=== PATIENT | male | born 1945 | race American Indian/Alaskan Native ===

== ENCOUNTER 2016-08-18 20:13 | Inpatient (IN) | payer MEDICARE ==
[2016-08-18] MEDS ORDERED: D50W (25GM) IV ONE (20:25)
--- NOTE | 2016-08-18 20:26 | Emergency Department Report ---
ED Neuro Deficit HPI - General Stated Complaint: AMS Time Seen by Provider: 08/18/16 20:19 - History of Present Illness Initial Comments: 70-year-old male with history of hypertension and end-stage renal disease on hemodialysis unclear when his last dialysis was brought in by ambulance due to altered mental status. Patient was found sitting outside by himself and not following commands. Per EMS he was able to get up and ambulate with some assistance at the scene. FS by ems was 64, gave oral glucose, improved to 76. He has been minimally verbal but stated to EMS that he did miss dialysis; unclear when his last dialysis was. - Related Data Home Medications: Home Medications Medication Instructions Recorded Confirmed Last Taken Doxazosin [Cardura] 2 mg PO QDAY 02/25/16 08/18/16 Unknown Furosemide [Lasix TAB] 80 mg PO QDAY 02/25/16 08/18/16 Unknown Losartan [Cozaar] 100 mg PO QDAY 02/25/16 08/18/16 Unknown QUEtiapine [SEROquel] 200 mg PO QHS 02/25/16 08/18/16 Unknown Sevelamer Carbonate [Renvela] 2,400 mg PO TIDWM 02/25/16 08/18/16 Unknown Sodium Bicarbonate 325 mg PO BID 02/25/16 08/18/16 Unknown hydrALAZINE [Apresoline] 50 mg PO Q8HR 02/25/16 08/18/16 Unknown Allergies/Adverse Reactions: Allergies Allergy/AdvReac Type Severity Reaction Status Date / Time Unable to Assess Allergy Verified 08/18/16 21:20 ED Review of Systems ROS: Stated complaint: AMS Other details as noted in HPI Comment: Unobtainable due to pts medical conditions ED Past Medical Hx - Past Medical History Hx Psychiatric Treatment: Yes - Social History Smoking Status: Unknown if ever smoked - Medications Home Medications: Home Medications Medication Instructions Recorded Confirmed Last Taken Type Doxazosin [Cardura] 2 mg PO QDAY 02/25/16 08/18/16 Unknown History Furosemide [Lasix TAB] 80 mg PO QDAY 02/25/16 08/18/16 Unknown History Losartan [Cozaar] 100 mg PO QDAY 02/25/16 08/18/16 Unknown History QUEtiapine [SEROquel] 200 mg PO QHS 12/05/16 05/29/17 Unknown History Sevelamer Carbonate [Renvela] 2,400 mg PO TIDWM 02/25/16 08/18/16 Unknown History Sodium Bicarbonate 325 mg PO BID 02/25/16 08/18/16 Unknown History hydrALAZINE [Apresoline] 50 mg PO Q8HR 02/25/16 08/18/16 Unknown History ED Neuro Physical Exam - General Limitations: Altered Mental Status General appearance: other (eyes open, unable to follow commands, drooling) Suspected Stroke: No - Head Head exam: Present: atraumatic, normocephalic - Eye Eye exam: Present: normal appearance - Respiratory Respiratory exam: Present: normal lung sounds bilaterally. Absent: respiratory distress - Cardiovascular Cardiovascular Exam: Present: regular rate, normal rhythm - GI/Abdominal GI/Abdominal exam: Present: soft. Absent: distended, tenderness - Neurological Exam Neurological exam: Present: other (awake but not following commands, will not lift arms or legs against gravity, will not squeeze with hands, drooling, no spontaneous speech, no speech on command) - Psychiatric Psychiatric exam: Present: flat affect - Skin Skin exam: Present: intact ED Course Vital Signs 08/18/16 08/18/16 21:07 22:05 Temperature 98.6 F Pulse Rate 102 H 98 H Respiratory 14 Rate Blood Pressure 211/86 Blood Pressure 201/98 [Right] O2 Sat by Pulse 97 Oximetry - Reevaluation(s) Reevaluation #1: 08/18/16 22:09 Patient has been trying to climb out of bed per nurse, moving all extremities, does not appear c/w stroke, more likely metabolic encephalopathy secondary to missing dialysis - Consultations Consultation #1: 08/18/16 21:33 Called for nephrology consult for dialysis as patient has ams and hyperkalemia 08/18/16 22:[address] 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, will arrange for dialysis now as dialysis nurse is in house - Lab Data Result diagrams: 08/18/16 21:17 08/18/16 20:25 Lab Results 08/18/16 08/18/16 08/18/16 Range/Units 20:25 20:37 21:17 WBC 5.4 (4.5-11.0) K/mm3 RBC 3.60 L (3.65-5.03) M/mm3 Hgb 11.3 L (11.8-15.2) gm/dl Hct 35.2 L (35.5-45.6) % MCV 98 H (84-94) fl MCH 31 (28-32) pg MCHC 32 (32-34) % RDW 16.5 H (13.2-15.2) % Plt Count 251 (140-440) K/mm3 Lymph % (Auto) Client Manager [employer] Fergus % (Auto) Client Manager [employer] Eos % (Auto) Client Manager [employer] Baso % (Auto) Client Manager [employer] Law Lymph # Client Manager [employer] Law Fergus # Client Manager [employer] Law Eos # Client Manager [employer] Law Baso # Client Manager [employer] Law Seg Neutrophils % Client Manager [employer] Law Seg Neutrophils # Client Manager Large Law PT (12.2-14.9) Sec. INR (0.87-1.13) APTT (24.2-36.6) Sec. Thrombin Time (15.1-19.6) Sec. POC ABG pH (7.35-7.45) POC ABG pCO2 (35-45) POC ABG pO2 (80-105) POC ABG HCO3 POC ABG Total CO2 POC ABG O2 Sat POC ABG Base Excess FiO2 % Sodium 143 (137-145) mmol/L Potassium 6.1 H* (3.6-5.0) mmol/L Chloride 102.0 (98-107) mmol/L Carbon Dioxide 14 L (22-30) mmol/L Anion Gap 33 mmol/L BUN 68 H (9-20) mg/dL Creatinine 14.4 H (0.8-1.5) mg/dL Estimated GFR 4 ml/min BUN/Creatinine Ratio 4.72 % Glucose 82 (75-100) mg/dL POC Glucose 114 H (70-105) Lactic Acid (0.7-2.0) mmol/L Calcium 9.4 (8.4-10.2) mg/dL Phosphorus (2.5-4.5) mg/dL Magnesium (1.7-2.3) mg/dL Total Bilirubin (0.1-1.2) mg/dL Direct Bilirubin (0-0.2) mg/dL Indirect Bilirubin mg/dL AST (5-40) units/L ALT (7-56) units/L Alkaline Phosphatase (35-129) units/L Troponin T 0.158 H* (0.00-0.029) ng/mL NT-Pro-B Natriuret Pep (0-900) pg/mL Total Protein (6.3-8.2) g/dL Albumin (3.9-5) g/dL Albumin/Globulin Ratio % Triglycerides 92 (2-149) mg/dL Cholesterol 154 (50-199) mg/dL LDL Cholesterol Direct 78 (50-130) mg/dL HDL Cholesterol 58 (40-59) mg/dL Cholesterol/HDL Ratio 2.65 % Salicylates (2.8-20.0) mg/dL Acetaminophen (10.0-30.0) ug/mL Plasma/Serum Alcohol (0-0.07) gm% 08/18/16 08/18/16 08/18/16 Range/Units 21:17 21:17 21:17 WBC (4.5-11.0) K/mm3 RBC (3.65-5.03) M/mm3 Hgb (11.8-15.2) gm/dl Hct (35.5-45.6) % MCV (84-94) fl MCH (28-32) pg MCHC (32-34) % RDW (13.2-15.2) % Plt Count (140-440) K/mm3 Lymph % (Auto) Fergus % (Auto) Eos % (Auto) Baso % (Auto) Lymph # Fergus # Eos # Baso # Seg Neutrophils % Seg Neutrophils # PT 14.0 (12.2-14.9) Sec. INR 1.09 (0.87-1.13) APTT 37.1 H (24.2-36.6) Sec. Thrombin Time 16.1 (15.1-19.6) Sec. POC ABG pH (7.35-7.45) POC ABG pCO2 (35-45) POC ABG pO2 (80-105) POC ABG HCO3 POC ABG Total CO2 POC ABG O2 Sat POC ABG Base Excess FiO2 % Sodium (137-145) mmol/L Potassium (3.6-5.0) mmol/L Chloride (98-107) mmol/L Carbon Dioxide (22-30) mmol/L Anion Gap mmol/L BUN (9-20) mg/dL Creatinine (0.8-1.5) mg/dL Estimated GFR ml/min BUN/Creatinine Ratio % Glucose (75-100) mg/dL POC Glucose (70-105) Lactic Acid (0.7-2.0) mmol/L Calcium (8.4-10.2) mg/dL Phosphorus 7.20 H (2.5-4.5) mg/dL Magnesium 2.60 H (1.7-2.3) mg/dL Total Bilirubin 0.70 (0.1-1.2) mg/dL Direct Bilirubin 0.2 (0-0.2) mg/dL Indirect Bilirubin 0.5 mg/dL AST 10 (5-40) units/L ALT 13 (7-56) units/L Alkaline Phosphatase 91 (35-129) units/L Troponin T (0.00-0.029) ng/mL NT-Pro-B Natriuret Pep 81058 H (0-900) pg/mL Total Protein 7.7 (6.3-8.2) g/dL Albumin 4.1 (3.9-5) g/dL Albumin/Globulin Ratio 1.1 % Triglycerides (2-149) mg/dL Cholesterol (50-199) mg/dL LDL Cholesterol Direct (50-130) mg/dL HDL Cholesterol (40-59) mg/dL Cholesterol/HDL Ratio % Salicylates (2.8-20.0) mg/dL Acetaminophen (10.0-30.0) ug/mL Plasma/Serum Alcohol (0-0.07) gm% 08/18/16 08/18/16 08/18/16 Range/Units 21:17 21:17 21:17 WBC (4.5-11.0) K/mm3 RBC (3.65-5.03) M/mm3 Hgb (11.8-15.2) gm/dl Hct (35.5-45.6) % MCV (84-94) fl MCH (28-32) pg MCHC (32-34) % RDW (13.2-15.2) % Plt Count (140-440) K/mm3 Lymph % (Auto) [place] % (Auto) Eos % (Auto) Baso % (Auto) Lymph # [place]ergus # Eos # Baso # Seg Neutrophils % Seg Neutrophils # PT (12.2-14.9) Sec. INR (0.87-1.13) APTT (24.2-36.6) Sec. Thrombin Time (15.1-19.6) Sec. POC ABG pH (7.35-7.45) POC ABG pCO2 (35-45) POC ABG pO2 (80-105) POC ABG HCO3 POC ABG Total CO2 POC ABG O2 Sat POC ABG Base Excess FiO2 % Sodium (137-145) mmol/L Potassium (3.6-5.0) mmol/L Chloride (98-107) mmol/L Carbon Dioxide (22-30) mmol/L Anion Gap mmol/L BUN (9-20) mg/dL Creatinine (0.8-1.5) mg/dL Estimated GFR ml/min BUN/Creatinine Ratio % Glucose (75-100) mg/dL POC Glucose (70-105) Lactic Acid (0.7-2.0) mmol/L Calcium (8.4-10.2) mg/dL Phosphorus (2.5-4.5) mg/dL Magnesium (1.7-2.3) mg/dL Total Bilirubin (0.1-1.2) mg/dL Direct Bilirubin (0-0.2) mg/dL Indirect Bilirubin mg/dL AST (5-40) units/L ALT (7-56) units/L Alkaline Phosphatase (35-129) units/L Troponin T (0.00-0.029) ng/mL NT-Pro-B Natriuret Pep (0-900) pg/mL Total Protein (6.3-8.2) g/dL Albumin (3.9-5) g/dL Albumin/Globulin Ratio % Triglycerides (2-149) mg/dL Cholesterol (50-199) mg/dL LDL Cholesterol Direct (50-130) mg/dL HDL Cholesterol (40-59) mg/dL Cholesterol/HDL Ratio % Salicylates < 0.3 L (2.8-20.0) mg/dL Acetaminophen < 15.0 (10.0-30.0) ug/mL Plasma/Serum Alcohol < 0.01 (0-0.07) gm% 08/18/16 08/18/16 08/18/16 Range/Units 21:17 21:31 22:39 WBC (4.5-11.0) K/mm3 RBC (3.65-5.03) M/mm3 Hgb (11.8-15.2) gm/dl Hct (35.5-45.6) % MCV (84-94) fl MCH (28-32) pg MCHC (32-34) % RDW (13.2-15.2) % Plt Count (140-440) K/mm3 Lymph % (Auto) [place] % (Auto) Eos % (Auto) Baso % (Auto) Lymph # Fergus # Eos # Baso # Seg Neutrophils % Seg Neutrophils # PT (12.2-14.9) Sec. INR (0.87-1.13) APTT (24.2-36.6) Sec. Thrombin Time (15.1-19.6) Sec. POC ABG pH 7.331 L (7.35-7.45) POC ABG pCO2 43.8 (35-45) POC ABG pO2 36 L (80-105) POC ABG HCO3 23.2 POC ABG Total CO2 24 POC ABG O2 Sat 64 POC ABG Base Excess -3 FiO2 21 % Sodium (137-145) mmol/L Potassium (3.6-5.0) mmol/L Chloride (98-107) mmol/L Carbon Dioxide (22-30) mmol/L Anion Gap mmol/L BUN (9-20) mg/dL Creatinine (0.8-1.5) mg/dL Estimated GFR ml/min BUN/Creatinine Ratio % Glucose (75-100) mg/dL POC Glucose 170 H (70-105) Lactic Acid 1.90 (0.7-2.0) mmol/L Calcium (8.4-10.2) mg/dL Phosphorus (2.5-4.5) mg/dL Magnesium (1.7-2.3) mg/dL Total Bilirubin (0.1-1.2) mg/dL Direct Bilirubin (0-0.2) mg/dL Indirect Bilirubin mg/dL AST (5-40) units/L ALT (7-56) units/L Alkaline Phosphatase (35-129) units/L Troponin T (0.00-0.029) ng/mL NT-Pro-B Natriuret Pep (0-900) pg/mL Total Protein (6.3-8.2) g/dL Albumin (3.9-5) g/dL Albumin/Globulin Ratio % Triglycerides (2-149) mg/dL Cholesterol (50-199) mg/dL LDL Cholesterol Direct (50-130) mg/dL HDL Cholesterol (40-59) mg/dL Cholesterol/HDL Ratio % Salicylates (2.8-20.0) mg/dL Acetaminophen (10.0-30.0) ug/mL Plasma/Serum Alcohol (0-0.07) gm% - Medical Decision Making Saw patient at triage, stroke code called due to neuro exam being limited. fs here > 100 CT head noncon, IV, labs, ekg, cxr ekg shows nsr without st-t changes, LAD, incomplete rbb with qrs of 100 (prior ekg from 04/01/16 shows qrs of 82), slight widening may be secondary to hyperkalemia labs show k of 6.1, hyperphosphatemia, hypermagnesemia troponin elevated but given ekg without significant ischemic changes it is more likely due to poor kidney function CT head and cxr negative per radiology for acute disease no clear other etiology for ams other than missing dialysis/electrolyte abnormalities/uremia hydralazine for hypertension consult nephro for dialysis, will admit for metabolic encephalopathy Critical Care Time: Yes Critical care time in (mins) excluding proc time.: 60 Critical care attestation.: If time is entered above; I have spent that time in minutes in the direct care of this critically ill patient, excluding procedure time. ED Disposition Clinical Impression: Hyperkalemia, diminished renal excretion, Hyperphosphatemia, Hypermagnesemia, Acute metabolic encephalopathy Disposition: OP ADMITTED IP TO THIS HOSP Is pt being admited?: Yes Does the pt Need Aspirin: No Condition: Serious Time of Disposition: 22:26 (Spoke to Dr. Don, will admit the patient)
[2016-08-18 20:51] LABS: BUN/Creatinine Ratio 4.72; Calcium 9.4 mg/dL (8.4-10.2)
[2016-08-18 21:04] LABS: Potassium 6.1 mmol/L (3.6-5.0)
--- NOTE | 2016-08-18 21:09 | Cat Scan Report ---
FINAL REPORT EXAM: CT HEAD/BRAIN WO CON HISTORY: neuro deficits \T\lt; 6hrs or sx present upon awakening TECHNIQUE: CT head without contrast PRIORS: None. FINDINGS: No acute intra-axial or extra-axial hemorrhage is identified. There is no evidence of midline shift or mass effect. The ventricles and sulci are within normal limits. Hernández-white matter differentiation is intact. No acute parenchymal abnormalities seen. There is mild age-related generalized volume loss there are patchy and confluent hypodensities within the supratentorial white matter. Bony calvarium is grossly intact. Visualized portions of the mastoids and paranasal sinuses are unremarkable. IMPRESSION: Chronic small vessel white matter ischemic change
[2016-08-18] MEDS ORDERED: SODIUM BICARBONATE IV ONE ×2 (21:25)
[2016-08-18] MEDS ORDERED: PROVENTIL IH ONE (21:25)
[2016-08-18] MEDS ORDERED: APRESOLINE IV ONE ×2 (21:30→22:51)
[2016-08-18] MEDS ORDERED: CALCIUM GLUCONATE 1,000 MG in NACL 0.9% 100 ML IV ONE (21:32)
--- NOTE | 2016-08-18 21:39 | XRay Report ---
FINAL REPORT EXAM: XR CHEST 1V AP HISTORY: ams TECHNIQUE: upright single view chest PRIORS: None. FINDINGS: Cardiac and mediastinal contours are unremarkable. No focal pulmonary infiltrate is identified. No pleural fluid collection seen. Pulmonary vasculature is unremarkable. IMPRESSION: Negative single-view chest
[2016-08-18 21:42] LABS: Hematocrit 35.2 % (35.5-45.6); Hemoglobin 11.3 gm/dl (11.8-15.2); Mean Corpuscular HGB Conc 32 % (32-34); Mean Corpuscular Hemoglobin 31 pg (28-32); Mean Corpuscular Volume 98 fl (84-94); Platelet Count 251 K/mm3 (140-440); Red Cell Distribution Width 16.5 % (13.2-15.2); White Blood Count 5.4 K/mm3 (4.5-11.0)
[2016-08-18 21:50] LABS: INR 1.09 (0.87-1.13)
[2016-08-18 21:51] LABS: Partial Thromboplastin Time 37.1 Sec. (24.2-36.6)
[2016-08-18 22:01] LABS: Albumin 4.1 g/dL (3.9-5); Albumin/Globulin Ratio 1.1 %; Bilirubin,Direct 0.2 mg/dL (0-0.2); Bilirubin,Indirect 0.5 mg/dL; Bilirubin,Total 0.7 mg/dL (0.1-1.2); Magnesium 2.6 mg/dL (1.7-2.3); Phosphorous 7.2 mg/dL (2.5-4.5); Total Protein 7.7 g/dL (6.3-8.2)
[2016-08-18] MEDS ORDERED: NACL 0.9% 100 ML IV PRN (22:21)
[2016-08-18] MEDS ORDERED: DULCOLAX PR PRN (22:46)
[2016-08-18] MEDS ORDERED: ZOFRAN IV PRN (22:46)
--- NOTE | 2016-08-18 22:49 | History and Physical Report ---
History of Present Illness Date of examination: 08/18/16 History of present illness: 70-year-old man with a history of hypertension, end-stage renal disease on dialysis old brought to the emergency room for altered mental status. It was reported that the patient missed dialysis. Old records indicate that the patient has a psychiatric illness Patient is unable to give a history or review of system PAST SURGICAL HISTORY: Unknown SOCIAL HISTORY: Unknown FAMILY HISTORY: Unknown Medications and Allergies Allergies Allergy/AdvReac Type Severity Reaction Status Date / Time Unable to Assess Allergy Verified 08/18/16 21:20 Home Medications Medication Instructions Recorded Confirmed Last Taken Type Doxazosin [Cardura] 2 mg PO QDAY 02/25/16 08/18/16 Unknown History Furosemide [Lasix TAB] 80 mg PO QDAY 02/25/16 08/18/16 Unknown History Losartan [Cozaar] 100 mg PO QDAY 02/25/16 08/18/16 Unknown History QUEtiapine [SEROquel] 200 mg PO QHS 02/25/16 08/18/16 Unknown History Sevelamer Carbonate [Renvela] 2,400 mg PO TIDWM 02/25/16 08/18/16 Unknown History Sodium Bicarbonate 325 mg PO BID 02/25/16 08/18/16 Unknown History hydrALAZINE [Apresoline] 50 mg PO Q8HR 02/25/16 08/18/16 Unknown History Active Meds: Active Medications Sodium Chloride (Nacl 0.9%) 100 mls @ 999 mls/hr IV LIO PRN PRN Reason: Hypotension Nicardipine HCl 50 mg/ Sodium (Chloride) 250 mls @ 25 mls/hr IV TITR DORITA; 5 MG/ HR PRN Reason: Protocol Exam - Physical Exam Narrative exam: Gen. appearance: Patient lying in bed, no apparent distress HEENT: Normocephalic, atraumatic, pupils equally round and reactive to light, extraocular movement intact, and no sclericterus,. No JVD or thyromegaly or nodule,neck supple, no carotid bruit ,mucous membranes moist, no exudate or erythema Heart: S1, S2, regular rate and rhythm Lungs: Clear to auscultation anteriorly bilaterally, breathing comfortable Abdomen: Positive bowel sounds, nontender, nondistended, no organomegaly Extremity: No edema, cyanosis, clubbing Skin: No rash, nodules, warm, dry Neuro: Oriented 0, moves all four extremities - Constitutional Vitals: Temp Pulse Resp BP Pulse Ox 98.6 F 98 H 14 211/86 97 08/18/16 21:07 08/18/16 22:05 08/18/16 21:07 08/18/16 22:05 08/18/16 21:07 Results - Labs CBC & Chem 7: 08/18/16 21:08/18/16 20:25 Labs: Abnormal lab results 08/18/16 08/18/16 08/18/16 Range/Units 20:25 20:37 21:17 RBC 3.60 L (3.65-5.03) M/mm3 Hgb 11.3 L (11.8-15.2) gm/dl Hct 35.2 L (35.5-45.6) % MCV 98 H (84-94) fl RDW 16.5 H (13.2-15.2) % APTT (24.2-36.6) Sec. Potassium 6.1 H* (3.6-5.0) mmol/L Carbon Dioxide 14 L (22-30) mmol/L BUN 68 H (9-20) mg/dL Creatinine 14.4 H (0.8-1.5) mg/dL POC Glucose 114 H (70-105) Phosphorus (2.5-4.5) mg/dL Magnesium (1.7-2.3) mg/dL Troponin T 0.158 H* (0.00-0.029) ng/mL NT-Pro-B Natriuret Pep (0-900) pg/mL Salicylates (2.8-20.0) mg/dL 08/18/16 08/18/16 08/18/16 Range/Units 21:17 21: 21:17 RBC (3.65-5.03) M/mm3 Hgb (11.8-15.2) gm/dl Hct (35.5-45.6) % MCV (84-94) fl RDW (13.2-15.2) % APTT 37.1 H (24.2-36.6) Sec. Potassium (3.6-5.0) mmol/L Carbon Dioxide (22-30) mmol/L BUN (9-20) mg/dL Creatinine (0.8-1.5) mg/dL POC Glucose (70-105) Phosphorus 7.20 H (2.5-4.5) mg/dL Magnesium 2.60 H (1.7-2.3) mg/dL Troponin T (0.00-0.029) ng/mL NT-Pro-B Natriuret Pep 97787 H (0-900) pg/mL Salicylates < 0.3 L (2.8-20.0) mg/dL 08/18/16 Range/Units 21:31 RBC (3.65-5.03) M/mm3 Hgb (11.8-15.2) gm/dl Hct (35.5-45.6) % MCV (84-94) fl RDW (13.2-15.2) % APTT (24.2-36.6) Sec. Potassium (3.6-5.0) mmol/L Carbon Dioxide (22-30) mmol/L BUN (9-20) mg/dL Creatinine (0.8-1.5) mg/dL POC Glucose 170 H (70-105) Phosphorus (2.5-4.5) mg/dL Magnesium (1.7-2.3) mg/dL Troponin T (0.00-0.029) ng/mL NT-Pro-B Natriuret Pep (0-900) pg/mL Salicylates (2.8-20.0) mg/dL - Imaging and Cardiology EKG: image reviewed Chest x-ray: image reviewed CT Scan - head: report reviewed Assessment and Plan Altered mental status most likely secondary to metabolic in nature end-stage renal disease as needing dialysis Hypertensive urgency Hyperkalemia Psychiatric disorder Admit to medicine Renal was consulted for Stat dialysis Start Cardene drip consult critical care Check cardiac enzymes, echo Start DVT prophylaxis
[2016-08-18] MEDS ORDERED: NITRO-BID 2% TP ONE (22:51)
[2016-08-18] MEDS ORDERED: APRESOLINE IV PRN (22:51)
[2016-08-18 22:52] LABS: ISTAT Base Excess -3; ISTAT DEVICE 0; ISTAT HCO3 23.2; ISTAT PCO2 43.8 (35-45); ISTAT PH 7.331 (7.35-7.45); ISTAT PO2 36 (80-105); ISTAT SO2 64; ISTAT TCO2 24
[2016-08-18] MEDS ORDERED: CARDENE 50 MG in NACL 0.9% 250ML 230 ML IV SCH (23:00)
[2016-08-19 00:07] LABS: Creatine Kinase MB 4.8 ng/mL (0.0-4.0)
--- NOTE | 2016-08-19 08:39 | Admit Criteria Form ---
Admission Criteria Documentation: HYPONATREMIA; HYPERNATREMIA; HYPOKALEMIA; HYPERKALEMIA; HYPOCALCEMIA; HYPERCALCEMIA Clinical Indications for Inpatient Care (Place 'X' for any and all applicable criteria): Ongoing inpatient care may be indicated for ANY ONE of the following [G](1)(2)(3 )(5): [ ]I. Hyponatremia with ANY ONE of the following: [ ]a) Sodium less than 130 mEq/L (mmol/L) (new) (6)(22) [ ]b) Sodium less than 135 mEq/L (mmol/L) with ANY ONE of the following: [ ]i) Severe medical etiology requiring inpatient management (eg, heart failure, hypovolemia) [ ]ii) Altered mental status [ ]iii) Seizures [ ]II. Hypernatremia with ANY ONE of the following: [ ]a) Sodium greater than 155 mEq/L (mmol/L) [ ]b) Sodium greater than 150 mEq/L (mmol/L) with ANY ONE of the following: [ ] i) Altered mental status [ ]ii) Seizures [ ]iii) Severe medical etiology (eg, hypovolemia, diabetes insipidus) [ ]iv) Severe weakness [ ]v) Severe medical etiology (eg, hemolysis, infection, drug overdose) [ ]III. Hypokalemia with ANY ONE of the following: [ ]a) Potassium less than 2.5 mEq/L (mmol/L) despite outpatient and emergency treatment [ ]b) Potassium less than 3.0 mEq/L (mmol/L) with ANY ONE of the following: [ ]i) Weakness [ ]ii) Cardiac abnormality (eg, arrhythmia, conduction disturbance) [ ]iii) Cardiac ischemia [ ]iv) Ileus [ ]v) Ongoing medical cause requiring inpatient management. ( e.g., acute renal wasting, SIADH) [ ]vi) Other severe symptoms [X] IV. Hyperkalemia with ANY ONE of the following: [ ]a) Potassium greater than 6.5 mEq/L (mmol/L) [X]b) Potassium greater than 5 mEq/L (mmol/L) with ANY ONE of the following: [ ]i) Severe ECG findings [H] [X]ii) Acute worsening of renal failure (creatinine greater than 2.5 mg/dL (221 micromoles/L) or significant elevation for age and size) [ ] V. Hypocalcemia with ANY ONE of the following: [ ]a) Calcium less than 7 mg/dL (1.75 mmol/L) despite outpatient and emergency treatment(19) [ ]b) Calcium less than 8 mg/dL (2 mmol/L) with significant symptoms or findings; examples include: [ ]i) Cardiac abnormality (eg, arrhythmia or conduction disturbance) [ ]ii) Altered mental status [ ]iii) Seizures [ ]iv) Breathing difficulty [ ]v) Muscle spasms [ ]. Hypercalcemia with ANY ONE of the following: [ ]a) Calcium greater than 14 mg/dL (3.5 mmol/L) [ ]b) Calcium greater than 12 mg/dL (3 mmol/L) with ANY ONE of the following: [ ]i) Significant dehydration or hypovolemia as indicated by ANY ONE of the following(2): [ ]1. Clinically significant dehydration as indicated by ANY ONE of the following: [ ]A. Acute loss of weight from baseline (5% of body weight in adults, 9% in pediatric patients) [ ]B. Hemodynamic instability [ ]C. Acute renal failure [ ]D. Serum sodium greater than 150 mEq/L (mmol/L) [ ]2) Dehydration that is persistent indicated by ALL of the following: [ ]A. Oral rehydration therapy not tolerated or insufficient to adequately correct dehydration [ ]B. Appropriate intravenous treatment (eg, fluids ) does not readily correct dehydration ie, after 12 to 24 hours of treatment) [ ]ii) Significant symptoms or findings; examples include: [ ]1) Altered mental status [ ]2) Cardiac abnormality (eg, arrhythmia, conduction disturbance) [ ]3) Cardiac abnormality (eg, arrhythmia, conduction disturbance) The original [facility] content created by [employer] has been revised. The portions of the content which have been revised are identified through the use of italic text or in bold, and [employer] has neither reviewed nor approved the modified material. All other unmodified content is copyright [facility] [employer] Please see references footnoted in the original [facility] [employer] edition 2016 Admission Criteria Met: Yes
[2016-08-19 09:16] LABS: BUN/Creatinine Ratio 3.52; Calcium 8.9 mg/dL (8.4-10.2); Chloride 97.3 mmol/L (98-107); Potassium 3.8 mmol/L (3.6-5.0)
[2016-08-19 09:17] LABS: Creatine Kinase MB 5.9 ng/mL (0.0-4.0)
[2016-08-19 09:41] LABS: Basophils % (Auto) 0.8 % (0.0-1.8); Eosinophils % (Auto) 0.9 % (0.0-4.3); Hematocrit 34.8 % (35.5-45.6); Hemoglobin 11.2 gm/dl (11.8-15.2); Mean Corpuscular HGB Conc 32 % (32-34); Mean Corpuscular Hemoglobin 31 pg (28-32); Mean Corpuscular Volume 97 fl (84-94); Platelet Count 245 K/mm3 (140-440); Red Cell Distribution Width 16.5 % (13.2-15.2); White Blood Count 6.7 K/mm3 (4.5-11.0)
[2016-08-19] MEDS: LOVENOX SUB-Q SCH (10:30)
--- NOTE | 2016-08-19 13:04 | Consultation ---
History of Present Illness Consult date: 08/19/16 Requesting physician: NAGI THORNTON Reason for consult: other (Acute Encephalopathy; Hypertensive Emergency) History of present illness: PULMONARY/CCM CONSULT NOTE (Full dictation # [id number]) Please see dictated notes for full details Medications and Allergies Allergies Allergy/AdvReac Type Severity Reaction Status Date / Time No Known Allergies Allergy Verified 08/19/16 10:17 Home Medications Medication Instructions Recorded Confirmed Last Taken Type Doxazosin [Cardura] 2 mg PO QDAY 02/25/16 08/18/16 Unknown History Furosemide [Lasix TAB] 80 mg PO QDAY 02/25/16 08/18/16 Unknown History Losartan [Cozaar] 100 mg PO QDAY 02/25/16 08/18/16 Unknown History QUEtiapine [SEROquel] 200 mg PO QHS 02/25/16 08/18/16 Unknown History Sevelamer Carbonate [Renvela] 2,400 mg PO TIDWM 02/25/16 08/18/16 Unknown History Sodium Bicarbonate 325 mg PO BID 02/25/16 08/18/16 Unknown History hydrALAZINE [Apresoline] 50 mg PO Q8HR 02/25/16 08/18/16 Unknown History Active Meds: Active Medications Acetaminophen (Tylenol) 650 mg PO Q4H PRN PRN Reason: Pain MILD(1-3)/Fever >100.5/HOWARD Bisacodyl (Dulcolax) 10 mg HI QDAY PRN PRN Reason: Constipation unrelieved by MOM Enoxaparin Sodium (Lovenox) 30 mg SUB-Q QDAY DORITA Last Admin: 08/19/16 10:30 Dose: 30 mg Sodium Chloride (Nacl 0.9%) 100 mls @ 999 mls/hr IV LIO PRN PRN Reason: Hypotension Nicardipine HCl 50 mg/ Sodium (Chloride) 250 mls @ 25 mls/hr IV TITR DORITA; 5 MG/ HR PRN Reason: Protocol Last Titration: 08/19/16 01:30 Dose: 0 mg/hr, 0 mls/hr Ondansetron HCl (Zofran) 4 mg IV Q8H PRN PRN Reason: N/V unrelieved by Reglan Last Admin: 08/19/16 00:50 Dose: 4 mg Physical Examination Vital signs: Vital Signs Pulse Resp 104 H 11 L 08/18/16 20:57 08/18/16 20:57 Results - Laboratory Findings CBC and BMP: 08/19/16 08:05 08/19/16 08:05 ABG POC ABG pH 7.331 (7.35-7.45) L 08/18/16 22:39 POC ABG pCO2 43.8 (35-45) 08/18/16 22:39 POC ABG pO2 36 (80-105) L 08/18/16 22:39 POC ABG HCO3 23.2 08/18/16 22:39 POC ABG Total CO2 24 08/18/16 22:39 POC ABG O2 Sat 64 08/18/16 22:39 PT/INR, D-dimer PT 14.0 Sec. (12.2-14.9) 08/18/16 21:17 INR 1.09 (0.87-1.13) 08/18/16 21:17 Abnormal lab findings: Abnormal Labs 08/18/16 08/19/16 08/19/16 23:31 08:05 08:05 RBC 3.60 L Hgb 11.2 L Hct 34.8 L MCV 97 H RDW 16.5 H [place] % (Auto) 11.6 H Lymph # 1.0 L Seg Neutrophils % 71.8 H Chloride 97.3 L BUN 31 H Creatinine 8.8 H Glucose 102 H CK-MB (CK-2) 4.8 H CK-MB (CK-2) Rel Index 5.7 H Troponin T 0.148 H* 08/19/16 08:05 RBC Hgb Hct MCV RDW [place] % (Auto) Lymph # Seg Neutrophils % Chloride BUN Creatinine Glucose CK-MB (CK-2) 5.9 H CK-MB (CK-2) Rel Index Troponin T 0.188 H* D
[2016-08-19] MEDS ORDERED: PROVENTIL IH PRN (13:20)
--- NOTE | 2016-08-19 13:59 | XRay Report ---
AP CHEST: HISTORY: Hypoxemia Cardiomegaly is unchanged since yesterday's exam. Pulmonary vascularity is borderline. The lungs are generally clear. Trace right pleural effusion is noted and unchanged. No evidence for pneumonia or pneumothorax. IMPRESSION: Cardiomegaly and trace right pleural effusion.
--- NOTE | 2016-08-19 14:03 | Progress Note ---
Assessment and Plan Assessment and plan: Acute metabolic encephalopathy. Patient will continue with hemodialysis per nephrology. Patient may have some underlying baseline psychiatric disorder per history. Psychiatric evaluation. Attempt to contact family regarding psych history and ? EtOH use. ESRD. Continue hemodialysis per nephrology. Accelerated hypertension. Wean Cardene drip and start by mouth medications. Hyperkalemia. Resolved. History Interval history: No new issues overnight. Hospitalist Physical - Constitutional Vitals: Temp Pulse Resp BP Pulse Ox 98 F 82 13 108/57 100 08/19/16 12:00 08/19/16 12:10 08/19/16 12:10 08/19/16 12:10 08/19/16 12:10 General appearance: Present: no acute distress, well-nourished - EENT Eyes: Present: PERRL, EOM intact ENT: hearing intact, clear oral mucosa, dentition normal - Neck Neck: Present: supple, normal ROM - Respiratory Respiratory effort: normal Respiratory: bilateral: CTA - Cardiovascular Rhythm: regular Heart Sounds: Present: S1 & S2. Absent: gallop, rub - Extremities Extremities: no ischemia, No edema, Full ROM - Abdominal General gastrointestinal: soft, non-tender, non-distended, normal bowel sounds - Integumentary Integumentary: Present: clear, warm, dry - Neurologic Neurologic: CNII-XII intact, moves all extremities Results - Labs CBC & Chem 7: 08/19/16 08:05 08/19/16 08:05 Labs: Laboratory Last Values WBC 6.7 K/mm3 (4.5-11.0) 08/19/16 08:05 RBC 3.60 M/mm3 (3.65-5.03) L 08/19/16 08:05 Hgb 11.2 gm/dl (11.8-15.2) L 08/19/16 08:05 Hct 34.8 % (35.5-45.6) L 08/19/16 08:05 MCV 97 fl (84-94) H 08/19/16 08:05 MCH 31 pg (28-32) 08/19/16 08:05 MCHC 32 % (32-34) 08/19/16 08:05 RDW 16.5 % (13.2-15.2) H 08/19/16 08:05 Plt Count 245 K/mm3 (140-440) 08/19/16 08:05 Lymph % (Auto) 14.9 % (13.4-35.0) 08/19/16 08:05 [place] % (Auto) 11.6 % (0.0-7.3) H 08/19/16 08:05 Eos % (Auto) 0.9 % (0.0-4.3) 08/19/16 08:05 Baso % (Auto) 0.8 % (0.0-1.8) 08/19/16 08:05 Lymph # 1.0 K/mm3 (1.2-5.4) L 08/19/16 08:05 [place] # 0.8 K/mm3 (0.0-0.8) 08/19/16 08:05 Eos # 0.1 K/mm3 (0.0-0.4) 08/19/16 08:05 Baso # 0.1 K/mm3 (0.0-0.1) 08/19/16 08:05 Seg Neutrophils % 71.8 % (40.0-70.0) H 08/19/16 08:05 Seg Neutrophils # 4.8 K/mm3 (1.8-7.7) 08/19/16 08:05 PT 14.0 Sec. (12.2-14.9) 08/18/16 21:17 INR 1.09 (0.87-1.13) 08/18/16 21:17 APTT 37.1 Sec. (24.2-36.6) H 08/18/16 21:17 Thrombin Time 16.1 Sec. (15.1-19.6) 08/18/16 21:17 POC ABG pH 7.331 (7.35-7.45) L 08/18/16 22:39 POC ABG pCO2 43.8 (35-45) 08/18/16 22:39 POC ABG pO2 36 (80-105) L 08/18/16 22:39 POC ABG HCO3 23.2 08/18/16 22:39 POC ABG Total CO2 24 08/18/16 22:39 POC ABG O2 Sat 64 08/18/16 22:39 POC ABG Base Excess -3 08/18/16 22:39 FiO2 21 % 08/18/16 22:39 Sodium 144 mmol/L (137-145) 08/19/16 08:05 Potassium 3.8 mmol/L (3.6-5.0) D 08/19/16 08:05 Chloride 97.3 mmol/L (98-107) L 08/19/16 08:05 Carbon Dioxide 27 mmol/L (22-30) D 08/19/16 08:05 Anion Gap 24 mmol/L 08/19/16 08:05 BUN 31 mg/dL (9-20) H 08/19/16 08:05 Creatinine 8.8 mg/dL (0.8-1.5) H 08/19/16 08:05 Estimated GFR 7 ml/min 08/19/16 08:05 BUN/Creatinine Ratio 3.52 % 08/19/16 08:05 Glucose 102 mg/dL (75-100) H 08/19/16 08:05 POC Glucose 170 (70-105) H 08/18/16 21:31 Lactic Acid 1.90 mmol/L (0.7-2.0) 08/18/16 21:17 Calcium 8.9 mg/dL (8.4-10.2) 08/19/16 08:05 Phosphorus 7.20 mg/dL (2.5-4.5) H 08/18/16 21:17 Magnesium 2.60 mg/dL (1.7-2.3) H 08/18/16 21:17 Total Bilirubin 0.70 mg/dL (0.1-1.2) 08/18/16 21:17 Direct Bilirubin 0.2 mg/dL (0-0.2) 08/18/16 21:17 Indirect Bilirubin 0.5 mg/dL 08/18/16 21:17 AST 10 units/L (5-40) 08/18/16 21:17 ALT 13 units/L (7-56) 08/18/16 21:17 Alkaline Phosphatase 91 units/L (35-129) 08/18/16 21:17 Total Creatine Kinase 165 units/L (55-170) 08/19/16 08:05 CK-MB (CK-2) 5.9 ng/mL (0.0-4.0) H 08/19/16 08:05 CK-MB (CK-2) Rel Index 3.5 (0-4) 08/19/16 08:05 Troponin T 0.188 ng/mL (0.00-0.029) H* D 08/19/16 08:05 C-Reactive Protein 0.60 mg/dL (0.00-1.30) 08/19/16 08:05 NT-Pro-B Natriuret Pep 71142 pg/mL (0-900) H 08/18/16 21:17 Total Protein 7.7 g/dL (6.3-8.2) 08/18/16 21: Albumin 4.1 g/dL (3.9-5) 08/18/16 21: Albumin/Globulin Ratio 1.1 % 08/18/16 21: Triglycerides 92 mg/dL (2-149) 08/18/16 20:25 Cholesterol 154 mg/dL (50-199) 08/18/16 20:25 LDL Cholesterol Direct 78 mg/dL (50-130) 08/18/16 20:25 HDL Cholesterol 58 mg/dL (40-59) 08/18/16 20:25 Cholesterol/HDL Ratio 2.65 % 08/18/16 20:25 Salicylates < 0.3 mg/dL (2.8-20.0) L 08/18/16 21: Acetaminophen < 15.0 ug/mL (10.0-30.0) 08/18/16 21: Plasma/Serum Alcohol < 0.01 gm% (0-0.07) 08/18/16 21:17
--- NOTE | 2016-08-19 17:02 | Consultation ---
History of Present Illness - Reason for Consult Consult date: 08/19/16 end stage renal disease, accelerated hypertension Requesting physician: NAGI THORNTON - History of Present Illness This is a 70yo AAM with history of hypertension and end-stage renal disease on hemodialysis, who was brought in to [facility] ER by ambulance due to altered mental status. it is reported that Pt was found sitting outside by himself and not following commands. Per EMS he was able to get up and ambulate with some assistance. He has been minimally verbal but stated to EMS that he did miss dialysis; it is unclear where he gets his maintenance hemodialysis and when his last dialysis was. Pt seen and examined at bedside, opening eyes, however non- verbal, not following commands. Past History Past Medical History: ESRD, hypertension Past Surgical History: No surgical history Social history: no significant social history Family history: no significant family history Medications and Allergies Allergies Allergy/AdvReac Type Severity Reaction Status Date / Time No Known Allergies Allergy Verified 08/19/16 10:17 Home Medications Medication Instructions Recorded Confirmed Last Taken Type Doxazosin [Cardura] 2 mg PO QDAY 02/25/16 08/18/16 Unknown History Furosemide [Lasix TAB] 80 mg PO QDAY 02/25/16 08/18/16 Unknown History Losartan [Cozaar] 100 mg PO QDAY 02/25/16 08/18/16 Unknown History QUEtiapine [SEROquel] 200 mg PO QHS 02/25/16 08/18/16 Unknown History Sevelamer Carbonate [Renvela] 2,400 mg PO TIDWM 02/25/16 08/18/16 Unknown History Sodium Bicarbonate 325 mg PO BID 02/25/16 08/18/16 Unknown History hydrALAZINE [Apresoline] 50 mg PO Q8HR 02/25/16 08/18/16 Unknown History Active Meds: Active Medications Acetaminophen (Tylenol) 650 mg PO Q4H PRN PRN Reason: Pain MILD(1-3)/Fever >100.5/HOWARD Albuterol (Proventil) 2.5 mg IH Q4HRT PRN PRN Reason: Shortness Of Breath Arformoterol Tartrate (Brovana Nebu) 15 mcg IH Q12HRT [facility]ORITA Bisacodyl (Dulcolax) 10 mg [place] QDAY PRN PRN Reason: Constipation unrelieved by MOM Budesonide (Pulmicort) 0.5 mg IH Q12HRT [facility] Doxazosin Mesylate (Cardura) 2 mg PO QDAY [facility] Enoxaparin Sodium (Lovenox) 30 mg SUB-Q QDAY [facility] Last Admin: 08/19/16 10:30 Dose: 30 mg Furosemide (Lasix) 80 mg PO DAILY@0600 [facility] Hydralazine HCl (Apresoline) 50 mg PO Q8HR [facility] Sodium Chloride (Nacl 0.9%) 100 mls @ 999 mls/hr IV LIO PRN PRN Reason: Hypotension Losartan Potassium (Cozaar) 100 mg PO QDAY [facility]OR[facility] Ondansetron HCl (Zofran) 4 mg IV Q8H PRN PRN Reason: N/V unrelieved by Reglan Last Admin: 08/19/16 00:50 Dose: 4 mg Pantoprazole Sodium (Protonix) 40 mg IV QDAY [facility] Quetiapine Fumarate (Seroquel) 200 mg PO QHS [facility] Sevelamer Carbonate (Renvela) 2,400 mg PO TIDWM [facility] Sodium Bicarbonate (Sodium Bicarbonate) 325 mg PO BID [facility] Review of Systems ROS unobtainable: due to mental status Exam - Vital Signs Vital signs: Vital Signs Pulse Resp 104 H 11 L 08/18/16 20:57 08/18/16 20:57 - General Appearance General appearance: well-developed, well-nourished, appears stated age EENT: ATNC, PERRL Neck: Present: neck supple Respiratory: Clear to Ascultation Heart: regular, S1S2 Gastrointestinal: Present: normal, normoactive bowel sounds Integumentary: no rash Neurologic: confused, disoriented Psychiatric: other (blunt affect ) Results - Lab Results 08/19/16 08:05 08/19/16 08:05 Most recent lab results Calcium 8.9 mg/dL (8.4-10.2) 08/19/16 08:05 Phosphorus 7.20 mg/dL (2.5-4.5) H 08/18/16 21:17 Magnesium 2.60 mg/dL (1.7-2.3) H 08/18/16 21:17 Laboratory Tests 08/18/16 08/18/16 08/18/16 20:25 21:17 21:17 PT 14.0 INR 1.09 APTT 37.1 H Thrombin Time 16.1 POC ABG pH POC ABG pCO2 POC ABG pO2 POC ABG HCO3 POC ABG Total CO2 POC ABG O2 Sat POC ABG Base Excess FiO2 Total Creatine Kinase CK-MB (CK-2) CK-MB (CK-2) Rel Index Troponin T 0.158 H* C-Reactive Protein NT-Pro-B Natriuret Pep Total Protein Albumin Albumin/Globulin Ratio Triglycerides 92 Cholesterol 154 LDL Cholesterol Direct 78 HDL Cholesterol 58 Cholesterol/HDL Ratio 2.65 TSH Salicylates Acetaminophen Plasma/Serum Alcohol 08/18/16 08/18/16 08/18/16 21:17 21:17 21:17 PT INR APTT Thrombin Time POC ABG pH POC ABG pCO2 POC ABG pO2 POC ABG HCO3 POC ABG Total CO2 POC ABG O2 Sat POC ABG Base Excess FiO2 Total Creatine Kinase CK-MB (CK-2) CK-MB (CK-2) Rel Index Troponin T C-Reactive Protein NT-Pro-B Natriuret Pep 73331 H Total Protein 7.7 Albumin 4.1 Albumin/Globulin Ratio 1.1 Triglycerides Cholesterol LDL Cholesterol Direct HDL Cholesterol Cholesterol/HDL Ratio TSH Salicylates < 0.3 L Acetaminophen < 15.0 Plasma/Serum Alcohol 08/18/16 08/18/16 08/18/16 21:17 22:39 23:31 PT INR APTT Thrombin Time POC ABG pH 7.331 L POC ABG pCO2 43.8 POC ABG pO2 36 L POC ABG HCO3 23.2 POC ABG Total CO2 24 POC ABG O2 Sat 64 POC ABG Base Excess -3 FiO2 21 Total Creatine Kinase 84 CK-MB (CK-2) 4.8 H CK-MB (CK-2) Rel Index 5.7 H Troponin T C-Reactive Protein NT-Pro-B Natriuret Pep Total Protein Albumin Albumin/Globulin Ratio Triglycerides Cholesterol LDL Cholesterol Direct HDL Cholesterol Cholesterol/HDL Ratio TSH Salicylates Acetaminophen Plasma/Serum Alcohol < 0.01 08/19/16 08/19/16 08/19/16 08:05 08:05 15:41 PT INR APTT Thrombin Time POC ABG pH POC ABG pCO2 POC ABG pO2 POC ABG HCO3 POC ABG Total CO2 POC ABG O2 Sat POC ABG Base Excess FiO2 Total Creatine Kinase 165 CK-MB (CK-2) 5.9 H CK-MB (CK-2) Rel Index 3.5 Troponin T 0.188 H* D C-Reactive Protein 0.60 NT-Pro-B Natriuret Pep Total Protein Albumin Albumin/Globulin Ratio Triglycerides Cholesterol LDL Cholesterol Direct HDL Cholesterol Cholesterol/HDL Ratio TSH 1.210 Salicylates Acetaminophen Plasma/Serum Alcohol Assessment and Plan - Patient Problems (1) Hypertensive emergency Current Visit: Yes Status: Acute Plan to address problem: BP improved with HD/UF, resume home BP meds. Transferred to the floor. (2) End-stage renal disease (ESRD) Current Visit: Yes Status: Acute Plan to address problem: s/p urgent HD for correction of metabolic acidosis/hyperkalemia and metabolic ( uremic) encephalopathy. continue HD MWF schedule. Will attempt to get outpatient HD records. (3) Hyperkalemia, diminished renal excretion Current Visit: Yes Status: Acute Plan to address problem: resolved with HD, cont low K renal diet. (4) Acute metabolic encephalopathy Current Visit: Yes Status: Acute Plan to address problem: pt with h/o underlying psychiatric disorder. uremic encephalopathy after missing HD may contribute.
[2016-08-19] MEDS: RENVELA PO SCH (17:51)
[2016-08-19] MEDS: PROTONIX IV SCH (17:59)
[2016-08-19] MEDS: BROVANA NEBU IH SCH ×2 (18:00→19:53)
[2016-08-19 18:44] LABS: ISTAT Base Excess 3; ISTAT HCO3 27.8; ISTAT PCO2 47.3 (35-45); ISTAT PH 7.378 (7.35-7.45); ISTAT PO2 114 (80-105); ISTAT SO2 98; ISTAT TCO2 29
[2016-08-19] MEDS: PULMICORT IH SCH (19:53)
[2016-08-19] MEDS: SODIUM BICARBONATE PO SCH (22:42)
[2016-08-19] MEDS: APRESOLINE PO SCH (22:42)
[2016-08-20 06:58] LABS: Basophils % (Auto) 0.3 % (0.0-1.8); Eosinophils % (Auto) 0.3 % (0.0-4.3); Hematocrit 31.5 % (35.5-45.6); Hemoglobin 10.1 gm/dl (11.8-15.2); Mean Corpuscular HGB Conc 32 % (32-34); Mean Corpuscular Hemoglobin 31 pg (28-32); Mean Corpuscular Volume 97 fl (84-94); Platelet Count 187 K/mm3 (140-440); Red Blood Count 3.26 M/mm3 (3.65-5.03); Red Cell Distribution Width 16.6 % (13.2-15.2); White Blood Count 14.4 K/mm3 (4.5-11.0)
[2016-08-20 07:06] LABS: BUN/Creatinine Ratio 3.89; Calcium 8.7 mg/dL (8.4-10.2); Chloride 97.5 mmol/L (98-107); Potassium 4.9 mmol/L (3.6-5.0)
[2016-08-20] MEDS: BROVANA NEBU IH SCH ×2 (07:25→20:28)
[2016-08-20] MEDS: PULMICORT IH SCH ×2 (07:25→20:28)
[2016-08-20] MEDS: APRESOLINE PO SCH ×3 (08:13→22:50)
--- NOTE | 2016-08-20 09:45 | Consultation ---
CONSULTING PHYSICIAN: Kaelyn Don MD REASON FOR CONSULTATION: Hypertensive emergency, altered mental status. CHIEF COMPLAINT AND HISTORY OF PRESENT ILLNESS: The patient is a 70-year-old black male with past medical history significant amongst other things for a diagnosis of hypertension and end-stage renal disease, on dialysis, who from all intents and purposes seems to have missed at least one dialysis session, was brought in by ambulance due to altered mental status yesterday. He was found sitting outside , not following commands. He was able to ambulate without assistance at the scene. No focal deficits. Sugars were a little low at 64. He was brought into the Emergency Room. In the Emergency Room, amongst other things, he was found to have elevated blood pressures requiring IV Cardene administration and also had some abnormal labs. He was obviously initially brought in as a stroke patient, but the imaging was negative. When I stopped by to see him today, he was lying in bed. He was lethargic. He was answering questions appropriately, little slow to answer higher level questions as to, for example, where he was but he did understand he was in the hospital. He denied any prior nausea, vomiting or overt aspiration. Denied any fevers or chills. With regards to his tobacco use/abuse history, he has a 20+ pack year tobacco smoking history. According to the daughter who came earlier, he smokes all the time. That really is as much of the history of this presentation as I have. PAST MEDICAL HISTORY: Again, significant for a diagnosis of end-stage renal disease on dialysis, hypertension and reportedly more alert than at baseline. No history of cerebrovascular accident. PAST SURGICAL HISTORY: Unknown. MEDICATIONS: He was on at the time I stopped by to see him, according to the medication administration record included the following: Tylenol 650 mg p.o. q.4 hours p.r.n. mild pain, p.r.n. Dulcolax, Lovenox 30 mg subq daily, nicardipine drip that had been going at 5 mg an hour, Zofran 4 mg q.8 hours p.r.n. nausea and vomiting. ALLERGIES: No known drug allergies. DIET: Well-built gentleman, acute weight loss or gain history is unknown. FAMILY AND SOCIAL HISTORY: I believe in the community, he has at least order that was here earlier according to the nurses. He has a 20+ pack year tobacco smoking history. Alcohol or illicit drug use or abuse history is unknown. REVIEW OF SYSTEMS: Difficult to obtain secondary to the patient's medical and mental condition. Since he has been here, he has had no gross hematochezia or melena, no gross hematuria. He denies any chest pain. He has had no nausea and vomiting. No seizure activity. No gross or streaky hemoptysis. He denies palpitations. Review of systems is otherwise unobtainable or as in the body of the history above. PHYSICAL EXAMINATION: VITAL SIGNS: He was afebrile, temperature 98.6 Fahrenheit with a pulse of 104, respiratory rate of 17, blood pressure 206/90, oxygen sats 97%, inspired oxygen concentration was not recorded. Right now, he is on 40% Ventimask. HEAD, EYES, EARS, NOSE AND THROAT: Pupils are equal, round, about 4 mm, reactive to light. Extraocular muscle movements appeared intact. He had significant oropharyngeal secretions without overt drooling. Grossly, there were no palpable lymph nodes in the supraclavicular or submandibular lymph node chains. No gross jugular venous distention. LUNGS: Auscultation of both lung lay reveal bilateral rales, occasional faint expiratory wheezing. HEART: Heart sounds 1 and 2 are heard at the time of my evaluation, regular rate and rhythm. ABDOMEN: Soft, full, bowel sounds are positive, did not appear tender. EXTREMITIES: Without overt digital clubbing, cyanosis, or pedal edema. NEUROLOGIC: The exam was grossly nonfocal. He was lethargic. LABORATORY DATA: From my review are as follows: White cell count 5400, hemoglobin 11.3, hematocrit 35.2 and platelet count 251. At presentation, INR was 1.09. Arterial blood gas showed a pH of 7.33, pCO2 of 44, pO2 of 36 that was on room air. Serum sodium was 143, potassium 6.1, chloride 102, bicarbonate was 14, BUN was 68, creatinine was 14.4 and glucose was 82. Lactic acid level was within normal limits. Phosphorus and magnesium were elevated. Liver function tests essentially within normal limits. Troponin was at 0.148, is up to 0.188. Potassium is down to 3.8 at this point. RADIOGRAPHIC STUDIES: I am attempting to open the image. CT of the head was done at presentation. I have reviewed the radiologist's interpretation and essentially as described as chronic small vessel white matter ischemic changes. No acute infarct. A chest x-ray was done, the film is coming up right now, but was read as no focal infiltrates, no acute process. ASSESSMENT AND PLAN: We have an elderly gentleman with history of tobacco abuse, likely chronic obstructive pulmonary disease, missed dialysis sessions, in with what appears to be [id number]-og-[id number] encephalopathy. From a respiratory standpoint, we will keep him on supplemental oxygen therapy, keep sats greater than or equal to about 93-94%. I will begin him on long and short acting bronchodilators as well as inhaled corticosteroids for likely chronic obstructive pulmonary disease treatment. I want to hold on systemic steroids at this point. P.r.n. bilevel positive airway pressure ventilation therapy will be offered and I will repeat the arterial blood gas at this point and make changes as necessary. From a cardiovascular standpoint, I note the elevated cardiac enzymes, cardiology evaluation, I believe, has been ordered and Cardiology consult will be at the behest of the attending physician. A 2D echocardiogram has been ordered. We will follow that. Blood pressure is much better now. He will be transitioned to p.o. oral medications. From a GI and nutritional standpoint, he will need to have a swallow evaluation prior to beginning to feeding him anything, I note the oropharyngeal secretions and without overt pooling, so we will get the swallow evaluation. He is going to be placed on GI prophylaxis and aspiration precautions will be maintained in the short term. From a renal standpoint, electrolytes have been corrected. He has had dialysis at least one episode. I will be repeating the chest x-ray today to see if there has been any major change as the pulmonary exam certainly is much different from what was reported earlier. Hemodialysis prescription will be at the behest of the wood sawyer. I will defer to Nephrology otherwise. From a central nervous system standpoint, the neuro imaging was negative. The exam was grossly nonfocal. He may well have a toxic/metabolic encephalopathy. We will follow him clinically. From an infectious disease standpoint, the altered mental status certainly could be due to occult sepsis; however, lactic acid in the normal limits is encouraging. I will also order a CRP level. Hold on antibiotics at this time. Tylenol, aspirin, and alcohol levels were unremarkable at presentation. From a general and hospital healthcare maintenance standpoint, he is going to be on gastrointestinal and deep venous thrombosis prophylaxis. Flu and pneumonia vaccination will be per protocol. Thank you very much for the consult, Dr. Don. We will follow along and make further recommendations as picture progresses/becomes clearer. At this point, I spent about 35-40 minutes of critical care time without overlap and excluding any procedural time that may be necessary. He is critically ill. All life-sustaining interventions including vasopressor at risk for further deterioration including . JOB# [id number] JAGUAR/RUBEN
[2016-08-20] MEDS ORDERED: NON-FORMULARY (Furosemide [Lasix Tab] 80 MG) PO SCH (10:00)
[2016-08-20] MEDS ORDERED: NON-FORMULARY (Losartan [Cozaar] 100 MG) PO SCH (10:00)
--- NOTE | 2016-08-20 10:04 | Progress Note ---
Assessment and Plan - Patient Problems (1) Hypertensive emergency Current Visit: Yes Status: Acute Plan to address problem: BP improved, will monitor on current meds. UF target decreased to 1.5kg as tolerated (2) End-stage renal disease (ESRD) Current Visit: Yes Status: Acute Plan to address problem: continue HD MWF schedule. (3) Hyperkalemia, diminished renal excretion Current Visit: Yes Status: Acute Plan to address problem: resolved with HD, cont low K renal diet. (4) Acute metabolic encephalopathy Current Visit: Yes Status: Acute Plan to address problem: pt with h/o underlying psychiatric disorder. uremic encephalopathy after missing HD might have contributed, improving with HD. Subjective Date of service: 08/20/16 Interval history: pt seen and examined during HD, more responsive, conversing, however still confused, not oriented to place/time. BP 114/64 P 91, target UF 1.5kg as tolerated. Objective - Vital Signs Vital signs: Vital Signs - 12hr 08/19/16 08/19/16 08/20/16 22:42 23:59 07:00 Temperature 99.3 F 97.8 F Pulse Rate 85 Pulse Rate [ 85 89 Right Radial] Respiratory 18 17 Rate Blood Pressure 164/72 Blood Pressure 152/72 148/70 [Right Arm] O2 Sat by Pulse 100 98 Oximetry 08/20/16 08/20/16 08/20/16 08:13 09:25 09:30 Temperature 98.5 F Pulse Rate 76 93 H 94 H Pulse Rate [ Right Radial] Respiratory 18 Rate Blood Pressure 158/72 129/70 141/74 Blood Pressure [Right Arm] O2 Sat by Pulse Oximetry 08/20/16 09:45 Temperature Pulse Rate 91 H Pulse Rate [ Right Radial] Respiratory Rate Blood Pressure 114/64 Blood Pressure [Right Arm] O2 Sat by Pulse Oximetry - General Appearance General appearance: appears stated age, fatigue EENT: ATNC, PERRL, mucous membranes moist Neck: no JVD Respiratory: Present: Clear to Ascultation Cardiology: regular, S1S2 Gastrointestinal: normal, normoactive bowel sounds Integumentary: no rash, other (no edema ) Neurologic: confused, disoriented, CN 3-12 intact Psychiatric: mood/affect appropriate, cooperative - Lab 08/20/16 06:18 08/20/16 06:18 Most recent lab results Calcium 8.7 mg/dL (8.4-10.2) 08/20/16 06:18 Phosphorus 7.20 mg/dL (2.5-4.5) H 08/18/16 21:17 Magnesium 2.60 mg/dL (1.7-2.3) H 08/18/16 21:17
[2016-08-20] MEDS ORDERED: PROVENTIL IH PRN (10:39)
[2016-08-20] MEDS ORDERED: NACL 0.9 (PRIMING MACHINE ONLY DIALYSIS) MC ONE (10:52)
--- NOTE | 2016-08-20 10:58 | Progress Note ---
Assessment and Plan Assessment and plan: Acute metabolic encephalopathy. Improved. Patient answers questions intermittently and follows commands Patient will continue with hemodialysis per nephrology. Patient may have some underlying baseline psychiatric disorder per history. Psychiatric evaluation pending. Attempt to contact family regarding psych history and ? EtOH use. ESRD. Continue hemodialysis per nephrology. Accelerated hypertension. Wean Cardene drip and start by mouth medications. Hyperkalemia. Resolved with hemodialysis. Disposition. Nurse reports to me that there may be some family dynamics with regards to appropriate missing persons investigator/power of manager business. 3 different sisters have requested that they individually are the only persons to discuss care and make decisions irrespective of each other. I discussed the family dynamic with case management. History Interval history: No new issues overnight. Nurse reports to me that there may be some family dynamics with regards to appropriate missing persons investigator/power of manager business. 3 different sisters have requested that they individually are the only persons to discuss care and make decisions irrespective of each other. Hospitalist Physical - Constitutional Vitals: Temp Pulse Resp BP Pulse Ox 98.5 F 91 H 18 114/64 98 08/20/16 09:25 08/20/16 09:45 08/20/16 09:25 08/20/16 09:45 08/20/16 07:25 General appearance: Present: no acute distress, well-nourished - EENT Eyes: Present: PERRL, EOM intact ENT: hearing intact, clear oral mucosa, dentition normal - Neck Neck: Present: supple, normal ROM - Respiratory Respiratory effort: normal Respiratory: bilateral: CTA - Cardiovascular Rhythm: regular Heart Sounds: Present: S1 & S2. Absent: gallop, rub - Extremities Extremities: no ischemia, No edema, Full ROM - Abdominal General gastrointestinal: soft, non-tender, non-distended, normal bowel sounds - Integumentary Integumentary: Present: clear, warm, dry - Neurologic Neurologic: CNII-XII intact, moves all extremities Results - Labs CBC & Chem 7: 08/20/16 06:18 08/20/16 06:18 Labs: Laboratory Last Values WBC 14.4 K/mm3 (4.5-11.0) H 08/20/16 06:18 RBC 3.26 M/mm3 (3.65-5.03) L 08/20/16 06:18 Hgb 10.1 gm/dl (11.8-15.2) L 08/20/16 06:18 Hct 31.5 % (35.5-45.6) L 08/20/16 06:18 MCV 97 fl (84-94) H 08/20/16 06:18 MCH 31 pg (28-32) 08/20/16 06:18 MCHC 32 % (32-34) 08/20/16 06:18 RDW 16.6 % (13.2-15.2) H 08/20/16 06:18 Plt Count 187 K/mm3 (140-440) 08/20/16 06:18 Lymph % (Auto) 6.8 % (13.4-35.0) L 08/20/16 06:18 [place] % (Auto) 8.2 % (0.0-7.3) H 08/20/16 06:18 Eos % (Auto) 0.3 % (0.0-4.3) 08/20/16 06:18 Baso % (Auto) 0.3 % (0.0-1.8) 08/20/16 06:18 Lymph # 1.0 K/mm3 (1.2-5.4) L 08/20/16 06:18 [place] # 1.2 K/mm3 (0.0-0.8) H 08/20/16 06:18 Eos # 0.0 K/mm3 (0.0-0.4) 08/20/16 06:18 Baso # 0.0 K/mm3 (0.0-0.1) 08/20/16 06:18 Seg Neutrophils % 84.4 % (40.0-70.0) H 08/20/16 06:18 Seg Neutrophils # 12.1 K/mm3 (1.8-7.7) H 08/20/16 06:18 PT 14.0 Sec. (12.2-14.9) 08/18/16 21:17 INR 1.09 (0.87-1.13) 08/18/16 21:17 APTT 37.1 Sec. (24.2-36.6) H 08/18/16 21:17 Thrombin Time 16.1 Sec. (15.1-19.6) 08/18/16 21:17 POC ABG pH 7.378 (7.35-7.45) 08/19/16 18:34 POC ABG pCO2 47.3 (35-45) H 08/19/16 18:34 POC ABG pO2 114 (80-105) H 08/19/16 18:34 POC ABG HCO3 27.8 08/19/16 18:34 POC ABG Total CO2 29 08/19/16 18:34 POC ABG O2 Sat 98 08/19/16 18:34 POC ABG Base Excess 3 08/19/16 18:34 FiO2 28 % 08/19/16 18:34 Sodium 141 mmol/L (137-145) 08/20/16 06:18 Potassium 4.9 mmol/L (3.6-5.0) D 08/20/16 06:18 Chloride 97.5 mmol/L (98-107) L 08/20/16 06:18 Carbon Dioxide 24 mmol/L (22-30) 08/20/16 06:18 Anion Gap 24 mmol/L 08/20/16 06:18 BUN 44 mg/dL (9-20) H 08/20/16 06:18 Creatinine 11.3 mg/dL (0.8-1.5) H 08/20/16 06:18 Estimated GFR 5 ml/min 08/20/16 06:18 BUN/Creatinine Ratio 3.89 % 08/20/16 06:18 Glucose 82 mg/dL (75-100) 08/20/16 06:18 POC Glucose 101 (70-105) 08/20/16 05:16 Lactic Acid 0.90 mmol/L (0.7-2.0) 08/19/16 13:58 Calcium 8.7 mg/dL (8.4-10.2) 08/20/16 06:18 Phosphorus 7.20 mg/dL (2.5-4.5) H 08/18/16 21:17 Magnesium 2.60 mg/dL (1.7-2.3) H 08/18/16 21:17 Total Bilirubin 0.70 mg/dL (0.1-1.2) 08/18/16 21:17 Direct Bilirubin 0.2 mg/dL (0-0.2) 08/18/16 21:17 Indirect Bilirubin 0.5 mg/dL 08/18/16 21:17 AST 10 units/L (5-40) 08/18/16 21:17 ALT 13 units/L (7-56) 08/18/16 21:17 Alkaline Phosphatase 91 units/L (35-129) 08/18/16 21:17 Ammonia 31.0 umol/L (25-60) 08/19/16 15:41 Total Creatine Kinase 165 units/L (55-170) 08/19/16 08:05 CK-MB (CK-2) 5.9 ng/mL (0.0-4.0) H 08/19/16 08:05 CK-MB (CK-2) Rel Index 3.5 (0-4) 08/19/16 08:05 Troponin T 0.188 ng/mL (0.00-0.029) H* D 08/19/16 08:05 C-Reactive Protein 0.60 mg/dL (0.00-1.30) 08/19/16 08:05 NT-Pro-B Natriuret Pep 50141 pg/mL (0-900) H 08/18/16 21:17 Total Protein 7.7 g/dL (6.3-8.2) 08/18/16 21:17 Albumin 4.1 g/dL (3.9-5) 08/18/16 21:17 Albumin/Globulin Ratio 1.1 % 08/18/16 21:17 Triglycerides 92 mg/dL (2-149) 08/18/16 20:25 Cholesterol 154 mg/dL (50-199) 08/18/16 20:25 LDL Cholesterol Direct 78 mg/dL (50-130) 08/18/16 20:25 HDL Cholesterol 58 mg/dL (40-59) 08/18/16 20:25 Cholesterol/HDL Ratio 2.65 % 08/18/16 20:25 TSH 1.210 mlU/mL (0.270-4.200) 08/19/16 15:41 Salicylates < 0.3 mg/dL (2.8-20.0) L 08/18/16 21:17 Acetaminophen < 15.0 ug/mL (10.0-30.0) 08/18/16 21:17 Plasma/Serum Alcohol < 0.01 gm% (0-0.07) 08/18/16 21:17
[2016-08-20] MEDS: RENVELA PO SCH ×3 (12:17→18:26)
[2016-08-20] MEDS: LASIX PO SCH (12:17)
[2016-08-20] MEDS: CARDURA PO SCH (15:05)
[2016-08-20] MEDS: COZAAR PO SCH (15:05)
[2016-08-20] MEDS: LOVENOX SUB-Q SCH (15:06)
[2016-08-20] MEDS: SODIUM BICARBONATE PO SCH ×2 (15:06→22:52)
--- NOTE | 2016-08-20 15:47 | Consultation ---
History of Present Illness - Reason for Consult Consult date: 08/20/16 Reason for consult: psychiatric evaluation for altered mental status/ psychiatric history - Chief Complaint Chief complaint: According to his daughters "He wasn't taking his medications" 69 year old black male with a history of ESRD on dialysis and hypertension seen on the medical floor for psychiatric evaluation. He was admitted to the hospital following an incident when he stopped responding appropriately with a neighbor and was clammy/sweating. He was treated for accelerated hypertension and hyperkalemia. He was initially talking at the interview onset, but after about 3 minutes, he closed his eyes and did not speak after. He was confused about the date and was intermittently waking in response to tactile sensation on his feet. This was not consistent though. His left arm was flaccid but not his left leg. His family reports he is normally ambulatory and cares for himself. He lives with his sister. He admitted that he stopped taking his medications. He has a history of bipolar disorder. The family reports he has manic episodes every 3-4 months and will be hyperreligious. When he is not manic , he usually talkative and sociable according to his family. Medications and Allergies Allergies Allergy/AdvReac Type Severity Reaction Status Date / Time No Known Allergies Allergy Verified 08/19/16 10:17 Home Medications Medication Instructions Recorded Confirmed Last Taken Type Doxazosin [Cardura] 2 mg PO QDAY 02/25/16 08/18/16 Unknown History Furosemide [Lasix TAB] 80 mg PO QDAY 02/25/16 08/18/16 Unknown History Losartan [Cozaar] 100 mg PO QDAY 02/25/16 08/18/16 Unknown History QUEtiapine [SEROquel] 200 mg PO QHS 02/25/16 08/18/16 Unknown History Sevelamer Carbonate [Renvela] 1,600 mg PO TIDWM 02/25/16 08/20/16 Unknown History Sodium Bicarbonate 325 mg PO BID 02/25/16 08/18/16 Unknown History hydrALAZINE [Apresoline] 50 mg PO Q8HR 02/25/16 08/18/16 Unknown History Active Meds: Active Medications Acetaminophen (Tylenol) 650 mg PO Q4H PRN PRN Reason: Pain MILD(1-3)/Fever >100.5/HOWARD Albuterol (Proventil) 2.5 mg IH Q4HRT PRN PRN Reason: Shortness Of Breath Arformoterol Tartrate (Brovana Nebu) 15 mcg IH Q12HRT [facility] Bisacodyl (Dulcolax) 10 mg [place] QDAY PRN PRN Reason: [place] [facility] [place]udesonide (Pulmicort) 0.5 mg IH Q12HRT [facility] Doxazosin Mesylate (Cardura) 2 mg PO QDAY [facility] Last Admin: 08/20/16 15:05 Dose: 2 mg Enoxaparin Sodium (Lovenox) 30 mg SUB-Q QDAY [facility] Last Admin: 08/20/16 15:06 Dose: 30 mg Famotidine (Pepcid) 10 mg IV BID [facility] Furosemide (Lasix) 80 mg PO DAILY@0600 [facility] Last Admin: 08/20/16 12:17 Dose: Not Given Hydralazine HCl (Apresoline) 50 mg PO Q8HR [facility] Last Admin: 08/20/16 15:06 Dose: 50 mg Sodium Chloride (Nacl 0.9%) 100 mls @ 999 mls/hr IV LIO PRN PRN Reason: Hypotension Losartan Potassium (Cozaar) 100 mg PO QDAY [facility] Last Admin: 08/20/16 15:05 Dose: 100 mg Ondansetron HCl (Zofran) 4 mg IV Q8H PRN PRN Reason: N/V unrelieved by Reglan Last Admin: 08/19/16 00:50 Dose: 4 mg Quetiapine Fumarate (Seroquel) 200 mg PO QHS [facility] Last Admin: 08/19/16 22:42 Dose: Not Given Sevelamer Carbonate (Renvela) 2,400 mg PO TIDWM [facility] Last Admin: 08/20/16 14:39 Dose: Not Given Sodium Bicarbonate (Sodium Bicarbonate) 325 mg PO BID [facility] Last Admin: 08/20/16 15:06 Dose: 325 mg Past psychiatric history - Past Medical History Past Medical History: ESRD, hypertension - past Psychiatric treatment and history Psych: Bipolar psychiatric treatment history: takes seroquel for bipolar - Social History Social history: lives with family (denies drug/alcohol use) Mental Status Exam - Vital signs Last Vital Signs Temp 98.5 F 08/20/16 13:10 Pulse 102 H 08/20/16 14:38 Resp 18 08/20/16 14:38 BP 150/71 08/20/16 15:06 Pulse Ox 98 08/20/16 07:25 - Exam Orientation: person Affect: other (indifferent) Mood: congruent with affect Thought content: other (no SI, no HI) Thought Process: Intact (limited in scope) Perceptions: none (denies) Speech: minimal response Motor activity: lethargic Level of consciousness: confused Memory: Recent Impaired Appetite: decreased Interaction: other (initially cooperative) Results Result Diagrams: 08/20/16 06:18 08/20/16 06:18 Abnormal lab results 08/19/16 08/20/16 08/20/16 Range/Units 18:34 06:18 06:18 WBC 14.4 H (4.5-11.0) K/mm3 RBC 3.26 L (3.65-5.03) M/mm3 Hgb 10.1 L (11.8-15.2) gm/dl Hct 31.5 L (35.5-45.6) % MCV 97 H (84-94) fl RDW 16.6 H (13.2-15.2) % Lymph % (Auto) 6.8 L (13.4-35.0) % [place] % (Auto) 8.2 H (0.0-7.3) % Lymph # 1.0 L (1.2-5.4) K/mm3 [place] # 1.2 H (0.0-0.8) K/mm3 Seg Neutrophils % 84.4 H (40.0-70.0) % Seg Neutrophils # 12.1 H (1.8-7.7) K/mm3 POC ABG pCO2 47.3 H (35-45) POC ABG pO2 114 H (80-105) Chloride 97.5 L (98-107) mmol/L BUN 44 H (9-20) mg/dL Creatinine 11.3 H (0.8-1.5) mg/dL All other labs normal. Assessment and Plan Assessment and plan: Impression: altered mental status/delirium acute metabolic encephalopathy: possibly related to recent electrolyte abnormalities or other medical condition If the etiology is related to the hyperkalemia, the delirium will improve over time. Bipolar disorder by history: medication, such as seroquel, could worsen the delirium and is recommended to be avoided at this time Family concerned about needing to get out of bed. Delirium precautions were discussed with the family: - continue medical management - Please attempt to place patient with 1:1 sitter to verbally redirect instead of using restraints if at all possible - Frequently reorient patient and involve her in their care (simple explanations of procedures, tests, medications). - Lights on and shades open during daytime hours. - Write date and goals of care in a visible place. - Try to avoid unnecessary interruptions to sleep during nighttime hours. - Obtain glasses, hearing aids from home if patient uses these at baseline. - Avoid medications that may exacerbate delirium (especially narcotics, benzodiazepines, barbiturates, ambien, lunesta, and medications with excessive anticholinergic properties) -We will continue to reassess the patient daily and determine further treatment
[2016-08-20] MEDS: PROTONIX IV SCH (18:27)
--- NOTE | 2016-08-20 19:59 | Progress Note ---
Assessment and Plan Patient resting on on 2 litres O2. No acute respiratory distress. O2 satuaration 98% on 2 litres O2. - Patient Problems (1) Shortness of breath Current Visit: Yes Status: Acute Plan to address problem: Improved. O2 saturation 98% on 2 litres O2. Brovanna/Budesonide aerosol treatments q 12 hours. Albuterol inhalor 2 puffs po q 6 hours prn for shortness of breath. (2) Acute metabolic encephalopathy Current Visit: Yes Status: Acute Plan to address problem: Management as per primary care. (3) End-stage renal disease (ESRD) Current Visit: Yes Status: Acute Plan to address problem: Management as per nephrology. (4) Hypertensive emergency Current Visit: Yes Status: Acute Plan to address problem: Management as per primary care. (5) Pleural effusion Current Visit: Yes Status: Acute Plan to address problem: Small pleural effusion. Not significant enough for thoracentesis. Subjective Date of service: 08/20/16 Interval history: Patient resting on on 2 litres O2. No acute respiratory distress. O2 satuaration 98% on 2 litres O2. Objective Vital Signs - 12hr 08/20/16 08/20/16 08/20/16 08:13 09:25 09:30 Temperature 98.5 F Pulse Rate 76 93 H 94 H Pulse Rate [ Right Radial] Respiratory 18 Rate Blood Pressure 158/72 129/70 141/74 Blood Pressure [Right Arm] 08/20/16 08/20/16 08/20/16 09:45 10:00 10:15 Temperature Pulse Rate 91 H 94 H 92 H Pulse Rate [ Right Radial] Respiratory Rate Blood Pressure 114/64 125/70 118/70 Blood Pressure [Right Arm] 08/20/16 08/20/16 08/20/16 10:30 10:45 11:00 Temperature Pulse Rate 93 H 98 H 100 H Pulse Rate [ Right Radial] Respiratory Rate Blood Pressure 139/61 119/69 138/70 Blood Pressure [Right Arm] 08/20/16 08/20/16 08/20/16 11:15 11:30 11:45 Temperature Pulse Rate 92 H 107 H 107 H Pulse Rate [ Right Radial] Respiratory Rate Blood Pressure 100/52 116/57 119/61 Blood Pressure [Right Arm] 08/20/16 08/20/16 08/20/16 12:00 12:15 12:30 Temperature Pulse Rate 105 H 82 102 H Pulse Rate [ Right Radial] Respiratory Rate Blood Pressure 121/53 132/66 116/56 Blood Pressure [Right Arm] 08/20/16 08/20/16 08/20/16 12:45 12:55 13:10 Temperature 98.5 F Pulse Rate 79 78 78 Pulse Rate [ Right Radial] Respiratory 18 Rate Blood Pressure 128/68 120/66 128/68 Blood Pressure [Right Arm] 08/20/16 08/20/16 08/20/16 14:38 15:05 15:06 Temperature Pulse Rate Pulse Rate [ 102 H Right Radial] Respiratory 18 Rate Blood Pressure 150/71 150/71 Blood Pressure 150/71 [Right Arm] 08/20/16 16:00 Temperature 98.3 F Pulse Rate Pulse Rate [ 101 H Right Radial] Respiratory 17 Rate Blood Pressure Blood Pressure 128/66 [Right Arm] Constitutional: no acute distress, asleep Eyes: non-icteric ENT: oropharynx moist Neck: supple, no lymphadenopathy Ascultation: Bilateral: diminished breath sounds Cardiovascular: regular rate and rhythm Gastrointestinal: normoactive bowel sounds, soft, non-tender Integumentary: normal Extremities: no cyanosis, no edema Neurologic: unable to assess Psychiatric: other (Patient sleeping at this time.) CBC and BMP: 08/20/16 06:18 08/20/16 06:18 ABG, PT/INR, D-dimer: ABG POC ABG pH 7.378 (7.35-7.45) 08/19/16 18:34 POC ABG pCO2 47.3 (35-45) H 08/19/16 18:34 POC ABG pO2 114 (80-105) H 08/19/16 18:34 POC ABG HCO3 27.8 08/19/16 18:34 POC ABG Total CO2 29 08/19/16 18:34 POC ABG O2 Sat 98 08/19/16 18:34 PT/INR, D-dimer PT 14.0 Sec. (12.2-14.9) 08/18/16 21:17 INR 1.09 (0.87-1.13) 08/18/16 21:17 Abnormal lab findings: Abnormal Labs 08/18/16 08/19/16 08/19/16 23:31 08:05 08:05 WBC RBC 3.60 L Hgb 11.2 L Hct 34.8 L MCV 97 H RDW 16.5 H Lymph % (Auto) [place] % (Auto) 11.6 H Lymph # 1.0 L [place] # Seg Neutrophils % 71.8 H Seg Neutrophils # POC ABG pCO2 POC ABG pO2 Chloride 97.3 L BUN 31 H Creatinine 8.8 H Glucose 102 H CK-MB (CK-2) 4.8 H CK-MB (CK-2) Rel Index 5.7 H Troponin T 0.148 H* 08/19/16 08/19/16 08/20/16 08:05 18:34 06:18 WBC 14.4 H RBC 3.26 L Hgb 10.1 L Hct 31.5 L MCV 97 H RDW 16.6 H Lymph % (Auto) 6.8 L [place] % (Auto) 8.2 H Lymph # 1.0 L [place] # 1.2 H Seg Neutrophils % 84.4 H Seg Neutrophils # 12.1 H POC ABG pCO2 47.3 H POC ABG pO2 114 H Chloride BUN Creatinine Glucose CK-MB (CK-2) 5.9 H CK-MB (CK-2) Rel Index Troponin T 0.188 H* D 08/20/16 06:18 WBC RBC Hgb Hct MCV RDW Lymph % (Auto) [place] % (Auto) Lymph # [place] # Seg Neutrophils % Seg Neutrophils # POC ABG pCO2 POC ABG pO2 Chloride 97.5 L BUN 44 H Creatinine 11.3 H Glucose CK-MB (CK-2) CK-MB (CK-2) Rel Index Troponin T
--- NOTE | 2016-08-20 20:06 | Magnetic Resonance Report ---
FINAL REPORT EXAM: MR BRAIN WO CON HISTORY: AMS TECHNIQUE: MRI brain without contrast PRIORS: Correlated with prior CT head Aug 18 2016 FINDINGS: There are patchy areas of increased T2 signal present within the supratentorial white matter. No evidence for brain edema pattern or mass effect. Ventricles and sulci are within normal limits. No evidence for acute intra-axial or extra-axial hemorrhage. No evidence for acute restriction on diffusion-weighted study. Brainstem and posterior fossa structures are unremarkable. IMPRESSION: Findings consistent with chronic small vessel ischemic change no acute abnormality identified.
[2016-08-20] MEDS: PEPCID IV SCH (22:52)
[2016-08-21] MEDS: LASIX PO SCH (07:39)
[2016-08-21] MEDS: APRESOLINE PO SCH ×3 (07:39→21:45)
[2016-08-21 07:41] LABS: Basophils % (Auto) 0.5 % (0.0-1.8); Eosinophils % (Auto) 0.6 % (0.0-4.3); Hematocrit 31.9 % (35.5-45.6); Hemoglobin 10.2 gm/dl (11.8-15.2); Mean Corpuscular HGB Conc 32 % (32-34); Mean Corpuscular Hemoglobin 31 pg (28-32); Mean Corpuscular Volume 98 fl (84-94); Platelet Count 156 K/mm3 (140-440); Red Blood Count 3.27 M/mm3 (3.65-5.03); Red Cell Distribution Width 16.2 % (13.2-15.2); White Blood Count 12.7 K/mm3 (4.5-11.0)
[2016-08-21 07:47] LABS: BUN/Creatinine Ratio 3.6; Calcium 9.2 mg/dL (8.4-10.2); Potassium 4.3 mmol/L (3.6-5.0)
[2016-08-21] MEDS: PULMICORT IH SCH ×2 (07:57→20:01)
[2016-08-21] MEDS: BROVANA NEBU IH SCH ×2 (07:58→20:01)
--- NOTE | 2016-08-21 10:13 | Consultation ---
History of Present Illness Consult date: 08/21/16 Requesting physician: NAGI THORNTON Reason for Consult: AMS Chief complaint: pt without complaints directly. History of present illness: 70-year-old man with a history of hypertension, end-stage renal disease on dialysis old brought to the emergency room for altered mental status on 08/18. It was reported that the patient missed dialysis. Old records indicate that the patient has a psychiatric illness Patient is unable to give a history or review of system Past History Past Medical History: ESRD, hypertension Past Surgical History: No surgical history Social history: lives with family (denies drug/alcohol use) Family history: no significant family history Medications and Allergies Allergies Allergy/AdvReac Type Severity Reaction Status Date / Time No Known Allergies Allergy Verified 08/19/16 10:17 Home Medications Medication Instructions Recorded Confirmed Last Taken Type Doxazosin [Cardura] 2 mg PO QDAY 02/25/16 08/18/16 Unknown History Furosemide [Lasix TAB] 80 mg PO QDAY 02/25/16 08/18/16 Unknown History Losartan [Cozaar] 100 mg PO QDAY 02/25/16 08/18/16 Unknown History QUEtiapine [SEROquel] 200 mg PO QHS 02/25/16 08/18/16 Unknown History Sevelamer Carbonate [Renvela] 1,600 mg PO TIDWM 02/25/16 08/20/16 Unknown History Sodium Bicarbonate 325 mg PO BID 02/25/16 08/18/16 Unknown History hydrALAZINE [Apresoline] 50 mg PO Q8HR 02/25/16 08/18/16 Unknown History Active Meds: Active Medications Acetaminophen (Tylenol) 650 mg PO Q4H PRN PRN Reason: Pain MILD(1-3)/Fever >100.5/HOWARD Albuterol (Proventil) 2.5 mg IH Q4HRT PRN PRN Reason: Shortness Of Breath Arformoterol Tartrate (Brovana Nebu) 15 mcg IH Q12HRT [facility] Last Admin: 08/21/16 07:58 Dose: 15 mcg Bisacodyl (Dulcolax) 10 mg [place] QDAY PRN PRN Reason: Constipation unrelieved by MOM Budesonide (Pulmicort) 0.5 mg IH Q12HRT [facility] Last Admin: 06/01/17 07:57 Dose: 0.5 mg Doxazosin Mesylate (Cardura) 2 mg PO QDAY [facility] Last Admin: 08/20/16 15:05 Dose: 2 mg Enoxaparin Sodium (Lovenox) 30 mg SUB-Q QDAY [facility] Last Admin: 08/20/16 15:06 Dose: 30 mg Famotidine (Pepcid) 10 mg IV BID [facility] Last Admin: 08/20/16 22:52 Dose: 10 mg Furosemide (Lasix) 80 mg PO DAILY@0600 [facility] Last Admin: 08/21/16 07:39 Dose: Not Given Hydralazine HCl (Apresoline) 50 mg PO Q8HR [facility] Last Admin: 08/21/16 07:39 Dose: Not Given Sodium Chloride (Nacl 0.9%) 100 mls @ 999 mls/hr IV LIO PRN PRN Reason: Hypotension Losartan Potassium (Cozaar) 100 mg PO QDAY [facility] Last Admin: 08/20/16 15:05 Dose: 100 mg Ondansetron HCl (Zofran) 4 mg IV Q8H PRN PRN Reason: N/V unrelieved by Ubaldo Last Admin: 08/19/16 00:50 Dose: 4 mg Sevelamer Carbonate (Renvela) 2,400 mg PO TIDWM [facility] Last Admin: 08/20/16 18:26 Dose: Not Given Sodium Bicarbonate (Sodium Bicarbonate) 325 mg PO BID [facility] Last Admin: 08/20/16 22:52 Dose: 325 mg Review of Systems ROS unobtainable: due to mental status Neurological: no head injury, no weakness, no parathesias, no numbness, no tingling, no headaches, no convulsions, no aphasia, no change in speech, no change in mentation, no confusion, no memory loss, no gait dysfunction, no motor disturbance, no sensory deficit, no loss of vision Physical Examination - Vital Signs Vital Signs: Vital Signs Pulse Resp 104 H 11 L 08/18/16 20:57 08/18/16 20:57 - Constitutional General appearance: chronically ill - EENT EENT: Present: ATNC, PERRL, mucous membranes moist, hearing intact, vision intact - Respiratory Respiratory: Present: chest non-tender, normal breath sounds, no respiratory distress - Cardiovascular Cardiovascular: Present: regular rate Extremities: Present: no peripheral edema bilatateraly, no clubbing, cyanosis, no inflammation, no ischemia or petechiae - Gastrointestinal Gastrointestinal: Present: normoactive bowel sounds, soft, non-distended - Integumentary Integumentary: Present: normal - Neurologic Cranial nerve examination: PERRL, EOMI, VFF, V1/V2/V3 grossly intact, face symmetric, tongue midline, intact, Intact Vestibulo-ocular r, intact corneal reflex, normal palatal elevation Speech examination: intact, other (oriented to self, June 2016, age 80 but follows all commands, mildly impaired concentration) Sensorimotor examination: intact Detailed motor examination: grossly full strength in Motor examination - right side: 5/5: biceps, triceps, wrist flexion, wrist extension, pit hand, hip flexors, knee extensors, dorsiflexion, toe extension (EHL) , plantarflexion Motor examination - left side: 5/5: biceps, triceps, wrist flexion, wrist extension, pit hand, hip flexors, knee extensors, dorsiflexion, toe extension (EHL) , plantarflexion Detailed sensory examination: intact, light touch, temperature Reflex and gait examination: intact Reflexes: 0: ankle, 2+: bicep, knee, tricep - Musculoskeletal Musculoskeletal: Present: no fluid collection, no pain, normal range of motion - Psychiatric Psychiatric: Present: mood/affect appropriate, cooperative Results - Laboratory Findings CBC and BMP: 08/21/16 06:53 08/21/16 06:53 Abnormal Lab Findings: Abnormal Labs 08/18/16 08/19/16 08/19/16 23:31 08:05 08:05 WBC RBC 3.60 L Hgb 11.2 L Hct 34.8 L MCV 97 H RDW 16.5 H Lymph % (Auto) [place] % (Auto) 11.6 H Lymph # 1.0 L [place] # Seg Neutrophils % 71.8 H Seg Neutrophils # POC ABG pCO2 POC ABG pO2 Chloride 97.3 L BUN 31 H Creatinine 8.8 H Glucose 102 H POC Glucose CK-MB (CK-2) 4.8 H CK-MB (CK-2) Rel Index 5.7 H Troponin T 0.148 H* 08/19/16 08/19/16 08/20/16 08:05 18:34 06:18 WBC 14.4 H RBC 3.26 L Hgb 10.1 L Hct 31.5 L MCV 97 H RDW 16.6 H Lymph % (Auto) 6.8 L [place] % (Auto) 8.2 H Lymph # 1.0 L [place] # 1.2 H Seg Neutrophils % 84.4 H Seg Neutrophils # 12.1 H POC ABG pCO2 47.3 H POC ABG pO2 114 H Chloride BUN Creatinine Glucose POC Glucose CK-MB (CK-2) 5.9 H CK-MB (CK-2) Rel Index Troponin T 0.188 H* D 08/20/16 08/20/16 08/20/16 06:18 15:54 21:19 WBC RBC Hgb Hct MCV RDW Lymph % (Auto) [place] % (Auto) Lymph # [place] # Seg Neutrophils % Seg Neutrophils # POC ABG pCO2 POC ABG pO2 Chloride 97.5 L BUN 44 H Creatinine 11.3 H Glucose POC Glucose 112 H 127 H CK-MB (CK-2) CK-MB (CK-2) Rel Index Troponin T 08/21/16 08/21/16 08/21/16 06:00 06:53 06:53 WBC 12.7 H RBC 3.27 L Hgb 10.2 L Hct 31.9 L MCV 98 H RDW 16.2 H Lymph % (Auto) 7.7 L [place] % (Auto) 10.6 H Lymph # 1.0 L [place] # 1.4 H Seg Neutrophils % 80.6 H Seg Neutrophils # 10.3 H POC ABG pCO2 POC ABG pO2 Chloride BUN 31 H Creatinine 8.6 H Glucose 101 H POC Glucose 116 H CK-MB (CK-2) CK-MB (CK-2) Rel Index Troponin T Assessment and Plan 70-year-old man with a history of hypertension, end-stage renal disease on dialysis, psych disease brought to the emergency room for altered mental status 08/18. It was reported that the patient missed dialysis. On exam pt w/ poor concentration, paucity of speech, disorientation but able to follows midline/ peripheral commands w/ grossly intact motor-sensory exam, consistent with toxic metabolic infectious derangement as the etiology for neurologic decompensation. There is no clear new focality on neurologic examination to suggest acute [employer] process e.g. Stroke, Seizure or Meningitis. CTH/MRI Brain nonacute. TSH/NH4 normal.. Recommendations: 1. Cont Infectious work up/medical management for UTI, PNA, cellulitis, bacteremia, etc. 2. Avoid hyponatremia, hypo/hyper-calcemia, hypo/hyperglycemia, acidosis, hypoxia/hypoxemia, hypercarbia/hypercapnia 3. Avoid institution of any psychoactive medications (e.g. antihistamines, anticholinergics, BZD, hypnotics, opiates) as able unless low doses of low potency antipsychotic needed for behavioral issues complicating medical care 4. Thiamine/Folate/CIWA protocol accordingly for any hx obtained to suggest EtOH withdrawal 5. Cont home meds-there is no neurologic indication to change 6. We can revisit as needed.
[2016-08-21] MEDS: RENVELA PO SCH ×3 (10:28→17:16)
[2016-08-21] MEDS: CARDURA PO SCH (10:33)
[2016-08-21] MEDS: COZAAR PO SCH (10:34)
[2016-08-21] MEDS: SODIUM BICARBONATE PO SCH ×2 (10:35→21:36)
[2016-08-21] MEDS: LOVENOX SUB-Q SCH (10:35)
[2016-08-21] MEDS: PEPCID IV SCH ×2 (10:35→21:37)
--- NOTE | 2016-08-21 11:21 | Progress Note ---
Assessment and Plan - Patient Problems (1) Acute hypoxemic respiratory failure Current Visit: Yes Status: Acute Plan to address problem: - resolved - continue HD/UF for volume control (2) Acute encephalopathy Current Visit: Yes Status: Acute Plan to address problem: - improved - neuroimaging without acute process - neurology evaluation ongoing (3) End-stage renal disease (ESRD) Current Visit: Yes Status: Acute Plan to address problem: - continue HD/UF per nephrology prescription (4) Hypertensive emergency Current Visit: Yes Status: Acute Plan to address problem: - resolved - on losaartan and hydralazine - follow clinically (5) Pleural effusion Current Visit: Yes Status: Acute Plan to address problem: - no indication for thoracentesis - small volume - continue HD/UF for volume control Subjective Date of service: 08/21/16 Principal diagnosis: Hypertensive Emergency; Acute Hypoxemic Resp Failure; ESRD on Dialysis Interval history: Seen and examined at bedside; 24 hour events reviewed; nursing and respiratory care staff consulted; no adverse overnight events reported to me; resting peacefully in bed; smiling; denies acute chest pains or SOB; no emesis or overt aspiration Objective Vital Signs - 12hr 08/21/16 08/21/16 08/21/16 07:35 07:39 08:00 Temperature 98 F Pulse Rate 72 Pulse Rate [ 92 H Anterior Bilateral Throughout] Pulse Rate [ 92 H Right Radial] Respiratory 16 Rate Respiratory 18 Rate [Anterior Bilateral Throughout] Blood Pressure 90/54 Blood Pressure 108/58 [Right Arm] O2 Sat by Pulse 97 Oximetry 08/21/16 08/21/16 10:00 10:33 Temperature Pulse Rate Pulse Rate [ Anterior Bilateral Throughout] Pulse Rate [ Right Radial] Respiratory Rate Respiratory Rate [Anterior Bilateral Throughout] Blood Pressure 94/54 Blood Pressure [Right Arm] O2 Sat by Pulse 97 Oximetry Constitutional: no acute distress, alert, asleep Eyes: non-icteric ENT: oropharynx moist Neck: supple, no lymphadenopathy Ascultation: Bilateral: diminished breath sounds, rhonchi (scant; clear with coughing) Cardiovascular: regular rate and rhythm Gastrointestinal: normoactive bowel sounds, soft, non-tender, non-distended Integumentary: normal Extremities: no cyanosis, no edema, pulses normal, no ischemia or petechiae Neurologic: non-focal exam, pupils equal and round, motor strength normal and, other (mild cognitive deficit) Psychiatric: mood appropriate, affect normal CBC and BMP: 08/21/16 06:53 08/21/16 06:53 ABG, PT/INR, D-dimer: ABG POC ABG pH 7.378 (7.35-7.45) 08/19/16 18:34 POC ABG pCO2 47.3 (35-45) H 08/19/16 18:34 POC ABG pO2 114 (80-105) H 08/19/16 18:34 POC ABG HCO3 27.8 08/19/16 18:34 POC ABG Total CO2 29 08/19/16 18:34 POC ABG O2 Sat 98 08/19/16 18:34 PT/INR, D-dimer PT 14.0 Sec. (12.2-14.9) 08/18/16 21:17 INR 1.09 (0.87-1.13) 08/18/16 21:17 Abnormal lab findings: Abnormal Labs 08/18/16 08/19/16 08/19/16 23:31 08:05 08:05 WBC RBC 3.60 L Hgb 11.2 L Hct 34.8 L MCV 97 H RDW 16.5 H Lymph % (Auto) [place] % (Auto) 11.6 H Lymph # 1.0 L [place] # Seg Neutrophils % 71.8 H Seg Neutrophils # POC ABG pCO2 POC ABG pO2 Chloride 97.3 L BUN 31 H Creatinine 8.8 H Glucose 102 H POC Glucose CK-MB (CK-2) 4.8 H CK-MB (CK-2) Rel Index 5.7 H Troponin T 0.148 H* 08/19/16 08/19/16 08/20/16 08:05 18:34 06:18 WBC 14.4 H RBC 3.26 L Hgb 10.1 L Hct 31.5 L MCV 97 H RDW 16.6 H Lymph % (Auto) 6.8 L [place] % (Auto) 8.2 H Lymph # 1.0 L [place] # 1.2 H Seg Neutrophils % 84.4 H Seg Neutrophils # 12.1 H POC ABG pCO2 47.3 H POC ABG pO2 114 H Chloride BUN Creatinine Glucose POC Glucose CK-MB (CK-2) 5.9 H CK-MB (CK-2) Rel Index Troponin T 0.188 H* D 08/20/16 08/20/16 08/20/16 06:18 15:54 21:19 WBC RBC Hgb Hct MCV RDW Lymph % (Auto) [place] % (Auto) Lymph # [place] # Seg Neutrophils % Seg Neutrophils # POC ABG pCO2 POC ABG pO2 Chloride 97.5 L BUN 44 H Creatinine 11.3 H Glucose POC Glucose 112 H 127 H CK-MB (CK-2) CK-MB (CK-2) Rel Index Troponin T 08/21/16 08/21/16 08/21/16 06:00 06:53 06:53 WBC 12.7 H RBC 3.27 L Hgb 10.2 L Hct 31.9 L MCV 98 H RDW 16.2 H Lymph % (Auto) 7.7 L [place] % (Auto) 10.6 H Lymph # 1.0 L [place] # 1.4 H Seg Neutrophils % 80.6 H Seg Neutrophils # 10.3 H POC ABG pCO2 POC ABG pO2 Chloride BUN 31 H Creatinine 8.6 H Glucose 101 H POC Glucose 116 H CK-MB (CK-2) CK-MB (CK-2) Rel Index Troponin T
--- NOTE | 2016-08-21 13:03 | Progress Note ---
Assessment and Plan Assessment and plan: Patient presents altered mental status 70-year-old male neurologic workup negative thus far infectious workup also negative. Total Time Spent with Patient (Minutes): 29 - Patient Problems (1) Acute metabolic encephalopathy Current Visit: Yes Status: Acute Plan to address problem: Acute metabolic encephalopathy has resolved. Etiology uremia and most likely hypertensive encephalopathy. This along with underlying chronic vascular dementia versus minimal cognitive defect. This was explained to daughter in detail patient back at baseline we'll obtain physical therapy consult to see if patient will require longterm facility versus back home. (2) End-stage renal disease (ESRD) Current Visit: Yes Status: Acute Plan to address problem: Continue hemodialysis as nephrology consult. (3) Hyperkalemia, diminished renal excretion Current Visit: Yes Status: Acute Plan to address problem: Upper kalemia secondary to decreased excretion renal excretion. Has corrected with hemodialysis. (4) Hypertensive emergency Current Visit: Yes Status: Acute Plan to address problem: Hypertensive emergency upon presentation patient blood pressure doing much better since adding back hydralazine 50 mg by mouth 3 times a day. Plus the losartan 100 mg by mouth daily. (5) Schizophrenia Current Visit: Yes Status: Acute Qualifiers: Schizophrenia type: S Plan to address problem: At present patient does not appear to be manic does not appear to have depression is not acting out. We'll continue to hold Seroquel. History Interval history: Patient alert today able to discern the difference is between his 2 daughters. Patient states he wants to go home. Pace is alert oriented at this particular time. I did speak to daughter Nadya and she stated that she wanted patient to be able to walk up the stairs because his room was upstairs. We'll need to obtain physical therapy consult while patient can. And get up and out of bed unsure whether not he can navigate stairs. Does not appear that way to me. Arrangements most likely been needed for patient to live downstairs. Hospitalist Physical - Constitutional Vitals: Temp Pulse Resp BP Pulse Ox 98 F 92 H 16 94/54 97 08/21/16 08:00 08/21/16 08:00 08/21/16 08:00 08/21/16 10:33 08/21/16 10:00 General appearance: Present: no acute distress, well-nourished - EENT Eyes: Present: PERRL, EOM intact ENT: hearing intact, clear oral mucosa, poor dentition - Neck Neck: Present: supple, normal ROM - Respiratory Respiratory: bilateral: CTA - Cardiovascular Rhythm: regular Heart Sounds: Present: S1 & S2 - Extremities Extremities: no ischemia, pulses intact, pulses symmetrical - Abdominal General gastrointestinal: soft, non-tender, non-distended - Integumentary Integumentary: Present: clear, warm, dry - Psychiatric Psychiatric: appropriate mood/affect, cooperative, other (unable to appreciate patient's judgment I suspect this is bipolar schizophrenia versus vascular dementia patient does have poor cognition.) - Neurologic Neurologic: CNII-XII intact Results - Labs CBC & Chem 7: 08/21/16 06:53 08/21/16 06:53 Labs: Laboratory Last Values WBC 12.7 K/mm3 (4.5-11.0) H 08/21/16 06:53 RBC 3.27 M/mm3 (3.65-5.03) L 08/21/16 06:53 Hgb 10.2 gm/dl (11.8-15.2) L 08/21/16 06:53 Hct 31.9 % (35.5-45.6) L 08/21/16 06:53 MCV 98 fl (84-94) H 08/21/16 06:53 MCH 31 pg (28-32) 08/21/16 06:53 MCHC 32 % (32-34) 08/21/16 06:53 RDW 16.2 % (13.2-15.2) H 08/21/16 06:53 Plt Count 156 K/mm3 (140-440) 08/21/16 06:53 Lymph % (Auto) 7.7 % (13.4-35.0) L 08/21/16 06:53 [place] % (Auto) 10.6 % (0.0-7.3) H 08/21/16 06:53 Eos % (Auto) 0.6 % (0.0-4.3) 08/21/16 06:53 Baso % (Auto) 0.5 % (0.0-1.8) 08/21/16 06:53 Lymph # 1.0 K/mm3 (1.2-5.4) L 08/21/16 06:53 [place] # 1.4 K/mm3 (0.0-0.8) H 08/21/16 06:53 Eos # 0.1 K/mm3 (0.0-0.4) 08/21/16 06:53 Baso # 0.1 K/mm3 (0.0-0.1) 08/21/16 06:53 Seg Neutrophils % 80.6 % (40.0-70.0) H 08/21/16 06:53 Seg Neutrophils # 10.3 K/mm3 (1.8-7.7) H 08/21/16 06:53 PT 14.0 Sec. (12.2-14.9) 08/18/16 21:17 INR 1.09 (0.87-1.13) 08/18/16 21:17 APTT 37.1 Sec. (24.2-36.6) H 08/18/16 21:17 Thrombin Time 16.1 Sec. (15.1-19.6) 08/18/16 21:17 POC ABG pH 7.378 (7.35-7.45) 08/19/16 18:34 POC ABG pCO2 47.3 (35-45) H 08/19/16 18:34 POC ABG pO2 114 (80-105) H 08/19/16 18:34 POC ABG HCO3 27.8 08/19/16 18:34 POC ABG Total CO2 29 08/19/16 18:34 POC ABG O2 Sat 98 08/19/16 18:34 POC ABG Base Excess 3 08/19/16 18:34 FiO2 28 % 08/19/16 18:34 Sodium 143 mmol/L (137-145) 08/21/16 06:53 Potassium 4.3 mmol/L (3.6-5.0) 08/21/16 06:53 Chloride 98.0 mmol/L (98-107) 08/21/16 06:53 Carbon Dioxide 28 mmol/L (22-30) 08/21/16 06:53 Anion Gap 21 mmol/L 08/21/16 06:53 BUN 31 mg/dL (9-20) H 08/21/16 06:53 Creatinine 8.6 mg/dL (0.8-1.5) H 08/21/16 06:53 Estimated GFR 7 ml/min 08/21/16 06:53 BUN/Creatinine Ratio 3.60 % 08/21/16 06:53 Glucose 101 mg/dL (75-100) H 08/21/16 06:53 POC Glucose 181 (70-105) H 08/21/16 11:14 Lactic Acid 0.90 mmol/L (0.7-2.0) 08/19/16 13:58 Calcium 9.2 mg/dL (8.4-10.2) 08/21/16 06:53 Phosphorus 7.20 mg/dL (2.5-4.5) H 08/18/16 21:17 Magnesium 2.60 mg/dL (1.7-2.3) H 08/18/16 21:17 Total Bilirubin 0.70 mg/dL (0.1-1.2) 08/18/16 21:17 Direct Bilirubin 0.2 mg/dL (0-0.2) 08/18/16 21:17 Indirect Bilirubin 0.5 mg/dL 08/18/16 21:17 AST 10 units/L (5-40) 08/18/16 21:17 ALT 13 units/L (7-56) 08/18/16 21:17 Alkaline Phosphatase 91 units/L (35-129) 08/18/16 21:17 Ammonia 31.0 umol/L (25-60) 08/19/16 15:41 Total Creatine Kinase 165 units/L (55-170) 08/19/16 08:05 CK-MB (CK-2) 5.9 ng/mL (0.0-4.0) H 08/19/16 08:05 CK-MB (CK-2) Rel Index 3.5 (0-4) 08/19/16 08:05 Troponin T 0.188 ng/mL (0.00-0.029) H* D 08/19/16 08:05 C-Reactive Protein 0.60 mg/dL (0.00-1.30) 08/19/16 08:05 NT-Pro-B Natriuret Pep 03129 pg/mL (0-900) H 08/18/16 21:17 Total Protein 7.7 g/dL (6.3-8.2) 08/18/16 21:17 Albumin 4.1 g/dL (3.9-5) 08/18/16 21:17 Albumin/Globulin Ratio 1.1 % 08/18/16 21:17 Triglycerides 92 mg/dL (2-149) 08/18/16 20:25 Cholesterol 154 mg/dL (50-199) 08/18/16 20:25 LDL Cholesterol Direct 78 mg/dL (50-130) 08/18/16 20:25 HDL Cholesterol 58 mg/dL (40-59) 08/18/16 20:25 Cholesterol/HDL Ratio 2.65 % 08/18/16 20:25 TSH 1.210 mlU/mL (0.270-4.200) 08/19/16 15:41 Salicylates < 0.3 mg/dL (2.8-20.0) L 08/18/16 21:17 Acetaminophen < 15.0 ug/mL (10.0-30.0) 08/18/16 21:17 Plasma/Serum Alcohol < 0.01 gm% (0-0.07) 08/18/16 21:17 - Imaging and Cardiology Chest x-ray: image reviewed CT scan - chest: image reviewed MRI - head: report reviewed
--- NOTE | 2016-08-21 13:34 | Progress Note ---
Assessment and Plan - Patient Problems (1) Hypertensive emergency Current Visit: Yes Status: Acute Plan to address problem: BP improved, will monitor on current meds. (2) End-stage renal disease (ESRD) Current Visit: Yes Status: Acute Plan to address problem: continue HD MWF schedule. (3) Hyperkalemia, diminished renal excretion Current Visit: Yes Status: Acute Plan to address problem: resolved with HD, cont low K renal diet. (4) Acute metabolic encephalopathy Current Visit: Yes Status: Acute Plan to address problem: likely due to hypertensive emergency and uremic encephalopathy, now improving with BP control/HD. Subjective Date of service: 08/21/16 Interval history: pt awake, alert, more oriented, ambulating in room, denies acute complaints. Objective - Vital Signs Vital signs: Vital Signs - 12hr 08/21/16 08/21/16 08/21/16 07:35 07:39 08:00 Temperature 98 F Pulse Rate 72 Pulse Rate [ 92 H Anterior Bilateral Throughout] Pulse Rate [ 92 H Right Radial] Respiratory 16 Rate Respiratory 18 Rate [Anterior Bilateral Throughout] Blood Pressure 90/54 Blood Pressure 108/58 [Right Arm] O2 Sat by Pulse 97 Oximetry 08/21/16 08/21/16 10:00 10:33 Temperature Pulse Rate Pulse Rate [ Anterior Bilateral Throughout] Pulse Rate [ Right Radial] Respiratory Rate Respiratory Rate [Anterior Bilateral Throughout] Blood Pressure 94/54 Blood Pressure [Right Arm] O2 Sat by Pulse 97 Oximetry - General Appearance General appearance: well-developed, well-nourished, appears stated age EENT: ATNC, PERRL, mucous membranes moist Neck: no JVD Respiratory: Present: Clear to Ascultation Cardiology: regular, S1S2 Gastrointestinal: normal, normoactive bowel sounds Integumentary: no rash, other (no edema ) Neurologic: no focal deficit, alert and oriented x3, strength 5/5, CN 3-12 intact Psychiatric: mood/affect appropriate, cooperative - Lab 08/21/16 06:53 08/21/16 06:53 Most recent lab results Calcium 9.2 mg/dL (8.4-10.2) 08/21/16 06:53 Phosphorus 7.20 mg/dL (2.5-4.5) H 08/18/16 21:17 Magnesium 2.60 mg/dL (1.7-2.3) H 08/18/16 21:17
[2016-08-21] MEDS: TYLENOL PO PRN (23:10)
[2016-08-22] MEDS: LASIX PO SCH (06:00)
[2016-08-22] MEDS: APRESOLINE PO SCH ×2 (06:30→16:48)
[2016-08-22 06:53] LABS: Basophils % (Auto) 0.7 % (0.0-1.8); Eosinophils % (Auto) 4.1 % (0.0-4.3); Hematocrit 31.3 % (35.5-45.6); Mean Corpuscular HGB Conc 32 % (32-34); Mean Corpuscular Hemoglobin 31 pg (28-32); Mean Corpuscular Volume 98 fl (84-94); Platelet Count 161 K/mm3 (140-440); Red Blood Count 3.21 M/mm3 (3.65-5.03); Red Cell Distribution Width 15.9 % (13.2-15.2)
[2016-08-22 07:09] LABS: BUN/Creatinine Ratio 4.12; Chloride 96.6 mmol/L (98-107); Potassium 4.1 mmol/L (3.6-5.0)
--- NOTE | 2016-08-22 08:46 | Progress Note ---
Assessment and Plan - Patient Problems (1) Hypertensive emergency Current Visit: Yes Status: Acute Plan to address problem: BP improved, will monitor on current meds. (2) End-stage renal disease (ESRD) Current Visit: Yes Status: Acute Plan to address problem: continue HD MWF schedule. stable for discharge from renal stand point after HD. can resume outpatient HD at [facility] (3) Hyperkalemia, diminished renal excretion Current Visit: Yes Status: Acute Plan to address problem: resolved with HD, cont low K renal diet. (4) Acute metabolic encephalopathy Current Visit: Yes Status: Acute Plan to address problem: likely due to hypertensive emergency and uremic encephalopathy, now improving with BP control/HD. Subjective Date of service: 08/22/16 Principal diagnosis: Hypertensive Emergency; Acute Hypoxemic Resp Failure; ESRD on Dialysis Interval history: pt awake, alert, oriented, in no acute distress Objective - Vital Signs Vital signs: Vital Signs - 12hr 08/21/16 08/21/16 08/22/16 21:45 22:00 06:30 Pulse Rate 90 94 H Pulse Rate [ 90 Right Radial] Respiratory 16 Rate Blood Pressure 136/68 133/60 - General Appearance General appearance: well-developed, well-nourished, appears stated age EENT: ATNC, PERRL, mucous membranes moist Neck: no JVD Respiratory: Present: Clear to Ascultation Cardiology: regular, S1S2 Gastrointestinal: normal, normoactive bowel sounds Integumentary: no rash, other (no edema ) Neurologic: no focal deficit, alert and oriented x3, strength 5/5, CN 3-12 intact Psychiatric: mood/affect appropriate, cooperative - Lab 08/22/16 06:00 08/22/16 06:00 Most recent lab results Calcium 9.0 mg/dL (8.4-10.2) 08/22/16 06:00 Phosphorus 7.20 mg/dL (2.5-4.5) H 08/18/16 21:17 Magnesium 2.60 mg/dL (1.7-2.3) H 08/18/16 21:17
[2016-08-22] MEDS: BROVANA NEBU IH SCH ×2 (08:55→19:17)
[2016-08-22] MEDS: PULMICORT IH SCH ×2 (08:55→19:17)
[2016-08-22] MEDS: RENVELA PO SCH ×3 (08:59→17:17)
[2016-08-22] MEDS: COZAAR PO SCH (10:02)
[2016-08-22] MEDS: CARDURA PO SCH (10:02)
[2016-08-22] MEDS: SODIUM BICARBONATE PO SCH (10:03)
[2016-08-22] MEDS: LOVENOX SUB-Q SCH (10:03)
[2016-08-22] MEDS: PEPCID IV SCH (10:03)
--- NOTE | 2016-08-22 11:24 | Progress Note ---
Assessment and Plan - Patient Problems (1) Acute hypoxemic respiratory failure Current Visit: Yes Status: Acute Plan to address problem: - resolved - continue HD/UF for volume control (M/W/F) (2) Acute encephalopathy Current Visit: Yes Status: Acute Plan to address problem: - improved - neuroimaging without acute process - neurology evaluation ongoing (3) End-stage renal disease (ESRD) Current Visit: Yes Status: Acute Plan to address problem: - continue HD/UF per nephrology prescription - Mon/Thu/Thu (4) Hypertensive emergency Current Visit: Yes Status: Acute Plan to address problem: - resolved - on losaartan and hydralazine - follow clinically (5) Pleural effusion Current Visit: Yes Status: Acute Plan to address problem: - no indication for thoracentesis - small volume - continue HD/UF for volume control Subjective Date of service: 08/22/16 Principal diagnosis: Hypertensive Emergency; Acute Hypoxemic Resp Failure; ESRD on Dialysis Interval history: Seen and examined at bedside; 24 hour events reviewed; nursing and respiratory care staff consulted; no adverse overnight events reported to me; resting peacefully; denies acute chest pains or increased SOB; No emesis or overt aspiration Objective Vital Signs - 12hr 08/22/16 08/22/16 08/22/16 06:30 08:00 08:55 Temperature 98 F Pulse Rate 94 H Pulse Rate [ 91 H Anterior Bilateral Throughout] Pulse Rate [ 88 Right Radial] Respiratory 18 Rate Respiratory 16 Rate [Anterior Bilateral Throughout] Blood Pressure 133/60 Blood Pressure 130/68 [Right Arm] O2 Sat by Pulse 97 Oximetry 08/22/16 08/22/16 08/22/16 08:58 09:05 10:00 Temperature 98.1 F Pulse Rate 79 Pulse Rate [ 91 H Anterior Bilateral Throughout] Pulse Rate [ Right Radial] Respiratory 18 Rate Respiratory 16 Rate [Anterior Bilateral Throughout] Blood Pressure 114/57 Blood Pressure [Right Arm] O2 Sat by Pulse 95 Oximetry 08/22/16 08/22/16 08/22/16 10:15 10:30 10:45 Temperature Pulse Rate 86 84 81 Pulse Rate [ Anterior Bilateral Throughout] Pulse Rate [ Right Radial] Respiratory Rate Respiratory Rate [Anterior Bilateral Throughout] Blood Pressure 115/58 115/58 113/57 Blood Pressure [Right Arm] O2 Sat by Pulse Oximetry Constitutional: no acute distress, alert Eyes: non-icteric ENT: oropharynx moist Neck: supple, no lymphadenopathy Effort: normal Ascultation: Bilateral: clear, diminished breath sounds Cardiovascular: regular rate and rhythm Gastrointestinal: normoactive bowel sounds, soft, non-tender, non-distended Integumentary: normal Extremities: no cyanosis, no edema, pulses normal, no ischemia or petechiae Neurologic: non-focal exam, pupils equal and round, motor strength normal and, other (mild cognitice deficit) Psychiatric: mood appropriate, affect normal CBC and BMP: 08/22/16 06:00 08/22/16 06:00 ABG, PT/INR, D-dimer: ABG POC ABG pH 7.378 (7.35-7.45) 08/19/16 18:34 POC ABG pCO2 47.3 (35-45) H 08/19/16 18:34 POC ABG pO2 114 (80-105) H 08/19/16 18:34 POC ABG HCO3 27.8 08/19/16 18:34 POC ABG Total CO2 29 08/19/16 18:34 POC ABG O2 Sat 98 08/19/16 18:34 PT/INR, D-dimer PT 14.0 Sec. (12.2-14.9) 08/18/16 21:17 INR 1.09 (0.87-1.13) 08/18/16 21:17 Abnormal lab findings: Abnormal Labs 08/18/16 08/19/16 08/19/16 23:31 08:05 08:05 WBC RBC 3.60 L Hgb 11.2 L Hct 34.8 L MCV 97 H RDW 16.5 H Lymph % (Auto) Perry % (Auto) 11.6 H Lymph # 1.0 L Perry # Seg Neutrophils % 71.8 H Seg Neutrophils # POC ABG pCO2 POC ABG pO2 Chloride 97.3 L BUN 31 H Creatinine 8.8 H Glucose 102 H POC Glucose CK-MB (CK-2) 4.8 H CK-MB (CK-2) Rel Index 5.7 H Troponin T 0.148 H* 08/19/16 08/19/16 08/20/16 08:05 18:34 06:18 WBC 14.4 H RBC 3.26 L Hgb 10.1 L Hct 31.5 L MCV 97 H RDW 16.6 H Lymph % (Auto) 6.8 L Perry % (Auto) 8.2 H Lymph # 1.0 L Perry # 1.2 H Seg Neutrophils % 84.4 H Seg Neutrophils # 12.1 H POC ABG pCO2 47.3 H POC ABG pO2 114 H Chloride BUN Creatinine Glucose POC Glucose CK-MB (CK-2) 5.9 H CK-MB (CK-2) Rel Index Troponin T 0.188 H* D 08/20/16 08/20/16 08/20/16 06:18 15:54 21:19 WBC RBC Hgb Hct MCV RDW Lymph % (Auto) Perry % (Auto) Lymph # Perry # Seg Neutrophils % Seg Neutrophils # POC ABG pCO2 POC ABG pO2 Chloride 97.5 L BUN 44 H Creatinine 11.3 H Glucose POC Glucose 112 H 127 H CK-MB (CK-2) CK-MB (CK-2) Rel Index Troponin T 08/21/16 08/21/16 08/21/16 06:00 06:53 06:53 WBC 12.7 H RBC 3.27 L Hgb 10.2 L Hct 31.9 L MCV 98 H RDW 16.2 H Lymph % (Auto) 7.7 L Perry % (Auto) 10.6 H Lymph # 1.0 L Perry # 1.4 H Seg Neutrophils % 80.6 H Seg Neutrophils # 10.3 H POC ABG pCO2 POC ABG pO2 Chloride BUN 31 H Creatinine 8.6 H Glucose 101 H POC Glucose 116 H CK-MB (CK-2) CK-MB (CK-2) Rel Index Troponin T 08/21/16 08/21/16 08/21/16 11:14 16:38 22:25 WBC RBC Hgb Hct MCV RDW Lymph % (Auto) Perry % (Auto) Lymph # Perry # Seg Neutrophils % Seg Neutrophils # POC ABG pCO2 POC ABG pO2 Chloride BUN Creatinine Glucose POC Glucose 181 H 125 H 142 H CK-MB (CK-2) CK-MB (CK-2) Rel Index Troponin T 08/22/16 08/22/16 06:00 06:00 WBC RBC 3.21 L Hgb 10.0 L Hct 31.3 L MCV 98 H RDW 15.9 H Lymph % (Auto) Perry % (Auto) 12.0 H Lymph # 1.1 L Perry # 1.0 H Seg Neutrophils % Seg Neutrophils # POC ABG pCO2 POC ABG pO2 Chloride 96.6 L BUN 45 H Creatinine 10.9 H Glucose POC Glucose CK-MB (CK-2) CK-MB (CK-2) Rel Index Troponin T
[2016-08-22] MEDS ORDERED: NACL 0.9 (PRIMING MACHINE ONLY DIALYSIS) MC ONE (11:54)
[2016-08-22] MEDS: TYLENOL PO PRN ×2 (12:52→17:23)
[2016-08-22 17:40] VITALS: BP 114/62
--- NOTE | 2016-08-22 18:43 | Discharge Summary ---
Providers - Providers Date of Admission: 08/18/16 22:46 Date of discharge: 08/22/16 Attending physician: BK BALDWIN 08/19/16 10:07 Consult to Physician [CONS] Urgent Consulting Provider: ECTOR RASCON Reason For Exam: critical cqare management Place consult to:: cell phone text Notified:: yes Phone number called:: [phone] Was contact made?: Yes Time called:: 10:06 08/19/16 14:01 Speech Therapy Evaluation and Treat [CONS] Routine Reason For Exam: increased oral secretions 08/19/16 14:16 Consult to Mental Health [CONS] Routine Reason For Exam: AMS Place consult to:: krystal/JASE Notified:: JASE Phone number called:: [phone] Was contact made?: Yes If yes, spoke with:: JASE Time called:: 16:40 Comment:: FERMIN NOTIFIED 08/20/16 18:34 Consult to Physician [CONS] Urgent Consulting Provider: MIRANDA CHAMBERS Reason For Exam: AMS Place consult to:: Neurology Notified:: Message left on answering [employer] Phone number called:: [phone] 08/21/16 13:04 Physical Therapy Evaluation and Treat [CONS] Urgent Comment: Reason For Exam: evaluate home vs snf ambulation Primary care physician: [employer] Hospitalization Condition: Good Pertinent studies: MRI showed chronic small vessel disease and ischemia nothing acute. Echocardiogram ejection fraction 65%. Hospital course: Should presented with altered mental status was thought that maybe he had a CVA. Patient at workup for CVA which was negative. Lethargy and confusion corrected after he had dialysis. Patient's creatinine was 14 on admission and blood pressure was 200/90 on admission. It was thought the patient's encephalopathy was secondary to uremia and hypertensive encephalopathy. Has now resolved with correction of blood pressure using losartan and amlodipine. Patient stable to discharge back to nursing . Patient is without any lethargy or confusion alert oriented able to tell who his daughters are able to joke and laugh. At baseline. Disposition: DISCHARGED TO HOME OR SELFCARE - Discharge Diagnoses (1) Acute metabolic encephalopathy Status: Resolved (2) End-stage renal disease (ESRD) Status: Chronic (3) Hyperkalemia, diminished renal excretion Status: Acute (4) Hypertensive emergency Status: Resolved (5) Schizophrenia Status: Chronic Qualifiers: Schizophrenia type: disorganized schizophrenia Qualified Code(s): F20.1 - Disorganized schizophrenia Core Measure Documentation - Palliative Care Palliative Care/ Comfort Measures: Not Applicable - Core Measures Any of the following diagnoses?: none Exam - Constitutional Vitals: Temp Pulse Resp BP Pulse Ox 98.2 F 86 18 113/58 95 08/22/16 16:00 08/22/16 16:48 08/22/16 16:00 08/22/16 16:48 08/22/16 08:58 General appearance: Present: no acute distress, well-nourished - EENT Eyes: Present: PERRL ENT: hearing intact, clear oral mucosa, dentition normal, poor dentition - Neck Neck: Present: supple, normal ROM - Respiratory Respiratory effort: normal Respiratory: bilateral: CTA - Cardiovascular Rhythm: regular Heart Sounds: Present: S1 & S2 - Extremities Extremities: no ischemia, pulses intact, pulses symmetrical, No edema (were respiratory effort) Extremity abnormal: tenderness Peripheral Pulses: within normal limits - Abdominal General gastrointestinal: Present: soft, non-tender, non-distended, normal bowel sounds. Absent: hypoactive bowel sounds, absent bowel sounds, hepatomegaly Male genitourinary: Present: deferred - Rectal Rectal Exam: deferred - Integumentary Integumentary: Present: clear, warm, dry. Absent: jaundice, rash, clammy - Musculoskeletal Musculoskeletal: generalized weakness, other (unable to get up and walk to the bathroom without difficulty adequate get up and go test.) - Psychiatric Psychiatric: other (cognitive impairment hypersensitivity consistent with schizoaffective disorder.) - Neurologic Neurologic: CNII-XII intact, no focal deficits Plan Activity: no restrictions, fall precautions Weight Bearing Status: Full Weight Bearing Diet: low fat Follow up with: PRIMARY CAREMD [Primary Care Provider] - 3-5 Days Prescriptions: Arformoterol Nebu [Brovana Nebu] 15 mcg IH Q12HRT #1 ml Doxazosin [Cardura] 2 mg PO QDAY #30 tablet Furosemide [Lasix TAB] 80 mg PO DAILY@0600 #20 tablet Losartan [Cozaar] 100 mg PO QDAY #30 tablet
== END 2016-08-22 19:39 | disposition home health service (06) | DRG 682 ==
LOC: ED 20:13 → CC1 22:46 → 3A 08-19 16:24
PROVIDERS: ADMIT Internal Medicine; ATTEND Internal Medicine
PROC: 4A033R1 Measurement of Arterial Saturation, Peripheral, Percutaneous Approach (ICD-10-PCS; principal; 2016-08-18)
PROC: 5A1D60Z (ICD-10-PCS; 2016-08-19)
DX: I12.0 Hypertensive chronic kidney disease with stage 5 chronic kidney disease or end stage renal disease (principal); G93.41 Metabolic encephalopathy; J96.01 Acute respiratory failure with hypoxia; N18.6 End stage renal disease; I16.1 Hypertensive emergency; J90 Pleural effusion, not elsewhere classified; E87.5 Hyperkalemia; E78.00 Pure hypercholesterolemia, unspecified; E83.41 Hypermagnesemia; E83.39 Other disorders of phosphorus metabolism; F31.9 Bipolar disorder, unspecified; Z99.2 Dependence on renal dialysis; Z91.15 Patient's noncompliance with renal dialysis; Z79.899 Other long term (current) drug therapy
CPT/HCPCS: 36415; 36600; 70450; 70551; 71010; 80048; 80061; 80074; 80320; 82140; 82550; 82553; 82803; 82962; 83735; 83880; 84100; 84443; 84484; 85025; 85610; 85670; 85730; 86140; 93005; 93010; 93306; 94640; 94760; 96365; 96375; 99406; C9113; G0480; G8996-GN; G8997-GN; G8998-GN; J0360; J0610; J1650; J1815; J2405; J7030; J7050

== ENCOUNTER 2017-03-17 13:20 | Inpatient (IN) | payer MEDICARE ==
--- NOTE | 2017-03-17 14:03 | Emergency Department Report ---
ED General Adult HPI - General Chief complaint: Neuro Symptoms/Deficit Stated complaint: POSS STROKE Time Seen by Provider: 03/17/17 14:00 Source: patient Mode of arrival: Ambulatory Limitations: No Limitations - History of Present Illness Initial comments: 71-year-old male end-stage renal disease missed dialysis today has had left- sided weakness over the weekend apparently the family just brought him in today for evaluation but says he's been having problems using his left side since last weekend he is here :, with shortness of breath left-sided weakness missed dialysis. Saturation was in the 70s when EMS arrived, now in 90's on patient gives no further history history is from the family. There was no fever. No chest pain no abdominal pain he is here for evaluation of missing dialysis and a left-sided weakness he is awake occasionally for follow commands eyes are open but is not getting history -: unknown - Related Data Home Medications Medication Instructions Recorded Confirmed Last Taken Doxazosin [Cardura] 2 mg PO QDAY 02/25/16 08/18/16 Unknown Furosemide [Lasix TAB] 80 mg PO QDAY 02/25/16 08/18/16 Unknown Sevelamer Carbonate [Renvela] 1,600 mg PO TIDWM 02/25/16 08/20/16 Unknown Sodium Bicarbonate 325 mg PO BID 02/25/16 08/18/16 Unknown hydrALAZINE [Apresoline] 50 mg PO Q8HR 02/25/16 08/18/16 Unknown Previous Rx's Medication Instructions Recorded Last Taken Type Arformoterol Nebu [Brovana Nebu] 15 mcg IH Q12HRT #1 ml 08/22/16 Unknown Rx Doxazosin [Cardura] 2 mg PO QDAY #30 tablet 08/22/16 Unknown Rx Furosemide [Lasix TAB] 80 mg PO DAILY@0600 #20 tablet 08/22/16 Unknown Rx Losartan [Cozaar] 100 mg PO QDAY #30 tablet 08/22/16 Unknown Rx Allergies Allergy/AdvReac Type Severity Reaction Status Date / Time No Known Allergies Allergy Verified 08/19/16 10:17 ED Review of Systems ROS: Stated complaint: POSS STROKE Other details as noted in HPI Comment: Unobtainable due to pts medical conditions ED Past Medical Hx - Past Medical History Hx Congestive Heart Failure: Yes Hx Renal Disease: Yes Hx Psychiatric Treatment: Yes (schizophrenia) Hx COPD: Yes - Social History Smoking Status: Never Smoker - Medications Home Medications: Home Medications Medication Instructions Recorded Confirmed Last Taken Type Doxazosin [Cardura] 2 mg PO QDAY 02/25/16 08/18/16 Unknown History Furosemide [Lasix TAB] 80 mg PO QDAY 02/25/16 08/18/16 Unknown History Sevelamer Carbonate [Renvela] 1,600 mg PO TIDWM 02/25/16 08/20/16 Unknown History Sodium Bicarbonate 325 mg PO BID 02/25/16 08/18/16 Unknown History hydrALAZINE [Apresoline] 50 mg PO Q8HR 02/25/16 08/18/16 Unknown History Arformoterol Nebu [Brovana Nebu] 15 mcg IH Q12HRT #1 ml 08/22/16 Unknown Rx Doxazosin [Cardura] 2 mg PO QDAY #30 tablet 08/22/16 Unknown Rx Furosemide [Lasix TAB] 80 mg PO DAILY@0600 #20 tablet 08/22/16 Unknown Rx Losartan [Cozaar] 100 mg PO QDAY #30 tablet 08/22/16 Unknown Rx ED Physical Exam - General Limitations: No Limitations, Altered Mental Status General appearance: alert - Head Head exam: Present: atraumatic, normocephalic - Eye Eye exam: Absent: nystagmus, periorbital swelling, periorbital tenderness - ENT ENT exam: Present: normal exam, normal orophraynx - Neck Neck exam: Present: normal inspection. Absent: tenderness, meningismus - Respiratory Respiratory exam: Present: wheezes, rales, rhonchi. Absent: stridor, accessory muscle use - Cardiovascular Cardiovascular Exam: Present: regular rate - GI/Abdominal GI/Abdominal exam: Present: soft. Absent: tenderness, guarding, rebound, rigid , mass, bruit, pulsatile mass - Extremities Exam Extremities exam: Present: pedal edema. Absent: calf tenderness - Back Exam Back exam: Present: normal inspection. Absent: CVA tenderness (L), paraspinal tenderness, vertebral tenderness - Neurological Exam Neurological exam: Present: other (left-sided weakness) ED Course - Reevaluation(s) Reevaluation #1: 03/17/17 16:41 Laboratory studies EKG chest x-ray and CT were obtained. Blood pressure was slightly elevated patient was given nitroglycerin ED Medical Decision Making - Lab Data Result diagrams: 03/17/17 14:08 03/17/17 14:19 - EKG Data -: EKG Interpreted by Me EKG shows normal: sinus rhythm - EKG Data When compared to previous EKG there are: previous EKG unavailable, other ( prolonged [place] left anterior anterior fascicular block peak T waves) - Radiology Data Radiology results: report reviewed - Medical Decision Making CT of the brain was obtained given patient's left-sided weakness however the weakness has been there for several days he is not within the window of TPA. CT shows no acute hemorrhage or infarct he does have atrophy otherwise chronic sinus disease. Respiratory showed mild congestion patient is going to be admitted to Dr. Lester I did discuss case with Dr. Christie patient's potassium did return at 8.3 he was given calcium gluconate he was also given insulin and bicarbonate and D50 as well as albuterol treatment we will attempt to contact his renal doctor for dialysis his vital signs were repeated stable deficit on the left side was not seen to be improving he will be admitted for further evaluation of left-sided weakness for possible CVA as well as end-stage renal disease with hyperkalemia and CHF Critical care attestation.: If time is entered above; I have spent that time in minutes in the direct care of this critically ill patient, excluding procedure time. ED Disposition Clinical Impression: Left-sided weakness, ESRD (end stage renal disease) on dialysis, Hyperkalemia, Pulmonary vascular congestion Disposition: OP ADMIT IP TO THIS HOSP Is pt being admited?: Yes Condition: Stable Referrals: ZEENAT PORTILLO MD [Primary Care Provider] - 3-5 Days Time of Disposition: 16:47
[2017-03-17 14:43] LABS: Mean Corpuscular HGB Conc 30 % (32-34); Mean Corpuscular Hemoglobin 31 pg (28-32); Mean Corpuscular Volume 105 fl (84-94); Platelet Count 105 K/mm3 (140-440); Red Blood Count 3.74 M/mm3 (3.65-5.03)
[2017-03-17 14:44] LABS: Hematocrit 39.3 % (35.5-45.6); Hemoglobin 11.6 gm/dl (11.8-15.2)
--- NOTE | 2017-03-17 14:51 | Cat Scan Report ---
CT HEAD WITHOUT CONTRAST INDICATION: Neuro deficits <6 hours or symptoms present upon awakening. 98N. Left-sided weakness. COMPARISON: July 2016. FINDINGS: Noncontrast head CT slightly limited due to artifact, though again demonstrates symmetric, age-appropriate ventricles and sulci. Mild periventricular hypodensities. Small, benign bilateral basal ganglia calcifications. Motion artifact partly degrades exam. No definite acute infarct, hemorrhage, mass effect or midline shift, to the extent assessed. Normal posterior fossa with preserved basilar cisterns. Normal eye globes. Leftward nasal septal deviation. Mild to moderate left maxillary sinus mucosal thickening, though slightly improved. Mild right maxillary sinus mucosal thickening is new. Clear remainder imaged aerated paranasal sinuses and mastoid air cells. Extensive atherosclerotic ICA calcifications. Intact calvarium. Normal scalp. Few missing teeth. Cervical spondylosis. CONCLUSION: No definite acute intracranial CT abnormality with age-appropriate atrophy and few other findings as sinusitis, as described. Please correlate. If focal neurologic deficits or strong clinical suspicion for an acute infarction exist, additional assessment as with MRI may be considered, as appropriate. I phoned above results to Dr. Herzog in the ER, 2:40 PM, 03/17/2017 who informed that patient symptoms were 2-3 days old. Thank you for the opportunity to participate in this patient's care.
[2017-03-17 15:07] LABS: Calcium 8.8 mg/dL (8.4-10.2)
[2017-03-17 15:31] LABS: Anisocytosis 1+; Basophils % (Manual) 0 % (0.0-1.8); Eosinophils % (Manual) 0 % (0.0-4.3); Hypochromasia 1+; Platelet Estimate Consistent w Auto; Total Cells Counted 100
[2017-03-17] MEDS ORDERED: SODIUM BICARBONATE IV ONE ×2 (15:32→16:00)
[2017-03-17] MEDS ORDERED: D50W (25GM) Vial IV ONE (15:33)
[2017-03-17] MEDS ORDERED: PROVENTIL IH ONE (15:42)
[2017-03-17 15:59] LABS: Chol/HDL Ratio 4.03 %
[2017-03-17] MEDS ORDERED: CALCIUM GLUCONATE 2,000 MG in NACL 0.9% 100 ML IV ONE (16:00)
[2017-03-17] MEDS ORDERED: D50W (25GM) Syringe IV ONE (16:00)
--- NOTE | 2017-03-17 16:26 | XRay Report ---
Portable chest: SOB. The heart projects as being enlarged and there may be mild vascular congestion. There is slight blunting of the costophrenic angle on the right. These findings are unchanged compared to prior exam on August 19, 2016. Impression: Probable mild CHF. No acute finding.
[2017-03-17] MEDS ORDERED: NITRO-BID 2% TP ONE (16:37)
[2017-03-17] MEDS ORDERED: NACL 0.9% 100 ML IV PRN (17:32)
--- NOTE | 2017-03-17 18:27 | History and Physical Report ---
History of Present Illness Date of examination: 03/17/17 Date of admission: 03/17/17 Chief complaint: Cc L sided weakness per family History of present illness: - History of Present Illness Initial comments: 71-year-old AA male with end-stage renal disease missed dialysis today has had left-sided weakness over the weekend. Family just brought him in today for evaluation but says he's been having problems using his left side since last weekend he is here :, with shortness of breath left-sided weakness and missed dialysis. Saturation was in the 70s when EMS arrived, now in 90's on patient gives no further history.History is from the family. There was no fever. No chest pain no abdominal pain he is here for evaluation of missing dialysis and a left-sided weakness. He is awake .Occasionally follows commands eyes are open but is not giving any history. Past Medical History ESRD COPD HTN Social History Smoking Status: Never Smoker PSH AV fistula Fam Hx Htn -Medications Home Medications: Home Medications Medication Instructions Recorded Confirmed Last Taken Type Doxazosin [Cardura] 2 mg PO QDAY 02/25/16 08/18/16 Unknown History Furosemide [Lasix TAB] 80 mg PO QDAY 02/25/16 08/18/16 Unknown History Sevelamer Carbonate [Renvela] 1,600 mg PO TIDWM 02/25/16 08/20/16 Unknown History Sodium Bicarbonate 325 mg PO BID 02/25/16 08/18/16 Unknown History hydrALAZINE [Apresoline] 50 mg PO Q8HR 02/25/16 08/18/16 Unknown History Arformoterol Nebu [Brovana Nebu] 15 mcg IH Q12HRT #1 ml 08/22/16 Unknown Rx Doxazosin [Cardura] 2 mg PO QDAY #30 tablet 08/22/16 Unknown Rx Furosemide [Lasix TAB] 80 mg PO DAILY@0600 #20 tablet 08/22/16 Unknown Rx Losartan [Cozaar] 100 mg PO QDAY #30 tablet 08/22/16 Unknown Rx Review of Systems ROS: Stated complaint: POSS STROKE Other details as noted in HPI Comment: Unobtainable due to pts medical conditions Medications and Allergies Allergies Allergy/AdvReac Type Severity Reaction Status Date / Time No Known Allergies Allergy Verified 08/19/16 10:17 Home Medications Medication Instructions Recorded Confirmed Last Taken Type Doxazosin [Cardura] 2 mg PO QDAY 02/25/16 03/17/17 Unknown History Amlodipine Besylate [Norvasc] 10 mg PO QDAY 03/17/17 03/17/17 Unknown History Ammonium Lactate [Lac-Hydrin 1 applicatio TP Q12H 03/17/17 03/17/17 Unknown History Lotion] AtorvaSTATin [Lipitor] 20 mg PO QHS 03/17/17 03/17/17 Unknown History Cholecalciferol (Vitamin D3) 5,000 unit PO QDAY 03/17/17 03/17/17 Unknown History [Vitamin D3] Gabapentin [Neurontin] 100 mg PO DAILY 03/17/17 03/17/17 Unknown History Loratadine 10 mg PO DAILY 03/17/17 03/17/17 Unknown History Metoprolol [Lopressor] 100 mg PO QDAY 03/17/17 03/17/17 Unknown History Montelukast [Singulair] 10 mg PO QPM 03/17/17 03/17/17 Unknown History Paliperidone [Invega] 6 mg PO QDAY 03/17/17 03/17/17 Unknown History Sevelamer HCl [Renagel] 800 mg PO TIDWM 03/17/17 03/17/17 Unknown History hydrALAZINE [Apresoline TAB] 100 mg PO Q8H 03/17/17 03/17/17 Unknown History Active Meds: Active Medications Sodium Chloride (Nacl 0.9%) 100 mls @ 999 mls/hr IV LIO PRN PRN Reason: Hypotension Exam - Constitutional Vitals: Temp Pulse Resp BP Pulse Ox 115 H 26 H 179/80 96 03/17/17 18:05 03/17/17 18:05 03/17/17 18:05 03/17/17 18:05 General appearance: Present: no acute distress, mild distress, well-nourished - EENT Eyes: Present: PERRL ENT: hearing intact, clear oral mucosa - Neck Neck: Present: supple, normal ROM - Respiratory Respiratory effort: normal Respiratory: bilateral: CTA - Cardiovascular Heart rate: 80 Rhythm: regular Heart Sounds: Present: S1 & S2. Absent: rub, click - Extremities Extremities: no ischemia, pulses intact, pulses symmetrical, No edema Peripheral Pulses: within normal limits - Abdominal General gastrointestinal: Present: soft, non-tender, non-distended, normal bowel sounds Male genitourinary: Present: normal - Rectal Rectal Exam: deferred - Integumentary Integumentary: Present: clear, warm, dry - Musculoskeletal Musculoskeletal: strength equal bilaterally, other (Cannot walk) - Psychiatric Psychiatric: appropriate mood/affect, depressed - Neurologic Neurologic: CNII-XII intact, focal deficits (L Hemiplegia ) - Allied Health Allied health notes reviewed: case management Results - Labs CBC & Chem 7: 03/18/17 03:11 03/18/17 03:11 Labs: Laboratory Last Values WBC 7.8 K/mm3 (4.5-11.0) 03/17/17 14:08 RBC 3.74 M/mm3 (3.65-5.03) 03/17/17 14:08 Hgb 11.6 gm/dl (11.8-15.2) L 03/17/17 14:08 Hct 39.3 % (35.5-45.6) 03/17/17 14:08 MCV 105 fl (84-94) H 03/17/17 14:08 MCH 31 pg (28-32) 03/17/17 14:08 MCHC 30 % (32-34) L 03/17/17 14:08 RDW 18.0 % (13.2-15.2) H 03/17/17 14:08 Plt Count 105 K/mm3 (140-440) L 03/17/17 14:08 Add Manual Diff Complete 03/17/17 14:08 Total Counted 100 03/17/17 14:08 Seg Neuts % (Manual) 55.0 % (40.0-70.0) 03/17/17 14:08 Band Neutrophils % 0 % 03/17/17 14:08 Lymphocytes % (Manual) 28.0 % (13.4-35.0) 03/17/17 14:08 Reactive Lymphs % (Man) 0 % 03/17/17 14:08 Monocytes % (Manual) 17.0 % (0.0-7.3) H 03/17/17 14:08 Eosinophils % (Manual) 0 % (0.0-4.3) 03/17/17 14:08 Basophils % (Manual) 0 % (0.0-1.8) 03/17/17 14:08 Metamyelocytes % 0 % 03/17/17 14:08 Myelocytes % 0 % 03/17/17 14:08 Promyelocytes % 0 % 03/17/17 14:08 Blast Cells % 0 % 03/17/17 14:08 Nucleated RBC % Not Reportable 03/17/17 14:08 Seg Neutrophils # Man 4.3 K/mm3 (1.8-7.7) 03/17/17 14:08 Band Neutrophils # 0.0 K/mm3 03/17/17 14:08 Lymphocytes # (Manual) 2.2 K/mm3 (1.2-5.4) 03/17/17 14:08 Abs React Lymphs (Man) 0.0 K/mm3 03/17/17 14:08 Monocytes # (Manual) 1.3 K/mm3 (0.0-0.8) H 03/17/17 14:08 Eosinophils # (Manual) 0.0 K/mm3 (0.0-0.4) 03/17/17 14:08 Basophils # (Manual) 0.0 K/mm3 (0.0-0.1) 03/17/17 14:08 Metamyelocytes # 0.0 K/mm3 03/17/17 14:08 Myelocytes # 0.0 K/mm3 03/17/17 14:08 Promyelocytes # 0.0 K/mm3 03/17/17 14:08 Blast Cells # 0.0 K/mm3 03/17/17 14:08 WBC Morphology Not Reportable 03/17/17 14:08 Hypersegmented Neuts Not Reportable 03/17/17 14:08 Hyposegmented Neuts Not Reportable 03/17/17 14:08 Hypogranular Neuts Not Reportable 03/17/17 14:08 Smudge Cells Not Reportable 03/17/17 14:08 Toxic Granulation Not Reportable 03/17/17 14:08 Toxic Vacuolation Not Reportable 03/17/17 14:08 Dohle Bodies Not Reportable 03/17/17 14:08 Pelger-Huet Anomaly Not Reportable 03/17/17 14:08 Alison Rods Not Reportable 03/17/17 14:08 Platelet Estimate Consistent w auto 03/17/17 14:08 Clumped Platelets Not Reportable 03/17/17 14:08 Plt Clumps, EDTA Not Reportable 03/17/17 14:08 Large Platelets Not Reportable 03/17/17 14:08 Giant Platelets Not Reportable 03/17/17 14:08 Platelet Satelliting Not Reportable 03/17/17 14:08 Plt Morphology Comment Not Reportable 03/17/17 14:08 RBC Morphology Not Reportable 03/17/17 14:08 Dimorphic RBCs Not Reportable 03/17/17 14:08 Polychromasia Not Reportable 03/17/17 14:08 Hypochromasia 1+ 03/17/17 14:08 Poikilocytosis Not Reportable 03/17/17 14:08 Anisocytosis 1+ 03/17/17 14:08 Microcytosis Not Reportable 03/17/17 14:08 Macrocytosis Not Reportable 03/17/17 14:08 Spherocytes Not Reportable 03/17/17 14:08 Pappenheimer Bodies Not Reportable 03/17/17 14:08 Sickle Cells Not Reportable 03/17/17 14:08 Target Cells Not Reportable 03/17/17 14:08 Tear Drop Cells Not Reportable 03/17/17 14:08 Ovalocytes Not Reportable 03/17/17 14:08 Helmet Cells Not Reportable 03/17/17 14:08 Benjamin-Elbert Bodies Not Reportable 03/17/17 14:08 [place] Rings Not Reportable 03/17/17 14:08 [place] Cells Not Reportable 03/17/17 14:08 Bite Cells Not Reportable 03/17/17 14:08 Crenated Cell Not Reportable 03/17/17 14:08 Elliptocytes Not Reportable 03/17/17 14:08 Acanthocytes (Spur) Not Reportable 03/17/17 14:08 Rouleaux Not Reportable 03/17/17 14:08 Hemoglobin C Crystals Not Reportable 03/17/17 14:08 Schistocytes Not Reportable 03/17/17 14:08 Malaria parasites Not Reportable 03/17/17 14:08 [place] Bodies Not Reportable 03/17/17 14:08 Hem Pathologist Commnt No 03/17/17 14:08 POC ABG pH 7.161 (7.35-7.45) L 03/17/17 16:53 POC ABG pCO2 68.4 (35-45) H 03/17/17 16:53 POC ABG pO2 123 (80-105) H 03/17/17 16:53 POC ABG HCO3 24.5 03/17/17 16:53 POC ABG Total CO2 27 03/17/17 16:53 POC ABG O2 Sat 97 03/17/17 16:53 POC ABG Base Excess -4 03/17/17 16:53 FiO2 98 % 03/17/17 16:53 Sodium 139 mmol/L (137-145) 03/17/17 14:19 Potassium 8.3 mmol/L (3.6-5.0) H* 03/17/17 14:19 Chloride 101.9 mmol/L (98-107) 03/17/17 14:19 Carbon Dioxide 14 mmol/L (22-30) L 03/17/17 14:19 Anion Gap 32 mmol/L 03/17/17 14:19 BUN 79 mg/dL (9-20) H 03/17/17 14:19 Creatinine 16.8 mg/dL (0.8-1.5) H 03/17/17 14:19 Estimated GFR 3 ml/min 03/17/17 14:19 BUN/Creatinine Ratio 5 % 03/17/17 14:19 Glucose 74 mg/dL (75-100) L 03/17/17 14:19 POC Glucose 210 (70-105) H 03/17/17 16:36 Calcium 8.8 mg/dL (8.4-10.2) 03/17/17 14:19 Troponin T 0.155 ng/mL (0.00-0.029) H* 03/17/17 14:19 Triglycerides 229 mg/dL (2-149) H 03/17/17 14:19 Cholesterol 129 mg/dL (50-199) 03/17/17 14:19 LDL Cholesterol Direct 52 mg/dL (50-130) 03/17/17 14:19 HDL Cholesterol 32 mg/dL (40-59) L 03/17/17 14:19 Cholesterol/HDL Ratio 4.03 % 03/17/17 14:19 Short CBC 03/17/17 03/18/17 Range/Units 14:08 03:11 WBC 7.8 6.3 (4.5-11.0) K/mm3 Hgb 11.6 L 11.6 L (11.8-15.2) gm/dl Hct 39.3 36.5 (35.5-45.6) % Plt Count 105 L 93 L (140-440) K/mm3 BMP 03/17/17 03/18/17 14:19 03:11 Sodium 139 143 Potassium 8.3 H* 5.9 H D Chloride 101.9 94.9 L Carbon Dioxide 14 L 28 D BUN 79 H 46 H Creatinine 16.8 H 12.7 H Glucose 74 L 104 H Calcium 8.8 8.2 L Cardiac Enzymes 03/17/17 Range/Units 14:19 Troponin T 0.155 H* (0.00-0.029) ng/mL Liver Function 03/18/17 Range/Units 03:11 Total Bilirubin 0.50 (0.1-1.2) mg/dL AST 33 (5-40) units/L ALT 12 (7-56) units/L Alkaline Phosphatase 66 (35-129) units/L Albumin 3.5 L (3.9-5) g/dL - Imaging and Cardiology EKG: report reviewed (NSR LAFB non specific T wave abnormalities) Chest x-ray: report reviewed CT scan - chest: report reviewed Assessment and Plan Advance Directives: Yes (FC) VTE prophylaxis?: Chemical Plan of care discussed with patient/family: Yes - Patient Problems (1) Acute hypoxemic respiratory failure Current Visit: No Status: Acute Plan to address problem: Neb tx solumedrol and iv abx (2) Acute CVA (cerebrovascular accident) Current Visit: Yes Status: Acute Plan to address problem: CVA w/u ordered.PT/ot/Neuro consult (3) ESRD (end stage renal disease) on dialysis Current Visit: Yes Status: Chronic Plan to address problem: Emergent HD Vas cath requested (4) Hyperkalemia Current Visit: Yes Status: Acute Plan to address problem: Given Calcium gluconate D50 w with Insulin and Kayexalte and Emergent HD (5) HTN (hypertension) Current Visit: Yes Status: Chronic Qualifiers: Hypertension type: essential hypertension Qualified Code(s): I10 - Essential (primary) hypertension Plan to address problem: Cont antihypertensives (6) BPH (benign prostatic hyperplasia) Current Visit: Yes Status: Chronic Qualifiers: Lower urinary tract symptom presence: symptoms present Plan to address problem: Cont Cardura (7) Asthma Current Visit: Yes Status: Acute Qualifiers: Asthma severity: moderate Plan to address problem: on Singulair (8) DVT prophylaxis Current Visit: Yes Status: Acute Plan to address problem: on Lovenox
[2017-03-17] MEDS ORDERED: PERCOCET 5/325 PO PRN (18:29)
[2017-03-17] MEDS ORDERED: ZOFRAN IV PRN (18:29)
[2017-03-17] MEDS ORDERED: DULCOLAX PR PRN (18:29)
[2017-03-17] MEDS ORDERED: TYLENOL PO PRN (18:29)
[2017-03-17] MEDS ORDERED: MILK OF MAGNESIA PO PRN (18:29)
[2017-03-17] MEDS ORDERED: MORPHINE IV PRN (18:29)
[2017-03-17] MEDS ORDERED: DUONEB *Not for PRN Use IH (18:41)
[2017-03-17] MEDS ORDERED: NON-FORMULARY (Cholecalciferol (Vitamin D3) [Vitamin D3] 5,000 UNIT) PO SCH (18:45)
[2017-03-17] MEDS ORDERED: NON-FORMULARY (Paliperidone [Invega] 6 MG) PO SCH (18:45)
[2017-03-17] MEDS ORDERED: NOVOLOG SUB-Q ONE (18:46)
[2017-03-17] MEDS ORDERED: PROVENTIL IH PRN (18:53)
[2017-03-17] MEDS ORDERED: CARDURA PO SCH (19:00)
[2017-03-17] MEDS ORDERED: NORVASC PO SCH (19:00)
[2017-03-17] MEDS ORDERED: KIONEX PO ONE (19:30)
[2017-03-17] MEDS: DUONEB *Not for PRN Use IH SCH (21:25)
[2017-03-17] MEDS: HEPARIN SUB-Q SCH (23:24)
[2017-03-18] MEDS: DUONEB *Not for PRN Use IH SCH ×4 (03:00→20:00)
[2017-03-18 03:29] LABS: Hematocrit 36.5 % (35.5-45.6); Hemoglobin 11.6 gm/dl (11.8-15.2); Mean Corpuscular HGB Conc 32 % (32-34); Mean Corpuscular Hemoglobin 32 pg (28-32); Mean Corpuscular Volume 101 fl (84-94); Red Blood Count 3.62 M/mm3 (3.65-5.03); Red Cell Distribution Width 16.8 % (13.2-15.2)
[2017-03-18 03:39] LABS: Platelet Count 93 K/mm3 (140-440)
[2017-03-18 03:40] LABS: INR 1.05 (0.87-1.13)
[2017-03-18 03:41] LABS: Partial Thromboplastin Time 36.1 Sec. (24.2-36.6)
[2017-03-18] MEDS ORDERED: NACL 0.9% 250ML 250 ML IV ONE (04:02)
[2017-03-18 04:24] LABS: Albumin 3.5 g/dL (3.9-5); Calcium 8.2 mg/dL (8.4-10.2)
[2017-03-18] MEDS ORDERED: ALBURX 25% (ALBUMIN) IV ONE ×2 (04:29→19:30)
[2017-03-18 05:56] LABS: Total Cells Counted 100
[2017-03-18 05:57] LABS: Anisocytosis 1+; Band Neutrophils # (Manual) 0.1 K/mm3; Basophils % (Manual) 0 % (0.0-1.8); Eosinophils % (Manual) 0 % (0.0-4.3); Platelet Estimate Consistent w Auto
[2017-03-18] MEDS: LEVOPHED DRIP 4 MG/NS 250 ML 4 MG/250 ML BAG IV SCH ×3 (07:00→18:19)
--- NOTE | 2017-03-18 07:07 | Operative Report ---
Operative Report Operative Report: EXAM: ULTRASOUND GUIDED PLACEMENT OF CENTRAL VENOUS CATHETER CLINICAL INDICATION: PATIENT WITH A HISTORY OF END-STAGE RENAL DISEASE ON HEMODIALYSIS NOW REQUIRING CENTRAL VENOUS ACCESS FOR PRESSOR SUPPORT A DATE: 03/18/2017 PROCEDURE: Following an explanation of the risks, benefits and alternatives; written informed consent was obtained from the patient's next of kin. The cedar was performed at bedside in the ICU. Initial ultrasound evaluation of the patient's left neck demonstrated a patent left internal jugular vein. The patient's left neck was prepped and draped in usual sterile fashion. 1% lidocaine was used for anesthesia. Under ultrasound guidance, the left internal jugular vein was cannulated with a 7 cm 18-gauge needle. A 0.035 guidewire was advanced centrally easily. Ultrasound was used to identify the intravenous positioning of the needle and wire. The needle was removed. Following serial dilation, a 6 [place] triple lumen catheter was advanced over the guidewire centrally easily. The guidewire was removed. Nonpulsatile blood returned from the central venous catheter. The catheter was flushed with sterile saline and securely attached skin surface using 3-0 silk suture. A sterile dressing was then applied. The patient tolerated the procedure well. There were no immediate post procedure complications. Post procedure chest x-ray was ordered to document appropriate positioning. IMPRESSION: 1) Ultrasound guided placement of central venous catheter
--- NOTE | 2017-03-18 07:31 | XRay Report ---
AP CHEST: HISTORY: Left central line placement A left IJ central line has been inserted since 03/17/17. The distal tip overlies the lower SVC. Partial atelectasis of the right middle and lower lobes has developed. The right upper lobe and left lung are generally clear. Cardiomegaly is stable. IMPRESSION: Left IJ central line placement as described. No pneumothorax. Partial atelectasis has developed in the right lower lung. Stable cardiomegaly.
[2017-03-18] MEDS ORDERED: NON-FORMULARY (Sevelamer Hcl [Renagel] 800 MG) PO SCH (08:00)
[2017-03-18] MEDS ORDERED: SODIUM CHLORIDE FLUSH SYRINGE 10 ML IV PRN (08:00)
[2017-03-18] MEDS ORDERED: RENVELA PO SCH (08:00)
[2017-03-18] MEDS: HEPARIN SUB-Q SCH ×2 (09:34→23:19)
[2017-03-18] MEDS: NEURONTIN PO SCH (09:35)
[2017-03-18] MEDS: VITAMIN D3 PO SCH (09:35)
[2017-03-18] MEDS: LOPRESSOR PO SCH ×2 (09:35→20:18)
[2017-03-18] MEDS: CLARITIN PO SCH (09:35)
--- NOTE | 2017-03-18 10:23 | Progress Note ---
Subjective Date of service: 03/18/17 Objective - Vital Signs Vital signs: Vital Signs - 12hr 03/17/17 03/17/17 03/17/17 22:30 22:35 22:40 Temperature Pulse Rate 103 H 103 H 105 H Pulse Rate [ Anterior Bilateral Throughout] Respiratory 12 16 Rate Respiratory Rate [Anterior Bilateral Throughout] Blood Pressure 114/55 101/68 114/63 O2 Sat by Pulse 100 100 Oximetry O2 Sat by Pulse Oximetry [ Anterior Bilateral Throughout] 03/17/17 03/17/17 03/17/17 22:50 22:59 23:00 Temperature 102.0 F H Pulse Rate 103 H 104 H 100 H Pulse Rate [ Anterior Bilateral Throughout] Respiratory 14 17 19 Rate Respiratory Rate [Anterior Bilateral Throughout] Blood Pressure 101/68 101/68 101/68 O2 Sat by Pulse 95 Oximetry O2 Sat by Pulse 92 Oximetry [ Anterior Bilateral Throughout] 03/17/17 03/17/17 03/17/17 23:10 23:20 23:30 Temperature Pulse Rate 103 H 97 H 93 H Pulse Rate [ Anterior Bilateral Throughout] Respiratory 22 20 24 Rate Respiratory Rate [Anterior Bilateral Throughout] Blood Pressure 132/51 120/55 120/51 O2 Sat by Pulse 90 100 100 Oximetry O2 Sat by Pulse Oximetry [ Anterior Bilateral Throughout] 03/17/17 03/17/17 03/18/17 23:40 23:50 00:00 Temperature 100.1 F H Pulse Rate 94 H 95 H 98 H Pulse Rate [ Anterior Bilateral Throughout] Respiratory 22 23 23 Rate Respiratory Rate [Anterior Bilateral Throughout] Blood Pressure 120/51 122/58 125/58 O2 Sat by Pulse 100 100 Oximetry O2 Sat by Pulse Oximetry [ Anterior Bilateral Throughout] 03/18/17 03/18/17 03/18/17 00:10 00:15 00:20 Temperature Pulse Rate 99 H 119 H 100 H Pulse Rate [ Anterior Bilateral Throughout] Respiratory 28 H 12 Rate Respiratory Rate [Anterior Bilateral Throughout] Blood Pressure 125/58 136/60 125/58 O2 Sat by Pulse 72 L 95 100 Oximetry O2 Sat by Pulse Oximetry [ Anterior Bilateral Throughout] 03/18/17 03/18/17 03/18/17 00:30 00:40 00:50 Temperature Pulse Rate 97 H 96 H 94 H Pulse Rate [ Anterior Bilateral Throughout] Respiratory 13 17 20 Rate Respiratory Rate [Anterior Bilateral Throughout] Blood Pressure 125/58 125/58 125/58 O2 Sat by Pulse 100 100 100 Oximetry O2 Sat by Pulse Oximetry [ Anterior Bilateral Throughout] 03/18/17 03/18/17 03/18/17 01:00 01:10 01:20 Temperature Pulse Rate 94 H 95 H 98 H Pulse Rate [ Anterior Bilateral Throughout] Respiratory 14 19 16 Rate Respiratory Rate [Anterior Bilateral Throughout] Blood Pressure 116/52 116/52 116/52 O2 Sat by Pulse 100 100 100 Oximetry O2 Sat by Pulse Oximetry [ Anterior Bilateral Throughout] 03/18/17 03/18/17 03/18/17 01:30 01:40 01:50 Temperature Pulse Rate 105 H 109 H 108 H Pulse Rate [ Anterior Bilateral Throughout] Respiratory 16 22 15 Rate Respiratory Rate [Anterior Bilateral Throughout] Blood Pressure 116/52 116/52 116/52 O2 Sat by Pulse 100 100 100 Oximetry O2 Sat by Pulse Oximetry [ Anterior Bilateral Throughout] 03/18/17 03/18/17 03/18/17 02:00 02:10 02:20 Temperature Pulse Rate 109 H 111 H 112 H Pulse Rate [ Anterior Bilateral Throughout] Respiratory 15 12 13 Rate Respiratory Rate [Anterior Bilateral Throughout] Blood Pressure 123/65 116/52 116/52 O2 Sat by Pulse 100 100 94 Oximetry O2 Sat by Pulse Oximetry [ Anterior Bilateral Throughout] 03/18/17 03/18/17 03/18/17 02:30 02:33 02:40 Temperature Pulse Rate 110 H 105 H Pulse Rate [ 108 H Anterior Bilateral Throughout] Respiratory 12 21 Rate Respiratory 17 Rate [Anterior Bilateral Throughout] Blood Pressure 116/52 116/52 O2 Sat by Pulse 100 99 Oximetry O2 Sat by Pulse Oximetry [ Anterior Bilateral Throughout] 03/18/17 03/18/17 03/18/17 02:48 02:50 02:55 Temperature Pulse Rate 103 H 104 H Pulse Rate [ 103 H Anterior Bilateral Throughout] Respiratory 27 H 18 Rate Respiratory 18 Rate [Anterior Bilateral Throughout] Blood Pressure 123/65 116/52 O2 Sat by Pulse 94 91 Oximetry O2 Sat by Pulse Oximetry [ Anterior Bilateral Throughout] 03/18/17 03/18/17 03/18/17 03:00 03:10 03:20 Temperature Pulse Rate 102 H 102 H 101 H Pulse Rate [ Anterior Bilateral Throughout] Respiratory 19 26 H 20 Rate Respiratory Rate [Anterior Bilateral Throughout] Blood Pressure 93/48 93/48 93/48 O2 Sat by Pulse 91 96 95 Oximetry O2 Sat by Pulse Oximetry [ Anterior Bilateral Throughout] 03/18/17 03/18/17 03/18/17 03:30 03:40 03:50 Temperature Pulse Rate 99 H 98 H 96 H Pulse Rate [ Anterior Bilateral Throughout] Respiratory 14 17 20 Rate Respiratory Rate [Anterior Bilateral Throughout] Blood Pressure 93/48 93/48 93/48 O2 Sat by Pulse 88 84 Oximetry O2 Sat by Pulse Oximetry [ Anterior Bilateral Throughout] 03/18/17 03/18/17 03/18/17 04:00 04:06 04:10 Temperature 101.7 F H Pulse Rate 93 H 90 86 Pulse Rate [ Anterior Bilateral Throughout] Respiratory 44 H 26 H 23 Rate Respiratory Rate [Anterior Bilateral Throughout] Blood Pressure 76/40 76/40 76/35 O2 Sat by Pulse 83 L 96 96 Oximetry O2 Sat by Pulse Oximetry [ Anterior Bilateral Throughout] 03/18/17 03/18/17 03/18/17 04:20 04:30 04:40 Temperature Pulse Rate 89 93 H 93 H Pulse Rate [ Anterior Bilateral Throughout] Respiratory 21 27 H Rate Respiratory Rate [Anterior Bilateral Throughout] Blood Pressure 78/44 81/42 80/44 O2 Sat by Pulse 77 L 97 Oximetry O2 Sat by Pulse Oximetry [ Anterior Bilateral Throughout] 03/18/17 03/18/17 03/18/17 04:50 05:00 05:10 Temperature Pulse Rate 94 H 96 H 94 H Pulse Rate [ Anterior Bilateral Throughout] Respiratory 14 15 16 Rate Respiratory Rate [Anterior Bilateral Throughout] Blood Pressure 101/47 101/57 100/47 O2 Sat by Pulse 94 100 100 Oximetry O2 Sat by Pulse Oximetry [ Anterior Bilateral Throughout] 03/18/17 03/18/17 03/18/17 05:20 07:06 07:10 Temperature Pulse Rate 96 H 98 H Pulse Rate [ 98 H Anterior Bilateral Throughout] Respiratory 15 35 H Rate Respiratory 34 H Rate [Anterior Bilateral Throughout] Blood Pressure 100/47 98/45 O2 Sat by Pulse 100 94 Oximetry O2 Sat by Pulse Oximetry [ Anterior Bilateral Throughout] 03/18/17 03/18/17 07:17 08:00 Temperature 100.6 F H Pulse Rate Pulse Rate [ 102 H Anterior Bilateral Throughout] Respiratory Rate Respiratory 32 H Rate [Anterior Bilateral Throughout] Blood Pressure O2 Sat by Pulse Oximetry O2 Sat by Pulse Oximetry [ Anterior Bilateral Throughout] - Lab 03/18/17 03:11 12/27/17 03:11 Most recent lab results Calcium 8.2 mg/dL (8.4-10.2) L 03/18/17 03:11
[2017-03-18] MEDS: APRESOLINE PO SCH ×2 (11:14→20:06)
[2017-03-18] MEDS ORDERED: SODIUM BICARBONATE FEEDTUBE PRN (11:23)
[2017-03-18] MEDS ORDERED: SIMPLE SYRUP FEEDTUBE PRN ×2 (11:23)
[2017-03-18] MEDS ORDERED: PANCREAZE DR 10,500 UNIT FEEDTUBE PRN (11:23)
--- NOTE | 2017-03-18 11:28 | Consultation ---
History of Present Illness Consult date: 03/18/17 Requesting physician: RACHELLE DE LA ROSA History of present illness: 71-year-old AA male with end-stage renal disease missed dialysis today has had left-sided weakness over the weekend. Family just brought him in today for evaluation but says he's been having problems using his left side since last weekend he is here :, with shortness of breath left-sided weakness and missed dialysis. Saturation was in the 70s when EMS arrived, now in 90's on patient gives no further history.History is from the family. There was no fever. No chest pain no abdominal pain he is here for evaluation of missing dialysis and a left-sided weakness. He is awake .Occasionally follows commands eyes are open but is not giving any history. Overnight he had episodes of desaturations, I ordered NIPPV with the discussions that if he does not tolerate BIPAP, we need to proceed with endotracheal intubation He also had episodes of hypotension requiring volume resuscitation and initiation of vasopressor support. he is currently on empiric antibiotics, and I will get cultures. his daughter who is at the bedside says he is slow with ambulating and at home he does attempt to feed himself. He just got 2D echocardiogram Patient was seen and examined. Vitals, labs, medications, chart and imaging were reviewed. Discussed in interdisciplinary rounds Medications and Allergies Allergies Allergy/AdvReac Type Severity Reaction Status Date / Time No Known Allergies Allergy Verified 08/19/16 10:17 Home Medications Medication Instructions Recorded Confirmed Last Taken Type Doxazosin [Cardura] 2 mg PO QDAY 02/25/16 03/17/17 Unknown History Amlodipine Besylate [Norvasc] 10 mg PO QDAY 03/17/17 03/17/17 Unknown History Ammonium Lactate [Lac-Hydrin 1 applicatio TP Q12H 03/17/17 03/17/17 Unknown History Lotion] AtorvaSTATin [Lipitor] 20 mg PO QHS 03/17/17 03/17/17 Unknown History Cholecalciferol (Vitamin D3) 5,000 unit PO QDAY 03/17/17 03/17/17 Unknown History [Vitamin D3] Gabapentin [Neurontin] 100 mg PO DAILY 03/17/17 03/17/17 Unknown History Loratadine 10 mg PO DAILY 03/17/17 03/17/17 Unknown History Metoprolol [Lopressor] 100 mg PO QDAY 03/17/17 03/17/17 Unknown History Montelukast [Singulair] 10 mg PO QPM 03/17/17 03/17/17 Unknown History Paliperidone [Invega] 6 mg PO QDAY 03/17/17 03/17/17 Unknown History Sevelamer HCl [Renagel] 800 mg PO TIDWM 03/17/17 03/17/17 Unknown History hydrALAZINE [Apresoline TAB] 100 mg PO Q8H 03/17/17 03/17/17 Unknown History Active Meds: Active Medications Acetaminophen (Tylenol) 650 mg PO Q4H PRN PRN Reason: Pain MILD(1-3)/Fever >100.5/HOWARD Albuterol (Proventil) 2.5 mg IH Q4HRT PRN PRN Reason: Wheezing Albuterol/Ipratropium (Duoneb *Not For Prn Use*) 1 ampul IH Q6HRT [facility] Last Admin: 03/18/17 07:09 Dose: 1 ampul Amlodipine Besylate (Norvasc) 10 mg PO QDAY [facility] Last Admin: 03/18/17 09:35 Dose: Not Given Lipase/Protease/Amylase (Pancreaze Dr 10,500 Unit) 1 each FEEDTUBE PRN PRN PRN Reason: For Clogged Feeding Tube Atorvastatin Calcium (Lipitor) 20 mg PO QHS [facility] Last Admin: 03/17/17 23:26 Dose: Not Given Bisacodyl (Dulcolax) 10 mg IA QDAY PRN PRN Reason: Constipation unrelieved by MOM Cholecalciferol (Vitamin D3) 5,000 unit PO DAILY [facility] Last Admin: 03/18/17 09:35 Dose: Not Given Doxazosin Mesylate (Cardura) 2 mg PO QDAY [facility] Last Admin: 03/18/17 09:35 Dose: Not Given Gabapentin (Neurontin) 100 mg PO DAILY [facility] Last Admin: 03/18/17 09:35 Dose: Not Given Heparin Sodium (Porcine) (Heparin) 5,000 unit SUB-Q Q12HR [facility] Last Admin: 03/18/17 09:34 Dose: 5,000 unit Hydralazine HCl (Apresoline) 100 mg PO Q8H [facility] Last Admin: 03/18/17 11:14 Dose: Not Given Sodium Chloride (Nacl 0.9%) 100 mls @ 999 mls/hr IV LIO PRN PRN Reason: Hypotension Norepinephrine (Levophed Drip 4 Mg/Ns 250 Ml) 4 mg in 250 mls @ 7.5 mls/hr IV TITR DORITA; 2 MCG/MIN PRN Reason: Protocol Lactic Acid (Lac-Hydrin) 1 applic TP Q12H [facility] Loratadine (Claritin) 10 mg PO DAILY [facility] Last Admin: 03/18/17 09:35 Dose: Not Given Magnesium Hydroxide (Milk Of Magnesia) 30 ml PO Q4H PRN PRN Reason: Constipation Metoprolol Tartrate (Lopressor) 100 mg PO QDAY [facility] Last Admin: 03/18/17 09:35 Dose: Not Given Miscellaneous Medication (Paliperidone [Invega]) 6 mg PO QDAY [facility] Montelukast Sodium (Singulair) 10 mg PO QPM [facility] Morphine Sulfate (Morphine) 4 mg IV Q4H PRN PRN Reason: Pain , Severe (7-10) Morphine Sulfate (Morphine) 2 mg IV Q4H PRN PRN Reason: Pain, Moderate (4-6) Ondansetron HCl (Zofran) 4 mg IV Q8H PRN PRN Reason: N/V unrelieved by Reglan Oxycodone/Acetaminophen (Percocet 5/325) 1 tab PO Q6H PRN PRN Reason: Pain, Moderate (4-6) Sevelamer Carbonate (Renvela) 800 mg PO TIDWM [facility] Last Admin: 03/18/17 09:35 Dose: Not Given Simple Syrup (Simple Syrup) 15 ml FEEDTUBE PRN PRN PRN Reason: Hypoglycemia Simple Syrup (Simple Syrup) 30 ml FEEDTUBE PRN PRN PRN Reason: Hypoglycemia Sodium Bicarbonate (Sodium Bicarbonate) 325 mg FEEDTUBE PRN PRN PRN Reason: For Clogged Feeding Tube Sodium Chloride (Sodium Chloride Flush Syringe 10 Ml) 10 ml IV PRN PRN PRN Reason: LINE FLUSH Review of Systems ROS unobtainable: due to mental status Physical Examination Vital signs: Vital Signs Resp Pulse Ox 16 100 03/17/17 16:05 03/17/17 16:05 General appearance: lethargic, other (on NIPPV, just spontaneously and intermittently opens his eyes) ENT: oropharynx moist Neck: supple, no lymphadenopathy, no JVD Effort: mildly labored Ascultation: Bilateral: diminished breath sounds, rhonchi Cardiovascular: other (tachycardia, S1,S2, no murmurs, gallops or rubs) Extremities: no cyanosis, no edema, pulses normal, no ischemia or petechiae unable to assess Results - Laboratory Findings CBC and BMP: 03/18/17 21:45 03/18/17 19:02 ABG POC ABG pH 7.260 (7.35-7.45) L 03/18/17 09:07 POC ABG pCO2 62.8 (35-45) H 03/18/17 09:07 POC ABG pO2 74 (80-105) L 03/18/17 09:07 POC ABG HCO3 28.2 03/18/17 09:07 POC ABG Total CO2 30 03/18/17 09:07 POC ABG O2 Sat 92 03/18/17 09:07 PT/INR, D-dimer PT 14.2 Sec. (12.2-14.9) 03/18/17 03:11 INR 1.05 (0.87-1.13) 03/18/17 03:11 Abnormal lab findings: Abnormal Labs 03/17/17 03/17/17 03/17/17 14:08 14:19 16:36 RBC Hgb 11.6 L MCV 105 H MCHC 30 L RDW 18.0 H Plt Count 105 L Seg Neuts % (Manual) Lymphocytes % (Manual) Monocytes % (Manual) 17.0 H Lymphocytes # (Manual) Monocytes # (Manual) 1.3 H POC ABG pH POC ABG pCO2 POC ABG pO2 Potassium 8.3 H* Chloride Carbon Dioxide 14 L BUN 79 H Creatinine 16.8 H Glucose 74 L POC Glucose 210 H Calcium Troponin T 0.155 H* Total Protein Albumin Triglycerides 229 H HDL Cholesterol 32 L 03/17/17 03/17/17 03/18/17 16:53 21:31 03:11 RBC 3.62 L Hgb 11.6 L MCV 101 H MCHC RDW 16.8 H Plt Count 93 L Seg Neuts % (Manual) 79.0 H Lymphocytes % (Manual) 12.0 L Monocytes % (Manual) Lymphocytes # (Manual) 0.8 L Monocytes # (Manual) POC ABG pH 7.161 L POC ABG pCO2 68.4 H POC ABG pO2 123 H Potassium Chloride Carbon Dioxide BUN Creatinine Glucose POC Glucose 156 H Calcium Troponin T Total Protein Albumin Triglycerides HDL Cholesterol 03/18/17 03/18/17 03/18/17 03:11 03:45 06:29 RBC Hgb MCV MCHC RDW Plt Count Seg Neuts % (Manual) Lymphocytes % (Manual) Monocytes % (Manual) Lymphocytes # (Manual) Monocytes # (Manual) POC ABG pH 7.224 L 7.174 L POC ABG pCO2 74.6 H 86.1 H POC ABG pO2 70 L 229 H Potassium 5.9 H D Chloride 94.9 L Carbon Dioxide BUN 46 H Creatinine 12.7 H Glucose 104 H POC Glucose Calcium 8.2 L Troponin T Total Protein 6.0 L Albumin 3.5 L Triglycerides HDL Cholesterol 03/18/17 09:07 RBC Hgb MCV MCHC RDW Plt Count Seg Neuts % (Manual) Lymphocytes % (Manual) Monocytes % (Manual) Lymphocytes # (Manual) Monocytes # (Manual) POC ABG pH 7.260 L POC ABG pCO2 62.8 H POC ABG pO2 74 L Potassium Chloride Carbon Dioxide BUN Creatinine Glucose POC Glucose Calcium Troponin T Total Protein Albumin Triglycerides HDL Cholesterol - Diagnostic Findings Chest x-ray: image reviewed (Right pleural effusion, small) Additional studies: CT head, no acute intracranial process. MRI recommended Assessment and Plan - Patient Problems (1) Acute hypoxemic respiratory failure Current Visit: No Status: Acute Plan to address problem: Continues to protect and maintain his airway. Adjustments made on IPAP and EPAP with better gas exchange Continue with supplemental oxygen to keep O2 sats>90% Discussed again with the daughter that if he fails BIPAP, or is unable to protect his airway, he will need to be orally intubated (2) Acute encephalopathy Current Visit: No Status: Acute Plan to address problem: Toxic, metabolic. For MRI (3) ESRD (end stage renal disease) on dialysis Current Visit: Yes Status: Chronic Plan to address problem: Renal consulted for [employer] With hypotension would be cautious with HD/UF (4) Hyperkalemia, diminished renal excretion Current Visit: No Status: Acute Plan to address problem: HD (5) Hypotension (arterial) Current Visit: Yes Status: Acute Plan to address problem: Admitted with hypertensive urgency s/p HD Now hyoptensive. Treat empirically as septic shock Get 2D echocardiogram to evaluate cardiac function Judicious volume resusctitation, Central venous access vasopressor support to keep MAp >65 Empiric antibiotics If any fevers desai culture Discussed with the daughter at length at the bedside. he is full code in the event of cardiopulmonary arrest Critical care time in (mins) excluding proc time.: 45 Critical care attestation.: If time is entered above; I have spent that time in minutes in the direct care of this critically ill patient, excluding procedure time.
[2017-03-18] MEDS ORDERED: NACL 0.9% 100 ML IV PRN (11:30)
--- NOTE | 2017-03-18 11:30 | Progress Note ---
Assessment and Plan Assessment and plan: Severe Sepsis. Present on admission. Patient is hypotensive requiring Levophed. Titrate to maintain him AP greater than 65 mmHg. Start IV antibiotics. ID consultation. Check blood cultures and lactic acid levels. Acute hypoxemic respiratory failure. Continue BiPAP as clinically indicated. Acute CVA. Neurology consultation pending. Follow-up echocardiogram and MRI when patient stable. ESRD. Continue hemodialysis per nephrology. Hyperkalemia. Patient status post calcium gluconate, D50/Insulin, Kayexalate and emergent hemodialysis BPH. Hold medication given hypotension Asthma. The high probability of a clinically significant, sudden or life threatening deterioration of the [respiratory and immunologic] system(s) required my full and direct attention, intervention and personal management. The aggregate critical care time was [32] minutes. This time is in addition to time spent performing reported procedures but includes the following: [x] Data Review and interpretation [x] Patient assessment and monitoring of vital signs [x] Documentation [x] Medication orders and management History Interval history: Patient currently on BiPAP and pressors of Levophed Hospitalist Physical - Constitutional Vitals: Temp Pulse Resp BP Pulse Ox 100.6 F H 101 H 15 113/55 99 03/18/17 08:00 03/18/17 10:50 03/18/17 10:50 03/18/17 10:50 03/18/17 10:50 General appearance: Present: mild distress, well-nourished - EENT Eyes: Present: PERRL, EOM intact ENT: hearing intact, clear oral mucosa, dentition normal - Neck Neck: Present: supple, normal ROM - Respiratory Respiratory effort: normal Respiratory: bilateral: diminished, rhonchi - Cardiovascular Rhythm: regular Heart Sounds: Present: S1 & S2. Absent: gallop, rub - Extremities Extremities: no ischemia, No edema, Full ROM - Abdominal General gastrointestinal: soft, non-tender, non-distended, normal bowel sounds - Integumentary Integumentary: Present: clear, warm, dry - Neurologic Neurologic: CNII-XII intact, moves all extremities Results - Labs CBC & Chem 7: 03/18/17 03:11 03/18/17 03:11 Labs: Laboratory Last Values WBC 6.3 K/mm3 (4.5-11.0) 03/18/17 03:11 RBC 3.62 M/mm3 (3.65-5.03) L 03/18/17 03:11 Hgb 11.6 gm/dl (11.8-15.2) L 03/18/17 03:11 Hct 36.5 % (35.5-45.6) 03/18/17 03:11 MCV 101 fl (84-94) H 03/18/17 03:11 MCH 32 pg (28-32) 03/18/17 03:11 MCHC 32 % (32-34) 03/18/17 03:11 RDW 16.8 % (13.2-15.2) H 03/18/17 03:11 Plt Count 93 K/mm3 (140-440) L 03/18/17 03:11 Add Manual Diff Complete 03/18/17 03:11 Total Counted 100 03/18/17 03:11 Seg Neuts % (Manual) 79.0 % (40.0-70.0) H 03/18/17 03:11 Band Neutrophils % 2.0 % 03/18/17 03:11 Lymphocytes % (Manual) 12.0 % (13.4-35.0) L 03/18/17 03:11 Reactive Lymphs % (Man) 0 % 03/18/17 03:11 Monocytes % (Manual) 7.0 % (0.0-7.3) 03/18/17 03:11 Eosinophils % (Manual) 0 % (0.0-4.3) 03/18/17 03:11 Basophils % (Manual) 0 % (0.0-1.8) 03/18/17 03:11 Metamyelocytes % 0 % 03/18/17 03:11 Myelocytes % 0 % 03/18/17 03:11 Promyelocytes % 0 % 03/18/17 03:11 Blast Cells % 0 % 03/18/17 03:11 Nucleated RBC % Not Reportable 03/18/17 03:11 Seg Neutrophils # Man 5.0 K/mm3 (1.8-7.7) 03/18/17 03:11 Band Neutrophils # 0.1 K/mm3 03/18/17 03:11 Lymphocytes # (Manual) 0.8 K/mm3 (1.2-5.4) L 03/18/17 03:11 Abs React Lymphs (Man) 0.0 K/mm3 03/18/17 03:11 Monocytes # (Manual) 0.4 K/mm3 (0.0-0.8) 03/18/17 03:11 Eosinophils # (Manual) 0.0 K/mm3 (0.0-0.4) 03/18/17 03:11 Basophils # (Manual) 0.0 K/mm3 (0.0-0.1) 03/18/17 03:11 Metamyelocytes # 0.0 K/mm3 03/18/17 03:11 Myelocytes # 0.0 K/mm3 03/18/17 03:11 Promyelocytes # 0.0 K/mm3 03/18/17 03:11 Blast Cells # 0.0 K/mm3 03/18/17 03:11 WBC Morphology Not Reportable 03/18/17 03:11 Hypersegmented Neuts Not Reportable 03/18/17 03:11 Hyposegmented Neuts Not Reportable 03/18/17 03:11 Hypogranular Neuts Not Reportable 03/18/17 03:11 Smudge Cells Not Reportable 03/18/17 03:11 Toxic Granulation Not Reportable 03/18/17 03:11 Toxic Vacuolation Not Reportable 03/18/17 03:11 Dohle Bodies Not Reportable 03/18/17 03:11 Pelger-Huet Anomaly Not Reportable 03/18/17 03:11 Alison Rods Not Reportable 03/18/17 03:11 Platelet Estimate Consistent w auto 03/18/17 03:11 Clumped Platelets Not Reportable 03/18/17 03:11 Plt Clumps, EDTA Not Reportable 03/18/17 03:11 Large Platelets Not Reportable 03/18/17 03:11 Giant Platelets Not Reportable 03/18/17 03:11 Platelet Satelliting Not Reportable 03/18/17 03:11 Plt Morphology Comment Not Reportable 03/18/17 03:11 RBC Morphology Not Reportable 03/18/17 03:11 Dimorphic RBCs Not Reportable 03/18/17 03:11 Polychromasia Not Reportable 03/18/17 03:11 Hypochromasia Not Reportable 03/18/17 03:11 Poikilocytosis Not Reportable 03/18/17 03:11 Anisocytosis 1+ 03/18/17 03:11 Microcytosis Not Reportable 03/18/17 03:11 Macrocytosis Not Reportable 03/18/17 03:11 Spherocytes Not Reportable 03/18/17 03:11 Pappenheimer Bodies Not Reportable 03/18/17 03:11 Sickle Cells Not Reportable 03/18/17 03:11 Target Cells Not Reportable 03/18/17 03:11 Tear Drop Cells Not Reportable 03/18/17 03:11 Ovalocytes Not Reportable 03/18/17 03:11 Helmet Cells Not Reportable 03/18/17 03:11 [place] Bodies Not Reportable 03/18/17 03:11 [place] Rings Not Reportable 03/18/17 03:11 Alvin Cells Not Reportable 03/18/17 03:11 Bite Cells Not Reportable 03/18/17 03:11 Crenated Cell Not Reportable 03/18/17 03:11 Elliptocytes Not Reportable 03/18/17 03:11 Acanthocytes (Spur) Not Reportable 03/18/17 03:11 Rouleaux Not Reportable 03/18/17 03:11 Hemoglobin C Crystals Not Reportable 03/18/17 03:11 Schistocytes Not Reportable 03/18/17 03:11 Malaria parasites Not Reportable 03/18/17 03:11 [place] Bodies Not Reportable 03/18/17 03:11 Hem Pathologist Commnt No 03/18/17 03:11 PT 14.2 Sec. (12.2-14.9) 03/18/17 03:11 INR 1.05 (0.87-1.13) 03/18/17 03:11 APTT 36.1 Sec. (24.2-36.6) 03/18/17 03:11 POC ABG pH 7.260 (7.35-7.45) L 03/18/17 09:07 POC ABG pCO2 62.8 (35-45) H 03/18/17 09:07 POC ABG pO2 74 (80-105) L 03/18/17 09:07 POC ABG HCO3 28.2 03/18/17 09:07 POC ABG Total CO2 30 03/18/17 09:07 POC ABG O2 Sat 92 03/18/17 09:07 POC ABG Base Excess 1 03/18/17 09:07 FiO2 50 % 03/18/17 09:07 Sodium 143 mmol/L (137-145) 03/18/17 03:11 Potassium 5.9 mmol/L (3.6-5.0) H D 03/18/17 03:11 Chloride 94.9 mmol/L (98-107) L 03/18/17 03:11 Carbon Dioxide 28 mmol/L (22-30) D 03/18/17 03:11 Anion Gap 26 mmol/L 03/18/17 03:11 BUN 46 mg/dL (9-20) H 03/18/17 03:11 Creatinine 12.7 mg/dL (0.8-1.5) H 03/18/17 03:11 Estimated GFR 5 ml/min 03/18/17 03:11 BUN/Creatinine Ratio 4 % 03/18/17 03:11 Glucose 104 mg/dL (75-100) H 03/18/17 03:11 POC Glucose 156 (70-105) H 03/17/17 21:31 Hemoglobin A1c 4.3 % (4-6) 03/17/17 19:30 Calcium 8.2 mg/dL (8.4-10.2) L 03/18/17 03:11 Total Bilirubin 0.50 mg/dL (0.1-1.2) 03/18/17 03:11 AST 33 units/L (5-40) 03/18/17 03:11 ALT 12 units/L (7-56) 03/18/17 03:11 Alkaline Phosphatase 66 units/L (35-129) 03/18/17 03:11 Troponin T 0.155 ng/mL (0.00-0.029) H* 03/17/17 14:19 Total Protein 6.0 g/dL (6.3-8.2) L 03/18/17 03:11 Albumin 3.5 g/dL (3.9-5) L 03/18/17 03:11 Albumin/Globulin Ratio 1.4 % 03/18/17 03:11 Triglycerides 229 mg/dL (2-149) H 03/17/17 14:19 Cholesterol 129 mg/dL (50-199) 03/17/17 14:19 LDL Cholesterol Direct 52 mg/dL (50-130) 03/17/17 14:19 HDL Cholesterol 32 mg/dL (40-59) L 03/17/17 14:19 Cholesterol/HDL Ratio 4.03 % 03/17/17 14:19
[2017-03-18] MEDS: ZOSYN/NS 2.25 GM/50ML 2.25 GM/50 ML BAG IV SCH (13:24)
--- NOTE | 2017-03-18 13:37 | Consultation ---
History of Present Illness Consult date: 03/18/17 History of present illness: neor spoke to the supposedly has pre-existing weakness and severe neuropathy will check CPK not sure of etiology of condition Medications and Allergies Allergies Allergy/AdvReac Type Severity Reaction Status Date / Time No Known Allergies Allergy Verified 08/19/16 10:17 Home Medications Medication Instructions Recorded Confirmed Last Taken Type Doxazosin [Cardura] 2 mg PO QDAY 02/25/16 03/17/17 Unknown History Amlodipine Besylate [Norvasc] 10 mg PO QDAY 03/17/17 03/17/17 Unknown History Ammonium Lactate [Lac-Hydrin 1 applicatio TP Q12H 03/17/17 03/17/17 Unknown History Lotion] AtorvaSTATin [Lipitor] 20 mg PO QHS 03/17/17 03/17/17 Unknown History Cholecalciferol (Vitamin D3) 5,000 unit PO QDAY 03/17/17 03/17/17 Unknown History [Vitamin D3] Gabapentin [Neurontin] 100 mg PO DAILY 03/17/17 03/17/17 Unknown History Loratadine 10 mg PO DAILY 03/17/17 03/17/17 Unknown History Metoprolol [Lopressor] 100 mg PO QDAY 03/17/17 03/17/17 Unknown History Montelukast [Singulair] 10 mg PO QPM 03/17/17 03/17/17 Unknown History Paliperidone [Invega] 6 mg PO QDAY 03/17/17 03/17/17 Unknown History Sevelamer HCl [Renagel] 800 mg PO TIDWM 03/17/17 03/17/17 Unknown History hydrALAZINE [Apresoline TAB] 100 mg PO Q8H 03/17/17 03/17/17 Unknown History Active Meds: Active Medications Acetaminophen (Tylenol) 650 mg PO Q4H PRN PRN Reason: Pain MILD(1-3)/Fever >100.5/HOWARD Albuterol (Proventil) 2.5 mg IH Q4HRT PRN PRN Reason: Wheezing Albuterol/Ipratropium (Duoneb *Not For Prn Use*) 1 ampul IH Q6HRT [facility] Last Admin: 03/18/17 07:09 Dose: 1 ampul Amlodipine Besylate (Norvasc) 10 mg PO QDAY [facility] Last Admin: 03/18/17 09:35 Dose: Not Given Lipase/Protease/Amylase (Pancreaze Dr 10,500 Unit) 1 each FEEDTUBE PRN PRN PRN Reason: For Clogged Feeding Tube Atorvastatin Calcium (Lipitor) 20 mg PO QHS [facility] Last Admin: 03/17/17 23:26 Dose: Not Given Bisacodyl (Dulcolax) 10 mg [place] QDAY PRN PRN Reason: Constipation unrelieved by MOM Cholecalciferol (Vitamin D3) 5,000 unit PO DAILY [facility] Last Admin: 03/18/17 09:35 Dose: Not Given Doxazosin Mesylate (Cardura) 2 mg PO QDAY [facility] Last Admin: 03/18/17 09:35 Dose: Not Given Gabapentin (Neurontin) 100 mg PO DAILY [facility] Last Admin: 03/18/17 09:35 Dose: Not Given Heparin Sodium (Porcine) (Heparin) 5,000 unit SUB-Q Q12HR [facility] Last Admin: 03/18/17 09:34 Dose: 5,000 unit Hydralazine HCl (Apresoline) 100 mg PO Q8H [facility] Last Admin: 03/18/17 11:14 Dose: Not Given Sodium Chloride (Nacl 0.9%) 100 mls @ 999 mls/hr IV LIO PRN PRN Reason: Hypotension Norepinephrine (Levophed Drip 4 Mg/Ns 250 Ml) 4 mg in 250 mls @ 7.5 mls/hr IV TITR DORITA; 2 MCG/MIN PRN Reason: Protocol Last Admin: 03/18/17 13:23 Dose: 5 mcg/min, 18.75 mls/hr Piperacillin Sod/Tazobactam Sod (Zosyn/Ns 2.25 Gm/50ml) 2.25 gm in 50 mls @ 100 mls/hr IV Q12H [facility] Last Admin: 03/18/17 13:24 Dose: 100 mls/hr Lactic Acid (Lac-Hydrin) 1 applic TP Q12H [facility] Loratadine (Claritin) 10 mg PO DAILY [facility] Last Admin: 03/18/17 09:35 Dose: Not Given Magnesium Hydroxide (Milk Of Magnesia) 30 ml PO Q4H PRN PRN Reason: Constipation Metoprolol Tartrate (Lopressor) 100 mg PO QDAY [facility] Last Admin: 03/18/17 09:35 Dose: Not Given Miscellaneous Medication (Paliperidone [Invega]) 6 mg PO QDAY [facility] Montelukast Sodium (Singulair) 10 mg PO QPM [facility] Morphine Sulfate (Morphine) 4 mg IV Q4H PRN PRN Reason: Pain , Severe (7-10) Morphine Sulfate (Morphine) 2 mg IV Q4H PRN PRN Reason: Pain, Moderate (4-6) Ondansetron HCl (Zofran) 4 mg IV Q8H PRN PRN Reason: N/V unrelieved by Reglan Oxycodone/Acetaminophen (Percocet 5/325) 1 tab PO Q6H PRN PRN Reason: Pain, Moderate (4-6) Sevelamer Carbonate (Renvela) 800 mg PO TIDWM [facility] Last Admin: 03/18/17 09:35 Dose: Not Given Simple Syrup (Simple Syrup) 15 ml FEEDTUBE PRN PRN PRN Reason: Hypoglycemia Simple Syrup (Simple Syrup) 30 ml FEEDTUBE PRN PRN PRN Reason: Hypoglycemia Sodium Bicarbonate (Sodium Bicarbonate) 325 mg FEEDTUBE PRN PRN PRN Reason: For Clogged Feeding Tube Sodium Chloride (Sodium Chloride Flush Syringe 10 Ml) 10 ml IV PRN PRN PRN Reason: LINE FLUSH Physical Examination - Vital Signs Vital Signs: Vital Signs Resp Pulse Ox 16 100 03/17/17 16:05 03/17/17 16:05 Results - Laboratory Findings CBC and BMP: 03/18/17 03:11 03/18/17 03:11 Abnormal Lab Findings: Abnormal Labs 03/17/17 03/17/17 03/17/17 14:08 14:19 16:36 RBC Hgb 11.6 L MCV 105 H MCHC 30 L RDW 18.0 H Plt Count 105 L Seg Neuts % (Manual) Lymphocytes % (Manual) Monocytes % (Manual) 17.0 H Lymphocytes # (Manual) Monocytes # (Manual) 1.3 H POC ABG pH POC ABG pCO2 POC ABG pO2 Potassium 8.3 H* Chloride Carbon Dioxide 14 L BUN 79 H Creatinine 16.8 H Glucose 74 L POC Glucose 210 H Calcium Troponin T 0.155 H* Total Protein Albumin Triglycerides 229 H HDL Cholesterol 32 L 03/17/17 03/17/17 03/18/17 16:53 21:31 03:11 RBC 3.62 L Hgb 11.6 L MCV 101 H MCHC RDW 16.8 H Plt Count 93 L Seg Neuts % (Manual) 79.0 H Lymphocytes % (Manual) 12.0 L Monocytes % (Manual) Lymphocytes # (Manual) 0.8 L Monocytes # (Manual) POC ABG pH 7.161 L POC ABG pCO2 68.4 H POC ABG pO2 123 H Potassium Chloride Carbon Dioxide BUN Creatinine Glucose POC Glucose 156 H Calcium Troponin T Total Protein Albumin Triglycerides HDL Cholesterol 03/18/17 03/18/17 03/18/17 03:11 03:45 06:29 RBC Hgb MCV MCHC RDW Plt Count Seg Neuts % (Manual) Lymphocytes % (Manual) Monocytes % (Manual) Lymphocytes # (Manual) Monocytes # (Manual) POC ABG pH 7.224 L 7.174 L POC ABG pCO2 74.6 H 86.1 H POC ABG pO2 70 L 229 H Potassium 5.9 H D Chloride 94.9 L Carbon Dioxide BUN 46 H Creatinine 12.7 H Glucose 104 H POC Glucose Calcium 8.2 L Troponin T Total Protein 6.0 L Albumin 3.5 L Triglycerides HDL Cholesterol 03/18/17 09:07 RBC Hgb MCV MCHC RDW Plt Count Seg Neuts % (Manual) Lymphocytes % (Manual) Monocytes % (Manual) Lymphocytes # (Manual) Monocytes # (Manual) POC ABG pH 7.260 L POC ABG pCO2 62.8 H POC ABG pO2 74 L Potassium Chloride Carbon Dioxide BUN Creatinine Glucose POC Glucose Calcium Troponin T Total Protein Albumin Triglycerides HDL Cholesterol
[2017-03-18] MEDS ORDERED: ZOSYN/NS 4.5GM/100ML 4.5 GM/100 ML VIAL IV SCH (14:00)
--- NOTE | 2017-03-18 14:57 | XRay Report ---
SUPINE KUB: History: Dobbhoff tube placement. The abdominal gas pattern is unremarkable. No masses or organomegaly is identified and there is no gross evidence of free air or fluid. No significant soft tissue calcifications are noted. The feeding tube terminates in the mid stomach. IMPRESSION: Feeding tube as described.
--- NOTE | 2017-03-18 17:01 | Consultation ---
History of Present Illness - Reason for Consult Consult date: 03/18/17 end stage renal disease, hyperkalemia - History of Present Illness History obtained from records. Patient is on bipap. Mr. Don is a 71yo gentleman with end-stage renal disease who presented to the ED w/ SOB and left sided weakness. Patient w/ reported O2 sat 70s upon EMS arrival. Patient last dialyzed on Mar 12. In the ED, labs notable for K 8.3. He is s/p HD overnight. Past History Past Medical History: ESRD, hypertension, hyperlipidemia, other (Hx of ANCA vasculitis) Social history: other (Unable to obtain) Family history: other (Unable to obtain) Medications and Allergies Allergies Allergy/AdvReac Type Severity Reaction Status Date / Time No Known Allergies Allergy Verified 08/19/16 10:17 Home Medications Medication Instructions Recorded Confirmed Last Taken Type Doxazosin [Cardura] 2 mg PO QDAY 02/25/16 03/17/17 Unknown History Amlodipine Besylate [Norvasc] 10 mg PO QDAY 03/17/17 03/17/17 Unknown History Ammonium Lactate [Lac-Hydrin 1 applicatio TP Q12H 03/17/17 03/17/17 Unknown History Lotion] AtorvaSTATin [Lipitor] 20 mg PO QHS 03/17/17 03/17/17 Unknown History Cholecalciferol (Vitamin D3) 5,000 unit PO QDAY 03/17/17 03/17/17 Unknown History [Vitamin D3] Gabapentin [Neurontin] 100 mg PO DAILY 03/17/17 03/17/17 Unknown History Loratadine 10 mg PO DAILY 03/17/17 03/17/17 Unknown History Metoprolol [Lopressor] 100 mg PO QDAY 03/17/17 03/17/17 Unknown History Montelukast [Singulair] 10 mg PO QPM 03/17/17 03/17/17 Unknown History Paliperidone [Invega] 6 mg PO QDAY 03/17/17 03/17/17 Unknown History Sevelamer HCl [Renagel] 800 mg PO TIDWM 03/17/17 03/17/17 Unknown History hydrALAZINE [Apresoline TAB] 100 mg PO Q8H 03/17/17 03/17/17 Unknown History Active Meds: Active Medications Acetaminophen (Tylenol) 650 mg PO Q4H PRN PRN Reason: Pain MILD(1-3)/Fever >100.5/HOWARD Albuterol (Proventil) 2.5 mg IH Q4HRT PRN PRN Reason: Wheezing Albuterol/Ipratropium (Duoneb *Not For Prn Use*) 1 ampul IH Q6HRT [facility] Last Admin: 03/18/17 13:38 Dose: 1 ampul Amlodipine Besylate (Norvasc) 10 mg PO QDAY [facility] Last Admin: 03/18/17 09:35 Dose: Not Given Lipase/Protease/Amylase (Pancreaze Dr 10,500 Unit) 1 each FEEDTUBE PRN PRN PRN Reason: For Clogged Feeding Tube Atorvastatin Calcium (Lipitor) 20 mg PO QHS [facility] Last Admin: 03/17/17 23:26 Dose: Not Given Bisacodyl (Dulcolax) 10 mg IN QDAY PRN PRN Reason: Constipation unrelieved by MOM Cholecalciferol (Vitamin D3) 5,000 unit PO DAILY [facility] Last Admin: 03/18/17 09:35 Dose: Not Given Doxazosin Mesylate (Cardura) 2 mg PO QDAY [facility] Last Admin: 03/18/17 09:35 Dose: Not Given Gabapentin (Neurontin) 100 mg PO DAILY [facility] Last Admin: 03/18/17 09:35 Dose: Not Given Heparin Sodium (Porcine) (Heparin) 5,000 unit SUB-Q Q12HR [facility] Last Admin: 03/18/17 09:34 Dose: 5,000 unit Hydralazine HCl (Apresoline) 100 mg PO Q8H [facility] Last Admin: 03/18/17 11:14 Dose: Not Given Sodium Chloride (Nacl 0.9%) 100 mls @ 999 mls/hr IV LIO PRN PRN Reason: Hypotension Norepinephrine (Levophed Drip 4 Mg/Ns 250 Ml) 4 mg in 250 mls @ 7.5 mls/hr IV TITR DORITA; 2 MCG/MIN PRN Reason: Protocol Last Titration: 03/18/17 15:45 Dose: 15 mcg/min, 56.25 mls/hr Piperacillin Sod/Tazobactam Sod (Zosyn/Ns 2.25 Gm/50ml) 2.25 gm in 50 mls @ 100 mls/hr IV Q12H [facility] Last Admin: 03/18/17 13:24 Dose: 100 mls/hr Lactic Acid (Lac-Hydrin) 1 applic TP Q12H [facility] Loratadine (Claritin) 10 mg PO DAILY [facility] Last Admin: 03/18/17 09:35 Dose: Not Given Magnesium Hydroxide (Milk Of Magnesia) 30 ml PO Q4H PRN PRN Reason: Constipation Metoprolol Tartrate (Lopressor) 100 mg PO QDAY [facility] Last Admin: 03/18/17 09:35 Dose: Not Given Miscellaneous Medication (Paliperidone [Invega]) 6 mg PO QDAY [facility] Montelukast Sodium (Singulair) 10 mg PO QPM [facility] Morphine Sulfate (Morphine) 4 mg IV Q4H PRN PRN Reason: Pain , Severe (7-10) Morphine Sulfate (Morphine) 2 mg IV Q4H PRN PRN Reason: Pain, Moderate (4-6) Ondansetron HCl (Zofran) 4 mg IV Q8H PRN PRN Reason: N/V unrelieved by Reglan Oxycodone/Acetaminophen (Percocet 5/325) 1 tab PO Q6H PRN PRN Reason: Pain, Moderate (4-6) Sevelamer Carbonate (Renvela) 800 mg PO TIDWM [facility] Last Admin: 03/18/17 09:35 Dose: Not Given Simple Syrup (Simple Syrup) 15 ml FEEDTUBE PRN PRN PRN Reason: Hypoglycemia Simple Syrup (Simple Syrup) 30 ml FEEDTUBE PRN PRN PRN Reason: Hypoglycemia Sodium Bicarbonate (Sodium Bicarbonate) 325 mg FEEDTUBE PRN PRN PRN Reason: For Clogged Feeding Tube Sodium Chloride (Sodium Chloride Flush Syringe 10 Ml) 10 ml IV PRN PRN PRN Reason: LINE FLUSH Review of Systems ROS unobtainable: due to mental status (Patient is on Bipap) Exam - Vital Signs Vital signs: Vital Signs Resp Pulse Ox 16 100 03/17/17 16:05 03/17/17 16:05 - General Appearance General appearance: well-developed, well-nourished EENT: ATNC, other (Bipap in place) Respiratory: Clear to Ascultation Heart: regular, S1S2 Gastrointestinal: Present: normal. Absent: tenderness, distended Integumentary: no rash, warm and dry Psychiatric: cooperative Results - Lab Results 03/18/17 03:11 03/18/17 03:11 Most recent lab results Calcium 8.2 mg/dL (8.4-10.2) L 03/18/17 03:11 Assessment and Plan Impression: * End stage renal disease on HD (TTS outpatient schedule) * Hyperkalemia * Acute hypoxic respiratory failure * Hypotension * Anemia * Hx of ANCA associated vasculitis Plan: * Hemodialysis again today - K 5.9 * No UF as patient is currently on Levophed * Abx per primary team * Dose medications for renal function * Avoid potential nephrotoxins
[2017-03-18] MEDS ORDERED: LOPRESSOR IV STA (17:58)
[2017-03-18] MEDS ORDERED: SINGULAIR PO SCH (18:00)
[2017-03-18] MEDS: LAC-HYDRIN TP SCH (20:16)
[2017-03-18] MEDS ORDERED: LACTATED RINGERS 500 ML IV ONE (21:07)
[2017-03-18] MEDS ORDERED: CORDARONE IV ONE (21:10)
[2017-03-18] MEDS ORDERED: SODIUM BICARBONATE IV ONE (21:10)
[2017-03-18] MEDS ORDERED: ADRENALIN ONE (21:10)
[2017-03-18] MEDS ORDERED: VANCOMYCIN/NS 1 GM/250 ML 1 GM/250 ML BAG IV ONE (21:11)
[2017-03-18] MEDS ORDERED: NEO-SYNEPHRINE 100 MG in NACL 0.9% 90 ML IV SCH (21:45)
[2017-03-18] MEDS ORDERED: CORDARONE 900 MG in D5W 482 ML IV SCH (22:00)
[2017-03-18] MEDS ORDERED: ADRENALIN 8 MG in NACL 0.9% 250ML 242 ML IV SCH (22:00)
[2017-03-18 22:02] LABS: Hematocrit 32.1 % (35.5-45.6); Hemoglobin 9.8 gm/dl (11.8-15.2); Mean Corpuscular HGB Conc 31 % (32-34); Mean Corpuscular Hemoglobin 32 pg (28-32); Mean Corpuscular Volume 104 fl (84-94); Red Blood Count 3.09 M/mm3 (3.65-5.03)
[2017-03-18 22:12] LABS: Platelet Count 75 K/mm3 (140-440)
[2017-03-18 22:23] LABS: Calcium 9.2 mg/dL (8.4-10.2)
--- NOTE | 2017-03-18 22:23 | Event Note ---
Date: 03/18/17 Called by lily CHANCE is tachycardic. Asked for EKG, she staes it is atrial fibrillation, however he has hypotension now and had a fever. Cultures were not sent Will get cultures, volume resuscitate, add vasopressin to therapy. Continue with antibiotics cardiology consult had been called Will need ID consult in am. If any acute deterioration in respiratory status--intubate.
[2017-03-18] MEDS ORDERED: NACL 0.9% 1000 ML 1,000 ML IV ONE (22:50)
[2017-03-18] MEDS: LEVOPHED 8 MG in NACL 0.9% 250ML 242 ML IV SCH (22:59)
[2017-03-18] MEDS: Vasostrict 20 UNIT in NACL 0.9% 100 ML IV SCH (23:01)
[2017-03-18] MEDS: INTROPIN DRIP 800 MG/D5W 250 ML 800 MG/250 ML BAG IV SCH (23:19)
[2017-03-18 23:48] LABS: Anisocytosis 1+; Basophils % (Manual) 0 % (0.0-1.8); Eosinophils % (Manual) 0 % (0.0-4.3); Macrocytosis 1+; Platelet Estimate Consistent w Auto; Total Cells Counted 100
--- NOTE | 2017-03-18 23:54 | XRay Report ---
FINAL REPORT PROCEDURE: XR CHEST 1V AP TECHNIQUE: Chest radiograph anteroposterior view. CPT 15358 HISTORY: code blue COMPARISON: No prior studies are available for comparison. FINDINGS: Heart: The heart is enlarged Mediastinum/Vessels: Normal. Lungs/Pleural space: There is a large right pleural effusion. There is no pneumothorax.. Bony thorax: No acute osseous abnormality. Life support devices: The endotracheal tube is in the mid trachea. The NG tube is in the stomach. There is a left-sided central venous catheter. The tip is in the superior vena cava.. IMPRESSION: The heart is enlarged There is a large right pleural effusion. There is no pneumothorax.. The endotracheal tube is in the mid trachea. The NG tube is in the stomach. There is a left-sided central venous catheter. The tip is in the superior vena cava.. .
[2017-03-19] MEDS: DUONEB *Not for PRN Use IH SCH ×4 (02:19→23:43)
[2017-03-19] MEDS: LEVOPHED 8 MG in NACL 0.9% 250ML 242 ML IV SCH ×3 (02:26→12:15)
[2017-03-19] MEDS: ZOSYN/NS 2.25 GM/50ML 2.25 GM/50 ML BAG IV SCH (02:29)
[2017-03-19] MEDS: APRESOLINE PO SCH (03:14)
[2017-03-19] MEDS ORDERED: D50W (25GM) Syringe IV ONE ×2 (05:26→12:09)
[2017-03-19] MEDS: INTROPIN DRIP 800 MG/D5W 250 ML 800 MG/250 ML BAG IV SCH (05:40)
[2017-03-19] MEDS: Vasostrict 20 UNIT in NACL 0.9% 100 ML IV SCH (07:30)
[2017-03-19] MEDS: CLARITIN PO SCH (08:28)
[2017-03-19] MEDS: NEURONTIN PO SCH (08:28)
[2017-03-19] MEDS: VITAMIN D3 PO SCH (08:29)
--- NOTE | 2017-03-19 09:12 | Progress Note ---
Assessment and Plan Impression: * End stage renal disease on HD (TTS outpatient schedule) * Septic shock * Pancytopenia * Atrial fibrillation * Hyperkalemia - resolved * Acute hypoxic respiratory failure * Hx of ANCA associated vasculitis Plan: * No acute need for HD today; will plan for HD tomorrow if hemodynamically stable * Pressors prn MAP >65 * Empirc abx per primary team * Consider heme/onc consultation * Dose medications for renal function * Avoid potential nephrotoxins Subjective Date of service: 03/19/17 Interval history: Patient did not tolerate HD yesterday due to persistent tachycardia - HR in 150s. Overnight, patient intubated. Required multiple pressors, initially 5 per RN, now on 3. Objective - Vital Signs Vital signs: Vital Signs - 12hr 03/18/17 03/18/17 03/18/17 21:16 21:30 21:46 Temperature Pulse Rate 82 162 H 139 H Pulse Rate [ Anterior Bilateral Throughout] Respiratory 118 H 18 57 H Rate Respiratory Rate [Anterior Bilateral Throughout] Blood Pressure 97/28 138/85 79/55 O2 Sat by Pulse 84 99 95 Oximetry 03/18/17 03/18/17 03/18/17 22:00 22:16 22:30 Temperature Pulse Rate 109 H 115 H 106 H Pulse Rate [ Anterior Bilateral Throughout] Respiratory 21 16 18 Rate Respiratory Rate [Anterior Bilateral Throughout] Blood Pressure 95/60 86/59 94/57 O2 Sat by Pulse 99 78 L 98 Oximetry 03/18/17 03/18/17 03/18/17 22:46 23:00 23:16 Temperature Pulse Rate 99 H 102 H 107 H Pulse Rate [ Anterior Bilateral Throughout] Respiratory 22 19 22 Rate Respiratory Rate [Anterior Bilateral Throughout] Blood Pressure 111/84 106/69 98/68 O2 Sat by Pulse 93 91 92 Oximetry 03/18/17 03/18/17 03/18/17 23:29 23:30 23:46 Temperature 98.4 F Pulse Rate 109 H 117 H Pulse Rate [ Anterior Bilateral Throughout] Respiratory 22 22 Rate Respiratory Rate [Anterior Bilateral Throughout] Blood Pressure 127/83 129/81 O2 Sat by Pulse 93 88 Oximetry 03/18/17 03/19/17 03/19/17 23:56 00:00 00:16 Temperature Pulse Rate 105 H 109 H 105 H Pulse Rate [ Anterior Bilateral Throughout] Respiratory 22 22 Rate Respiratory Rate [Anterior Bilateral Throughout] Blood Pressure 135/76 142/80 144/80 O2 Sat by Pulse 89 87 95 Oximetry 03/19/17 03/19/17 03/19/17 00:30 00:46 01:00 Temperature Pulse Rate 115 H 115 H 115 H Pulse Rate [ Anterior Bilateral Throughout] Respiratory 22 10 L 18 Rate Respiratory Rate [Anterior Bilateral Throughout] Blood Pressure 147/89 125/86 139/81 O2 Sat by Pulse 93 90 91 Oximetry 03/19/17 03/19/17 03/19/17 01:16 01:30 01:46 Temperature Pulse Rate 151 H 136 H 142 H Pulse Rate [ Anterior Bilateral Throughout] Respiratory 28 H 24 24 Rate Respiratory Rate [Anterior Bilateral Throughout] Blood Pressure 135/81 133/76 161/83 O2 Sat by Pulse 99 97 96 Oximetry 03/19/17 03/19/17 03/19/17 02:00 02:16 02:20 Temperature Pulse Rate 130 H 136 H Pulse Rate [ 122 H Anterior Bilateral Throughout] Respiratory 24 24 Rate Respiratory 24 Rate [Anterior Bilateral Throughout] Blood Pressure 140/83 100/70 O2 Sat by Pulse 98 97 Oximetry 03/19/17 03/19/17 03/19/17 02:30 02:35 02:46 Temperature Pulse Rate 127 H 131 H Pulse Rate [ 124 H Anterior Bilateral Throughout] Respiratory 24 25 H Rate Respiratory 24 Rate [Anterior Bilateral Throughout] Blood Pressure 69/45 128/83 O2 Sat by Pulse 100 100 Oximetry 03/19/17 03/19/17 03/19/17 03:00 03:16 03:30 Temperature Pulse Rate 135 H 138 H 134 H Pulse Rate [ Anterior Bilateral Throughout] Respiratory 25 H 24 25 H Rate Respiratory Rate [Anterior Bilateral Throughout] Blood Pressure 168/88 187/99 151/79 O2 Sat by Pulse 100 100 100 Oximetry 03/19/17 03/19/17 03/19/17 03:39 03:46 03:47 Temperature 98.1 F Pulse Rate 126 H 132 H Pulse Rate [ Anterior Bilateral Throughout] Respiratory 25 H Rate Respiratory Rate [Anterior Bilateral Throughout] Blood Pressure 127/50 O2 Sat by Pulse 100 Oximetry 03/19/17 03/19/17 03/19/17 03:57 04:00 04:16 Temperature Pulse Rate 121 H 118 H 117 H Pulse Rate [ Anterior Bilateral Throughout] Respiratory 24 24 Rate Respiratory Rate [Anterior Bilateral Throughout] Blood Pressure 173/87 173/87 86/47 O2 Sat by Pulse 100 100 100 Oximetry 03/19/17 03/19/17 03/19/17 04:30 04:46 05:00 Temperature Pulse Rate 120 H 155 H 130 H Pulse Rate [ Anterior Bilateral Throughout] Respiratory 24 24 24 Rate Respiratory Rate [Anterior Bilateral Throughout] Blood Pressure 80/52 199/113 211/106 O2 Sat by Pulse 100 93 Oximetry 03/19/17 03/19/17 03/19/17 05:16 05:30 05:46 Temperature Pulse Rate 116 H 107 H 140 H Pulse Rate [ Anterior Bilateral Throughout] Respiratory 24 24 25 H Rate Respiratory Rate [Anterior Bilateral Throughout] Blood Pressure 94/55 76/45 159/111 O2 Sat by Pulse 99 100 100 Oximetry 03/19/17 03/19/17 03/19/17 06:00 06:16 08:00 Temperature 99.1 F Pulse Rate 149 H 145 H Pulse Rate [ Anterior Bilateral Throughout] Respiratory 24 25 H Rate Respiratory Rate [Anterior Bilateral Throughout] Blood Pressure 182/113 134/86 O2 Sat by Pulse 99 98 Oximetry 03/19/17 03/19/17 08:44 08:51 Temperature Pulse Rate 101 H Pulse Rate [ 100 H Anterior Bilateral Throughout] Respiratory Rate Respiratory 24 Rate [Anterior Bilateral Throughout] Blood Pressure 169/82 O2 Sat by Pulse 98 Oximetry - General Appearance General appearance: intubated EENT: ATNC, other (ETT in place) Respiratory: Present: Other (coarse breath sounds) Cardiology: regular, S1S2 Gastrointestinal: hypoactive bowel sounds, no distended Integumentary: no rash, warm and dry Neurologic: other (sedated) Musculoskeletal: other (no edema) - Lab 03/18/17 21:45 03/19/17 05:30 Most recent lab results Calcium 9.2 mg/dL (8.4-10.2) 03/18/17 21:45
--- NOTE | 2017-03-19 10:06 | Progress Note ---
Assessment and Plan - Patient Problems (1) Acute hypoxemic respiratory failure Current Visit: No Status: Acute (2) Acute encephalopathy Current Visit: No Status: Acute (3) ESRD (end stage renal disease) on dialysis Current Visit: Yes Status: Chronic (4) Hyperkalemia, diminished renal excretion Current Visit: No Status: Acute (5) Hypotension (arterial) Current Visit: Yes Status: Acute Subjective Date of service: 03/19/17 Objective Vital Signs - 12hr 03/18/17 03/18/17 03/18/17 22:16 22:30 22:46 Temperature Pulse Rate 115 H 106 H 99 H Pulse Rate [ Anterior Bilateral Throughout] Respiratory 16 18 22 Rate Respiratory Rate [Anterior Bilateral Throughout] Blood Pressure 86/59 94/57 111/84 O2 Sat by Pulse 78 L 98 93 Oximetry 03/18/17 03/18/17 03/18/17 23:00 23:16 23:29 Temperature 98.4 F Pulse Rate 102 H 107 H Pulse Rate [ Anterior Bilateral Throughout] Respiratory 19 22 Rate Respiratory Rate [Anterior Bilateral Throughout] Blood Pressure 106/69 98/68 O2 Sat by Pulse 91 92 Oximetry 03/18/17 03/18/17 03/18/17 23:30 23:46 23:56 Temperature Pulse Rate 109 H 117 H 105 H Pulse Rate [ Anterior Bilateral Throughout] Respiratory 22 22 Rate Respiratory Rate [Anterior Bilateral Throughout] Blood Pressure 127/83 129/81 135/76 O2 Sat by Pulse 93 88 89 Oximetry 03/19/17 03/19/17 03/19/17 00:00 00:16 00:30 Temperature Pulse Rate 109 H 105 H 115 H Pulse Rate [ Anterior Bilateral Throughout] Respiratory 22 22 22 Rate Respiratory Rate [Anterior Bilateral Throughout] Blood Pressure 142/80 144/80 147/89 O2 Sat by Pulse 87 95 93 Oximetry 03/19/17 03/19/17 03/19/17 00:46 01:00 01:16 Temperature Pulse Rate 115 H 115 H 151 H Pulse Rate [ Anterior Bilateral Throughout] Respiratory 10 L 18 28 H Rate Respiratory Rate [Anterior Bilateral Throughout] Blood Pressure 125/86 139/81 135/81 O2 Sat by Pulse 90 91 99 Oximetry 03/19/17 03/19/17 03/19/17 01:30 01:46 02:00 Temperature Pulse Rate 136 H 142 H 130 H Pulse Rate [ Anterior Bilateral Throughout] Respiratory 24 24 24 Rate Respiratory Rate [Anterior Bilateral Throughout] Blood Pressure 133/76 161/83 140/83 O2 Sat by Pulse 97 96 98 Oximetry 03/19/17 03/19/17 03/19/17 02:16 02:20 02:30 Temperature Pulse Rate 136 H 127 H Pulse Rate [ 122 H Anterior Bilateral Throughout] Respiratory 24 24 Rate Respiratory 24 Rate [Anterior Bilateral Throughout] Blood Pressure 100/70 69/45 O2 Sat by Pulse 97 100 Oximetry 03/19/17 03/19/17 03/19/17 02:35 02:46 03:00 Temperature Pulse Rate 131 H 135 H Pulse Rate [ 124 H Anterior Bilateral Throughout] Respiratory 25 H 25 H Rate Respiratory 24 Rate [Anterior Bilateral Throughout] Blood Pressure 128/83 168/88 O2 Sat by Pulse 100 100 Oximetry 03/19/17 03/19/17 03/19/17 03:16 03:30 03:39 Temperature Pulse Rate 138 H 134 H 126 H Pulse Rate [ Anterior Bilateral Throughout] Respiratory 24 25 H Rate Respiratory Rate [Anterior Bilateral Throughout] Blood Pressure 187/99 151/79 O2 Sat by Pulse 100 100 Oximetry 03/19/17 03/19/17 03/19/17 03:46 03:47 03:57 Temperature 98.1 F Pulse Rate 132 H 121 H Pulse Rate [ Anterior Bilateral Throughout] Respiratory 25 H Rate Respiratory Rate [Anterior Bilateral Throughout] Blood Pressure 127/50 173/87 O2 Sat by Pulse 100 100 Oximetry 03/19/17 03/19/17 03/19/17 04:00 04:16 04:30 Temperature Pulse Rate 118 H 117 H 120 H Pulse Rate [ Anterior Bilateral Throughout] Respiratory 24 24 24 Rate Respiratory Rate [Anterior Bilateral Throughout] Blood Pressure 173/87 86/47 80/52 O2 Sat by Pulse 100 100 100 Oximetry 03/19/17 03/19/17 03/19/17 04:46 05:00 05:16 Temperature Pulse Rate 155 H 130 H 116 H Pulse Rate [ Anterior Bilateral Throughout] Respiratory 24 24 24 Rate Respiratory Rate [Anterior Bilateral Throughout] Blood Pressure 199/113 211/106 94/55 O2 Sat by Pulse 93 99 Oximetry 03/19/17 03/19/17 03/19/17 05:30 05:46 06:00 Temperature Pulse Rate 107 H 140 H 149 H Pulse Rate [ Anterior Bilateral Throughout] Respiratory 24 25 H 24 Rate Respiratory Rate [Anterior Bilateral Throughout] Blood Pressure 76/45 159/111 182/113 O2 Sat by Pulse 100 100 99 Oximetry 03/19/17 03/19/17 03/19/17 06:16 08:00 08:44 Temperature 99.1 F Pulse Rate 145 H 101 H Pulse Rate [ Anterior Bilateral Throughout] Respiratory 25 H Rate Respiratory Rate [Anterior Bilateral Throughout] Blood Pressure 134/86 169/82 O2 Sat by Pulse 98 98 Oximetry 03/19/17 08:51 Temperature Pulse Rate Pulse Rate [ 100 H Anterior Bilateral Throughout] Respiratory Rate Respiratory 24 Rate [Anterior Bilateral Throughout] Blood Pressure O2 Sat by Pulse Oximetry Constitutional: lethargic, other (on NIPPV, just spontaneously and intermittently opens his eyes) ENT: oropharynx moist Neck: supple, no lymphadenopathy, no JVD Effort: mildly labored Ascultation: Bilateral: diminished breath sounds, rhonchi Cardiovascular: other (tachycardia, S1,S2, no murmurs, gallops or rubs) Extremities: no cyanosis, no edema, pulses normal, no ischemia or petechiae Neurologic: unable to assess CBC and BMP: 03/18/17 21:45 03/19/17 05:30 ABG, PT/INR, D-dimer: ABG POC ABG pH 7.326 (7.35-7.45) L 03/19/17 04:01 POC ABG pCO2 55.6 (35-45) H 03/19/17 04:01 POC ABG pO2 141 (80-105) H 03/19/17 04:01 POC ABG HCO3 29.0 03/19/17 04:01 POC ABG Total CO2 31 03/19/17 04:01 POC ABG O2 Sat 99 03/19/17 04:01 PT/INR, D-dimer PT 14.2 Sec. (12.2-14.9) 03/18/17 03:11 INR 1.05 (0.87-1.13) 03/18/17 03:11 Abnormal lab findings: Abnormal Labs 03/17/17 03/17/17 03/17/17 14:08 14:19 16:36 WBC RBC Hgb 11.6 L Hct MCV 105 H MCHC 30 L RDW 18.0 H Plt Count 105 L Seg Neuts % (Manual) Lymphocytes % (Manual) Monocytes % (Manual) 17.0 H Nucleated RBC % Seg Neutrophils # Man Lymphocytes # (Manual) Monocytes # (Manual) 1.3 H POC ABG pH POC ABG pCO2 POC ABG pO2 Sodium Potassium 8.3 H* Chloride Carbon Dioxide 14 L BUN 79 H Creatinine 16.8 H Glucose 74 L POC Glucose 210 H Lactic Acid Calcium Troponin T 0.155 H* Total Protein Albumin Triglycerides 229 H HDL Cholesterol 32 L 03/17/17 03/17/17 03/18/17 16:53 21:31 03:11 WBC RBC 3.62 L Hgb 11.6 L Hct MCV 101 H MCHC RDW 16.8 H Plt Count 93 L Seg Neuts % (Manual) 79.0 H Lymphocytes % (Manual) 12.0 L Monocytes % (Manual) Nucleated RBC % Seg Neutrophils # Man Lymphocytes # (Manual) 0.8 L Monocytes # (Manual) POC ABG pH 7.161 L POC ABG pCO2 68.4 H POC ABG pO2 123 H Sodium Potassium Chloride Carbon Dioxide BUN Creatinine Glucose POC Glucose 156 H Lactic Acid Calcium Troponin T Total Protein Albumin Triglycerides HDL Cholesterol 03/18/17 03/18/17 03/18/17 03:11 03:45 06:29 WBC RBC Hgb Hct MCV MCHC RDW Plt Count Seg Neuts % (Manual) Lymphocytes % (Manual) Monocytes % (Manual) Nucleated RBC % Seg Neutrophils # Man Lymphocytes # (Manual) Monocytes # (Manual) POC ABG pH 7.224 L 7.174 L POC ABG pCO2 74.6 H 86.1 H POC ABG pO2 70 L 229 H Sodium Potassium 5.9 H D Chloride 94.9 L Carbon Dioxide BUN 46 H Creatinine 12.7 H Glucose 104 H POC Glucose Lactic Acid Calcium 8.2 L Troponin T Total Protein 6.0 L Albumin 3.5 L Triglycerides HDL Cholesterol 03/18/17 03/18/17 03/18/17 07:57 09:07 19:02 WBC RBC Hgb Hct MCV MCHC RDW Plt Count Seg Neuts % (Manual) Lymphocytes % (Manual) Monocytes % (Manual) Nucleated RBC % Seg Neutrophils # Man Lymphocytes # (Manual) Monocytes # (Manual) POC ABG pH 7.260 L POC ABG pCO2 62.8 H POC ABG pO2 74 L Sodium Potassium 5.1 H Chloride Carbon Dioxide BUN Creatinine Glucose POC Glucose 114 H Lactic Acid Calcium Troponin T Total Protein Albumin Triglycerides HDL Cholesterol 03/18/17 03/18/17 03/18/17 21:45 21:45 21:59 WBC 2.6 L RBC 3.09 L Hgb 9.8 L Hct 32.1 L MCV 104 H MCHC 31 L RDW 17.0 H Plt Count 75 L Seg Neuts % (Manual) Lymphocytes % (Manual) 56.0 H Monocytes % (Manual) Nucleated RBC % 1.0 H Seg Neutrophils # Man 1.0 L Lymphocytes # (Manual) Monocytes # (Manual) POC ABG pH POC ABG pCO2 POC ABG pO2 Sodium 147 H Potassium Chloride Carbon Dioxide BUN 40 H Creatinine 9.7 H Glucose 143 H POC Glucose 222 H Lactic Acid Calcium Troponin T Total Protein Albumin Triglycerides HDL Cholesterol 03/18/17 03/18/17 03/19/17 22:04 23:40 01:01 WBC RBC Hgb Hct MCV MCHC RDW Plt Count Seg Neuts % (Manual) Lymphocytes % (Manual) Monocytes % (Manual) Nucleated RBC % Seg Neutrophils # Man Lymphocytes # (Manual) Monocytes # (Manual) POC ABG pH 7.105 L 7.294 L POC ABG pCO2 74.4 H 60.2 H POC ABG pO2 175 H 60 L Sodium Potassium Chloride Carbon Dioxide BUN Creatinine Glucose POC Glucose Lactic Acid 6.10 H* Calcium Troponin T Total Protein Albumin Triglycerides HDL Cholesterol 03/19/17 03/19/17 03/19/17 04:01 05:23 05:30 WBC RBC Hgb Hct MCV MCHC RDW Plt Count Seg Neuts % (Manual) Lymphocytes % (Manual) Monocytes % (Manual) Nucleated RBC % Seg Neutrophils # Man Lymphocytes # (Manual) Monocytes # (Manual) POC ABG pH 7.326 L POC ABG pCO2 55.6 H POC ABG pO2 141 H Sodium Potassium Chloride Carbon Dioxide BUN Creatinine Glucose 43 L POC Glucose < 40 L Lactic Acid Calcium Troponin T Total Protein Albumin Triglycerides HDL Cholesterol
--- NOTE | 2017-03-19 11:59 | Consultation ---
History of Present Illness Consult date: 03/19/17 Consult reason: atrial fibrillation History of present illness: This is a 71yr old male with end stage renal disease who in admitted to the CCU. Patient is currently intubated on mechanical ventilation and on multiple pressors for support. A cardiac consultation was requested for rapid atrial fibrillation during dialysis which was treated with IV amiodarone. He has since returned to a stable sinus rhythm. Past History Past Medical History: ESRD, hypertension, hyperlipidemia, other (Hx of ANCA vasculitis) Social history: other (Unable to obtain) Family history: other (Unable to obtain) Medications and Allergies Allergies Allergy/AdvReac Type Severity Reaction Status Date / Time No Known Allergies Allergy Verified 08/19/16 10:17 Home Medications Medication Instructions Recorded Confirmed Last Taken Type Doxazosin [Cardura] 2 mg PO QDAY 02/25/16 03/17/17 Unknown History Amlodipine Besylate [Norvasc] 10 mg PO QDAY 03/17/17 03/17/17 Unknown History Ammonium Lactate [Lac-Hydrin 1 applicatio TP Q12H 03/17/17 03/17/17 Unknown History Lotion] AtorvaSTATin [Lipitor] 20 mg PO QHS 03/17/17 03/17/17 Unknown History Cholecalciferol (Vitamin D3) 5,000 unit PO QDAY 03/17/17 03/17/17 Unknown History [Vitamin D3] Gabapentin [Neurontin] 100 mg PO DAILY 03/17/17 03/17/17 Unknown History Loratadine 10 mg PO DAILY 03/17/17 03/17/17 Unknown History Metoprolol [Lopressor] 100 mg PO QDAY 03/17/17 03/17/17 Unknown History Montelukast [Singulair] 10 mg PO QPM 03/17/17 03/17/17 Unknown History Paliperidone [Invega] 6 mg PO QDAY 03/17/17 03/17/17 Unknown History Sevelamer HCl [Renagel] 800 mg PO TIDWM 03/17/17 03/17/17 Unknown History hydrALAZINE [Apresoline TAB] 100 mg PO Q8H 03/17/17 03/17/17 Unknown History Active Meds: Active Medications Acetaminophen (Tylenol) 650 mg PO Q4H PRN PRN Reason: Pain MILD(1-3)/Fever >100.5/HOWARD Last Admin: 12/27/17 20:27 Dose: 650 mg Albuterol (Proventil) 2.5 mg IH Q4HRT PRN PRN Reason: Wheezing Albuterol/Ipratropium (Duoneb *Not For Prn Use*) 1 ampul IH Q6HRT [facility] Last Admin: 03/19/17 08:50 Dose: 1 ampul Lipase/Protease/Amylase (Pancremargarita Dr 10,500 Unit) 1 each FEEDTUBE PRN PRN PRN Reason: For Clogged Feeding Tube Atorvastatin Calcium (Lipitor) 20 mg PO QHS [facility] Last Admin: 03/18/17 23:19 Dose: 20 mg Bisacodyl (Dulcolax) 10 mg SC QDAY PRN PRN Reason: Constipation unrelieved by MOM Cholecalciferol (Vitamin D3) 5,000 unit PO DAILY [facility] Last Admin: 03/18/17 09:35 Dose: Not Given Gabapentin (Neurontin) 100 mg PO DAILY [facility] Last Admin: 03/18/17 09:35 Dose: Not Given Heparin Sodium (Porcine) (Heparin) 5,000 unit SUB-Q Q12HR [facility] Last Admin: 03/18/17 23:19 Dose: 5,000 unit Sodium Chloride (Nacl 0.9%) 100 mls @ 999 mls/hr IV LIO PRN PRN Reason: Hypotension Piperacillin Sod/Tazobactam Sod (Zosyn/Ns 2.25 Gm/50ml) 2.25 gm in 50 mls @ 100 mls/hr IV Q12H [facility] Last Admin: 03/19/17 02:29 Dose: 100 mls/hr Norepinephrine 8 mg/ Sodium (Chloride) 250 mls @ 3.75 mls/hr IV TITR DORITA; 2 MCG /MIN PRN Reason: Protocol Last Admin: 03/19/17 07:30 Dose: 20 mcg/min, 37.5 mls/hr Vasopressin 20 unit/ Sodium (Chloride) 101 mls @ 9.09 mls/hr IV TITR DORITA; 0.03 UNITS/MIN PRN Reason: Protocol Last Admin: 03/19/17 07:30 Dose: 0.03 units/min, 9.09 mls/hr Epinephrine 8 mg/ Sodium (Chloride) 250 mls @ 3.75 mls/hr IV TITR DORITA; 2 MCG/ MIN PRN Reason: Protocol Last Titration: 03/19/17 08:30 Dose: 0 mcg/min, 0 mls/hr Phenylephrine HCl 100 mg/ (Sodium Chloride) 100 mls @ 3 mls/hr IV TITR DORITA; 50 MCG/MIN PRN Reason: Protocol Last Titration: 03/19/17 08:00 Dose: 0 mcg/min, 0 mls/hr Amiodarone HCl 900 mg/ (Dextrose) 500 mls @ 33.33 mls/hr IV DIRECT DORITA; 1 MG /MIN PRN Reason: Protocol Dopamine HCl/Dextrose (Intropin Drip 800 Mg/D5w 250 Ml) 800 mg in 250 mls @ 4.252 mls/hr IV TITR DORITA; 2 MCG/KG/MIN PRN Reason: Protocol Last Titration: 03/19/17 09:25 Dose: 5 mcg/kg/min, 10.628 mls/hr Lactic Acid (Lac-Hydrin) 1 applic TP Q12H [facility] Last Admin: 03/18/17 20:16 Dose: 1 applic Loratadine (Claritin) 10 mg PO DAILY [facility] Last Admin: 03/18/17 09:35 Dose: Not Given Magnesium Hydroxide (Milk Of Magnesia) 30 ml PO Q4H PRN PRN Reason: Constipation Metoprolol Tartrate (Lopressor) 100 mg PO QDAY [facility] Last Admin: 03/18/17 20:18 Dose: 100 mg Miscellaneous Medication (Paliperidone [Invega]) 6 mg PO QDAY [facility] Montelukast Sodium (Singulair) 10 mg PO QPM [facility] Morphine Sulfate (Morphine) 4 mg IV Q4H PRN PRN Reason: Pain , Severe (7-10) Morphine Sulfate (Morphine) 2 mg IV Q4H PRN PRN Reason: Pain, Moderate (4-6) Ondansetron HCl (Zofran) 4 mg IV Q8H PRN PRN Reason: N/V unrelieved by Reglan Oxycodone/Acetaminophen (Percocet 5/325) 1 tab PO Q6H PRN PRN Reason: Pain, Moderate (4-6) Simple Syrup (Simple Syrup) 15 ml FEEDTUBE PRN PRN PRN Reason: Hypoglycemia Simple Syrup (Simple Syrup) 30 ml FEEDTUBE PRN PRN PRN Reason: Hypoglycemia Sodium Bicarbonate (Sodium Bicarbonate) 325 mg FEEDTUBE PRN PRN PRN Reason: For Clogged Feeding Tube Sodium Chloride (Sodium Chloride Flush Syringe 10 Ml) 10 ml IV PRN PRN PRN Reason: LINE FLUSH Physical Examination Vital Signs Resp Pulse Ox 16 100 03/17/17 16:05 03/17/17 16:05 General appearance: other (intubated on the vent) Cardiac: Positive: Reg Rate and Rhythm Results 03/18/17 21:45 03/19/17 05:30 CBC 03/18/17 Range/Units 21:45 WBC 2.6 L (4.5-11.0) K/mm3 RBC 3.09 L (3.65-5.03) M/mm3 Hgb 9.8 L (11.8-15.2) gm/dl Hct 32.1 L (35.5-45.6) % Plt Count 75 L (140-440) K/mm3 Comprehensive Metabolic Panel 03/18/17 03/18/17 03/19/17 Range/Units 19:02 21:45 05:30 Sodium 147 H (137-145) mmol/L Potassium 5.1 H 4.3 (3.6-5.0) mmol/L Chloride 98.9 (98-107) mmol/L Carbon Dioxide 24 (22-30) mmol/L BUN 40 H (9-20) mg/dL Creatinine 9.7 H (0.8-1.5) mg/dL Glucose 143 H 43 L (75-100) mg/dL Calcium 9.2 (8.4-10.2) mg/dL
[2017-03-19] MEDS ORDERED: LANOXIN IV ONE (12:30)
[2017-03-19] MEDS ORDERED: CORDARONE PO SCH (13:00)
[2017-03-19] MEDS: LOPRESSOR PO SCH (13:07)
--- NOTE | 2017-03-19 14:11 | Progress Note ---
Assessment and Plan Assessment and plan: Severe Sepsis. Present on admission. Patient is hypotensive requiring multiple pressor agents. Titrate to maintain MAP greater than 65 mmHg. , continue IV antibiotics. Consider ID consultation if family plans to be aggressive. Check blood cultures and lactic acid levels. Most recent lactic level 6.1 Acute hypoxemic respiratory failure. Continue BiPAP as clinically indicated. Acute CVA. Neurology consultation pending. Follow-up echocardiogram and MRI when patient stable. ESRD. Continue hemodialysis per nephrology. Hyperkalemia. Patient status post calcium gluconate, D50/Insulin, Kayexalate and emergent hemodialysis BPH. Hold medication given hypotension Asthma. The high probability of a clinically significant, sudden or life threatening deterioration of the [respiratory and immunologic] system(s) required my full and direct attention, intervention and personal management. The aggregate critical care time was [33] minutes. This time is in addition to time spent performing reported procedures but includes the following: [x] Data Review and interpretation [x] Patient assessment and monitoring of vital signs [x] Documentation [x] Medication orders and management History Interval history: The patient is a 71-year-old man with end-stage renal disease on hemodialysis. He was admitted 2 days ago to the hospital with complaints of weakness that was reportedly localized to the left side. on 03/18/17, a CODE BLUE was called for respiratory failure. The patient underwent ACLS resuscitation, and is currently unresponsive, intubated in the ICU. The patient has developed hypotension that requires multiple pressor agents. The family is considering withdrawing/deceleration of care. Hospitalist Physical - Constitutional Vitals: Temp Pulse Resp BP Pulse Ox 99.1 F 84 25 H 113/69 99 03/19/17 08:00 03/19/17 13:15 03/19/17 13:15 03/19/17 13:06 03/19/17 12:30 General appearance: Present: other (intubated on the vent) - EENT Eyes: Present: PERRL, EOM intact ENT: hearing intact, clear oral mucosa, dentition normal - Neck Neck: Present: supple, normal ROM - Respiratory Respiratory effort: normal Respiratory: bilateral: diminished, rhonchi - Cardiovascular Rhythm: regular Heart Sounds: Present: S1 & S2. Absent: gallop, rub - Extremities Extremities: no ischemia, No edema, Full ROM - Abdominal General gastrointestinal: soft, non-tender, non-distended, normal bowel sounds - Integumentary Integumentary: Present: clear, warm, dry - Neurologic Neurologic: CNII-XII intact, moves all extremities Results - Labs CBC & Chem 7: 03/18/17 21:45 03/19/17 05:30 Labs: Laboratory Last Values WBC 2.6 K/mm3 (4.5-11.0) L 03/18/17 21:45 RBC 3.09 M/mm3 (3.65-5.03) L 03/18/17 21:45 Hgb 9.8 gm/dl (11.8-15.2) L 03/18/17 21:45 Hct 32.1 % (35.5-45.6) L 03/18/17 21:45 MCV 104 fl (84-94) H 03/18/17 21:45 MCH 32 pg (28-32) 03/18/17 21:45 MCHC 31 % (32-34) L 03/18/17 21:45 RDW 17.0 % (13.2-15.2) H 03/18/17 21:45 Plt Count 75 K/mm3 (140-440) L 03/18/17 21:45 Add Manual Diff Complete 03/18/17 21:45 Total Counted 100 03/18/17 21:45 Seg Neuts % (Manual) 40.0 % (40.0-70.0) 03/18/17 21:45 Band Neutrophils % 0 % 03/18/17 21:45 Lymphocytes % (Manual) 56.0 % (13.4-35.0) H 03/18/17 21:45 Reactive Lymphs % (Man) 1.0 % 03/18/17 21:45 Monocytes % (Manual) 3.0 % (0.0-7.3) 03/18/17 21:45 Eosinophils % (Manual) 0 % (0.0-4.3) 03/18/17 21:45 Basophils % (Manual) 0 % (0.0-1.8) 03/18/17 21:45 Metamyelocytes % 0 % 03/18/17 21:45 Myelocytes % 0 % 03/18/17 21:45 Promyelocytes % 0 % 03/18/17 21:45 Blast Cells % 0 % 03/18/17 21:45 Nucleated RBC % 1.0 % (0.0-0.9) H 03/18/17 21:45 Seg Neutrophils # Man 1.0 K/mm3 (1.8-7.7) L 03/18/17 21:45 Band Neutrophils # 0.0 K/mm3 03/18/17 21:45 Lymphocytes # (Manual) 1.5 K/mm3 (1.2-5.4) 03/18/17 21:45 Abs React Lymphs (Man) 0.0 K/mm3 03/18/17 21:45 Monocytes # (Manual) 0.1 K/mm3 (0.0-0.8) 03/18/17 21:45 Eosinophils # (Manual) 0.0 K/mm3 (0.0-0.4) 03/18/17 21:45 Basophils # (Manual) 0.0 K/mm3 (0.0-0.1) 03/18/17 21:45 Metamyelocytes # 0.0 K/mm3 03/18/17 21:45 Myelocytes # 0.0 K/mm3 03/18/17 21:45 Promyelocytes # 0.0 K/mm3 03/18/17 21:45 Blast Cells # 0.0 K/mm3 03/18/17 21:45 WBC Morphology Not Reportable 03/18/17 21:45 Hypersegmented Neuts Not Reportable 03/18/17 21:45 Hyposegmented Neuts Not Reportable 03/18/17 21:45 Hypogranular Neuts Not Reportable 03/18/17 21:45 Smudge Cells Not Reportable 03/18/17 21:45 Toxic Granulation Not Reportable 03/18/17 21:45 Toxic Vacuolation Not Reportable 03/18/17 21:45 Dohle Bodies Not Reportable 03/18/17 21:45 Pelger-Huet Anomaly Not Reportable 03/18/17 21:45 Alison Rods Not Reportable 03/18/17 21:45 Platelet Estimate Consistent w auto 03/18/17 21:45 Clumped Platelets Not Reportable 03/18/17 21:45 Plt Clumps, EDTA Not Reportable 03/18/17 21:45 Large Platelets Not Reportable 03/18/17 21:45 Giant Platelets Not Reportable 03/18/17 21:45 Platelet Satelliting Not Reportable 03/18/17 21:45 Plt Morphology Comment Not Reportable 03/18/17 21:45 RBC Morphology Not Reportable 03/18/17 21:45 Dimorphic RBCs Not Reportable 03/18/17 21:45 Polychromasia Not Reportable 03/18/17 21:45 Hypochromasia Not Reportable 03/18/17 21:45 Poikilocytosis Not Reportable 03/18/17 21:45 Anisocytosis 1+ 03/18/17 21:45 Microcytosis Not Reportable 03/18/17 21:45 Macrocytosis 1+ 03/18/17 21:45 Spherocytes Not Reportable 03/18/17 21:45 Pappenheimer Bodies Not Reportable 03/18/17 21:45 Sickle Cells Not Reportable 03/18/17 21:45 Target Cells Not Reportable 03/18/17 21:45 Tear Drop Cells Not Reportable 03/18/17 21:45 Ovalocytes Not Reportable 03/18/17 21:45 Helmet Cells Not Reportable 03/18/17 21:45 Benjamin-Ocosta Bodies Not Reportable 03/18/17 21:45 [place] Rings Not Reportable 03/18/17 21:45 Alvin Cells Not Reportable 03/18/17 21:45 Bite Cells Not Reportable 03/18/17 21:45 Crenated Cell Not Reportable 03/18/17 21:45 Elliptocytes Not Reportable 03/18/17 21:45 Acanthocytes (Spur) Not Reportable 03/18/17 21:45 Rouleaux Not Reportable 03/18/17 21:45 Hemoglobin C Crystals Not Reportable 03/18/17 21:45 Schistocytes Not Reportable 03/18/17 21:45 Malaria parasites Not Reportable 03/18/17 21:45 Austen Bodies Not Reportable 03/18/17 21:45 Hem Pathologist Commnt No 03/18/17 21:45 PT 14.2 Sec. (12.2-14.9) 03/18/17 03:11 INR 1.05 (0.87-1.13) 03/18/17 03:11 APTT 36.1 Sec. (24.2-36.6) 03/18/17 03:11 POC ABG pH 7.326 (7.35-7.45) L 03/19/17 04:01 POC ABG pCO2 55.6 (35-45) H 03/19/17 04:01 POC ABG pO2 141 (80-105) H 03/19/17 04:01 POC ABG HCO3 29.0 03/19/17 04:01 POC ABG Total CO2 31 03/19/17 04:01 POC ABG O2 Sat 99 03/19/17 04:01 POC ABG Base Excess 3 03/19/17 04:01 FiO2 100 % 03/19/17 04:01 Sodium 147 mmol/L (137-145) H 03/18/17 21:45 Potassium 4.3 mmol/L (3.6-5.0) 03/18/17 21:45 Chloride 98.9 mmol/L (98-107) 03/18/17 21:45 Carbon Dioxide 24 mmol/L (22-30) 03/18/17 21:45 Anion Gap 28 mmol/L 03/18/17 21:45 BUN 40 mg/dL (9-20) H 03/18/17 21:45 Creatinine 9.7 mg/dL (0.8-1.5) H 03/18/17 21:45 Estimated GFR 6 ml/min 03/18/17 21:45 BUN/Creatinine Ratio 4 % 03/18/17 21:45 Glucose 43 mg/dL (75-100) L 03/19/17 05:30 POC Glucose 101 (70-105) 03/19/17 06:43 Hemoglobin A1c 4.3 % (4-6) 03/17/17 19:30 Lactic Acid 6.10 mmol/L (0.7-2.0) H* 03/18/17 23:40 Calcium 9.2 mg/dL (8.4-10.2) 03/18/17 21:45 Total Bilirubin 0.50 mg/dL (0.1-1.2) 03/18/17 03:11 AST 33 units/L (5-40) 03/18/17 03:11 ALT 12 units/L (7-56) 03/18/17 03:11 Alkaline Phosphatase 66 units/L (35-129) 03/18/17 03:11 Troponin T 0.155 ng/mL (0.00-0.029) H* 03/17/17 14:19 Total Protein 6.0 g/dL (6.3-8.2) L 03/18/17 03:11 Albumin 3.5 g/dL (3.9-5) L 03/18/17 03:11 Albumin/Globulin Ratio 1.4 % 03/18/17 03:11 Triglycerides 229 mg/dL (2-149) H 03/17/17 14:19 Cholesterol 129 mg/dL (50-199) 03/17/17 14:19 LDL Cholesterol Direct 52 mg/dL (50-130) 03/17/17 14:19 HDL Cholesterol 32 mg/dL (40-59) L 03/17/17 14:19 Cholesterol/HDL Ratio 4.03 % 03/17/17 14:19 Blood Type O NEGATIVE 03/18/17 11:57 Antibody Screen TNR 03/18/17 11:57 BRENT Antibody Screen Negative 03/18/17 11:57
--- NOTE | 2017-03-19 14:40 | Consultation ---
History of Present Illness - Reason for Consult Consult date: 03/19/17 septic shock Requesting physician: YESY CAMARGO - History of Present Illness 71 years old male with history of ESRD on HD who missed dialysis the day of admission, patient admitted on due to 2-day history of AMS / left-sided weakness and 5 day history of SOB, cough and chest congestion. He has HD via a left AVF. Patient currently is unable to provide a history due to intubation. Upon admission, initial temperature was 102.4, heart rate 1:15, respirations 26 , O2 sat 96, blood pressure 179/80. Initial white count 7.8. Hemoglobin 11.6. Platelets 105. Creatinine 16. Potassium 8.3. Lactic acid 6.1. Saturation was in the 70s when EMS arrived. Microbiology: Blood cultures: 03/18 ngtd Respiratory cultures: 03/18 +GNR Current Antimicrobials: Zosyn 03/18 Vancomycin 03/18 Previous Antimicrobials: Past History Past Medical History: ESRD, hypertension, hyperlipidemia, other (Hx of ANCA vasculitis) Social history: other (Unable to obtain) Family history: other (Unable to obtain) Medications and Allergies Allergies Allergy/AdvReac Type Severity Reaction Status Date / Time No Known Allergies Allergy Verified 08/19/16 10:17 Home Medications Medication Instructions Recorded Confirmed Last Taken Type Doxazosin [Cardura] 2 mg PO QDAY 02/25/16 03/17/17 Unknown History Amlodipine Besylate [Norvasc] 10 mg PO QDAY 03/17/17 03/17/17 Unknown History Ammonium Lactate [Lac-Hydrin 1 applicatio TP Q12H 03/17/17 03/17/17 Unknown History Lotion] AtorvaSTATin [Lipitor] 20 mg PO QHS 03/17/17 03/17/17 Unknown History Cholecalciferol (Vitamin D3) 5,000 unit PO QDAY 03/17/17 03/17/17 Unknown History [Vitamin D3] Gabapentin [Neurontin] 100 mg PO DAILY 03/17/17 03/17/17 Unknown History Loratadine 10 mg PO DAILY 03/17/17 03/17/17 Unknown History Metoprolol [Lopressor] 100 mg PO QDAY 03/17/17 03/17/17 Unknown History Montelukast [Singulair] 10 mg PO QPM 03/17/17 03/17/17 Unknown History Paliperidone [Invega] 6 mg PO QDAY 03/17/17 03/17/17 Unknown History Sevelamer HCl [Renagel] 800 mg PO TIDWM 03/17/17 03/17/17 Unknown History hydrALAZINE [Apresoline TAB] 100 mg PO Q8H 03/17/17 03/17/17 Unknown History Active Meds: Active Medications Acetaminophen (Tylenol) 650 mg PO Q4H PRN PRN Reason: Pain MILD(1-3)/Fever >100.5/HOWARD Last Admin: 03/18/17 20:27 Dose: 650 mg Albuterol (Proventil) 2.5 mg IH Q4HRT PRN PRN Reason: Wheezing Albuterol/Ipratropium (Duoneb *Not For Prn Use*) 1 ampul IH Q6HRT [facility] Last Admin: 03/19/17 13:15 Dose: 1 ampul Amiodarone HCl (Cordarone) 200 mg PO QDAY [facility] Last Admin: 03/19/17 13:06 Dose: 200 mg Lipase/Protease/Amylase (Pancreaze Dr 10,500 Unit) 1 each FEEDTUBE PRN PRN PRN Reason: For Clogged Feeding Tube Atorvastatin Calcium (Lipitor) 20 mg PO QHS [facility] Last Admin: 03/18/17 23:19 Dose: 20 mg Bisacodyl (Dulcolax) 10 mg MO QDAY PRN PRN Reason: Constipation unrelieved by MOM Cholecalciferol (Vitamin D3) 5,000 unit PO DAILY [facility] Last Admin: 03/18/17 09:35 Dose: Not Given Digoxin (Lanoxin) 0.125 mg IV Q72HR [facility] Gabapentin (Neurontin) 100 mg PO DAILY [facility] Last Admin: 03/18/17 09:35 Dose: Not Given Heparin Sodium (Porcine) (Heparin) 5,000 unit SUB-Q Q12HR [facility] Last Admin: 03/18/17 23:19 Dose: 5,000 unit Sodium Chloride (Nacl 0.9%) 100 mls @ 999 mls/hr IV LIO PRN PRN Reason: Hypotension Piperacillin Sod/Tazobactam Sod (Zosyn/Ns 2.25 Gm/50ml) 2.25 gm in 50 mls @ 100 mls/hr IV Q12H [facility] Last Admin: 03/19/17 02:29 Dose: 100 mls/hr Norepinephrine 8 mg/ Sodium (Chloride) 250 mls @ 3.75 mls/hr IV TITR [facility]; 2 MCG /MIN PRN Reason: Protocol Last Admin: 03/19/17 12:15 Dose: 20 mcg/min, 37.5 mls/hr Vasopressin 20 unit/ Sodium (Chloride) 101 mls @ 9.09 mls/hr IV TITR DORITA; 0.03 UNITS/MIN PRN Reason: Protocol Last Admin: 03/19/17 07:30 Dose: 0.03 units/min, 9.09 mls/hr Epinephrine 8 mg/ Sodium (Chloride) 250 mls @ 3.75 mls/hr IV TITR DOR[facility]; 2 MCG/ MIN PRN Reason: Protocol Last Titration: 03/19/17 08:30 Dose: 0 mcg/min, 0 mls/hr Phenylephrine HCl 100 mg/ (Sodium Chloride) 100 mls @ 3 mls/hr IV TITR DOR[facility]; 50 MCG/MIN PRN Reason: Protocol Last Titration: 03/19/17 08:00 Dose: 0 mcg/min, 0 mls/hr Amiodarone HCl 900 mg/ (Dextrose) 500 mls @ 33.33 mls/hr IV DIRECT [facility]OR[facility]; 1 MG /MIN PRN Reason: Protocol Dopamine HCl/Dextrose (Intropin Drip 800 Mg/D5w 250 Ml) 800 mg in 250 mls @ 4.252 mls/hr IV TITR [facility]; 2 MCG/KG/MIN PRN Reason: Protocol Last Titration: 03/19/17 09:25 Dose: 5 mcg/kg/min, 10.628 mls/hr Lactic Acid (Lac-Hydrin) 1 applic TP Q12H [facility] Last Admin: 03/18/17 20:16 Dose: 1 applic Loratadine (Claritin) 10 mg PO DAILY [facility] Last Admin: 03/18/17 09:35 Dose: Not Given Magnesium Hydroxide (Milk Of Magnesia) 30 ml PO Q4H PRN PRN Reason: Constipation Metoprolol Tartrate (Lopressor) 100 mg PO QDAY [facility] Last Admin: 03/19/17 13:07 Dose: Not Given Miscellaneous Medication (Paliperidone [Invega]) 6 mg PO QDAY [facility] Montelukast Sodium (Singulair) 10 mg PO QPM [facility] Morphine Sulfate (Morphine) 4 mg IV Q4H PRN PRN Reason: Pain , Severe (7-10) Morphine Sulfate (Morphine) 2 mg IV Q4H PRN PRN Reason: Pain, Moderate (4-6) Ondansetron HCl (Zofran) 4 mg IV Q8H PRN PRN Reason: N/V unrelieved by Reglan Oxycodone/Acetaminophen (Percocet 5/325) 1 tab PO Q6H PRN PRN Reason: Pain, Moderate (4-6) Simple Syrup (Simple Syrup) 15 ml FEEDTUBE PRN PRN PRN Reason: Hypoglycemia Simple Syrup (Simple Syrup) 30 ml FEEDTUBE PRN PRN PRN Reason: Hypoglycemia Sodium Bicarbonate (Sodium Bicarbonate) 325 mg FEEDTUBE PRN PRN PRN Reason: For Clogged Feeding Tube Sodium Chloride (Sodium Chloride Flush Syringe 10 Ml) 10 ml IV PRN PRN PRN Reason: LINE FLUSH Physical Examination - Physical Exam Narrative exam: General appearance: comatose on the vent in NAD Eyes: anicteric sclerae, moist conjunctivae; no lid-lag; PERRLA HENT: Atraumatic; oropharynx +ETT +NGT Neck: Trachea midline; supple, no thyromegaly or lymphadenopathy Lungs: trista coarse BS CV: RRR Abdomen: Soft, non-tender Extremities: left arm AVF, Skin: Normal temperature, turgor and texture; no rash, ulcers or subcutaneous nodules Psych: comatose. Neuro: unable to eval Lines: left SC TLC - Constitutional Vitals: Vital Signs Temp Pulse Resp BP Pulse Ox 99.1 F 84 25 H 113/69 99 03/19/17 08:00 03/19/17 13:15 03/19/17 13:15 03/19/17 13:06 03/19/17 12:30 Temperature -Last 24 Hours Temperature 99.1 F Temperature 98.1 F Temperature 98.4 F Temperature 102.3 F Temperature 100.2 F Temperature 99.2 F Temperature 99.2 F - Neck Neck: Present: enlarged thyroid Results - Labs CBC & Chem 7: 03/18/17 21:45 03/19/17 05:30 Labs: Abnormal lab results 03/18/17 03/18/17 03/18/17 Range/Units 07:57 19:02 21:45 WBC 2.6 L (4.5-11.0) K/mm3 RBC 3.09 L (3.65-5.03) M/mm3 Hgb 9.8 L (11.8-15.2) gm/dl Hct 32.1 L (35.5-45.6) % MCV 104 H (84-94) fl MCHC 31 L (32-34) % RDW 17.0 H (13.2-15.2) % Plt Count 75 L (140-440) K/mm3 Lymphocytes % (Manual) 56.0 H (13.4-35.0) % Nucleated RBC % 1.0 H (0.0-0.9) % Seg Neutrophils # Man 1.0 L (1.8-7.7) K/mm3 POC ABG pH (7.35-7.45) POC ABG pCO2 (35-45) POC ABG pO2 (80-105) Sodium (137-145) mmol/L Potassium 5.1 H (3.6-5.0) mmol/L BUN (9-20) mg/dL Creatinine (0.8-1.5) mg/dL Glucose (75-100) mg/dL POC Glucose 114 H (70-105) Lactic Acid (0.7-2.0) mmol/L 03/18/17 03/18/17 03/18/17 Range/Units 21:45 21:59 22:04 WBC (4.5-11.0) K/mm3 RBC (3.65-5.03) M/mm3 Hgb (11.8-15.2) gm/dl Hct (35.5-45.6) % MCV (84-94) fl MCHC (32-34) % RDW (13.2-15.2) % Plt Count (140-440) K/mm3 Lymphocytes % (Manual) (13.4-35.0) % Nucleated RBC % (0.0-0.9) % Seg Neutrophils # Man (1.8-7.7) K/mm3 POC ABG pH 7.105 L (7.35-7.45) POC ABG pCO2 74.4 H (35-45) POC ABG pO2 175 H (80-105) Sodium 147 H (137-145) mmol/L Potassium (3.6-5.0) mmol/L BUN 40 H (9-20) mg/dL Creatinine 9.7 H (0.8-1.5) mg/dL Glucose 143 H (75-100) mg/dL POC Glucose 222 H (70-105) Lactic Acid (0.7-2.0) mmol/L 03/18/17 03/19/17 03/19/17 Range/Units 23:40 01:01 04:01 WBC (4.5-11.0) K/mm3 RBC (3.65-5.03) M/mm3 Hgb (11.8-15.2) gm/dl Hct (35.5-45.6) % MCV (84-94) fl MCHC (32-34) % RDW (13.2-15.2) % Plt Count (140-440) K/mm3 Lymphocytes % (Manual) (13.4-35.0) % Nucleated RBC % (0.0-0.9) % Seg Neutrophils # Man (1.8-7.7) K/mm3 POC ABG pH 7.294 L 7.326 L (7.35-7.45) POC ABG pCO2 60.2 H 55.6 H (35-45) POC ABG pO2 60 L 141 H (80-105) Sodium (137-145) mmol/L Potassium (3.6-5.0) mmol/L BUN (9-20) mg/dL Creatinine (0.8-1.5) mg/dL Glucose (75-100) mg/dL POC Glucose (70-105) Lactic Acid 6.10 H* (0.7-2.0) mmol/L 03/19/17 03/19/17 Range/Units 05:23 05:30 WBC (4.5-11.0) K/mm3 RBC (3.65-5.03) M/mm3 Hgb (11.8-15.2) gm/dl Hct (35.5-45.6) % MCV (84-94) fl MCHC (32-34) % RDW (13.2-15.2) % Plt Count (140-440) K/mm3 Lymphocytes % (Manual) (13.4-35.0) % Nucleated RBC % (0.0-0.9) % Seg Neutrophils # Man (1.8-7.7) K/mm3 POC ABG pH (7.35-7.45) POC ABG pCO2 (35-45) POC ABG pO2 (80-105) Sodium (137-145) mmol/L Potassium (3.6-5.0) mmol/L BUN (9-20) mg/dL Creatinine (0.8-1.5) mg/dL Glucose 43 L (75-100) mg/dL POC Glucose < 40 L (70-105) Lactic Acid (0.7-2.0) mmol/L Assessment and Plan Assessment: 1) Severe Sepsis with septic shock: Present on admission, manifested by fever, tachycardia, hypotension, increased lactate. Etiology most likely pneumonia. 2) RLL pneumonia with large pleural effusion 3) ESRD on HD 4) Thrombocytopenia: from sepsis 5) Respiratory failure 6) Hyperkalemia Plan: -consider diagnostic thoracentesis r/o empyema -follow-up blood cultures -obtain respiratory cultures, procalcitonin, C-reactive protein (CRP) -check influenza antigen PCR in nasopharinx -check Legionella urine antigen, Streptococcus pneumoniae urine antigen -continue zosyn and vanco renally dosed -add levaquin for now I will be off until Mar 25, but available over the phone, please call me for questions. Thank you Dr Camargo for your consultation, will follow up with you. Cami Culp MD Infectious Diseases Specialist [facility] ([facility] M [phone] O [phone]
[2017-03-19] MEDS ORDERED: LEVAQUIN 750MG/150ML 750 MG/150 ML BAG IV SCH (15:00)
[2017-03-19] MEDS: LAC-HYDRIN TP SCH (22:58)
[2017-03-19] MEDS: HEPARIN SUB-Q SCH (22:58)
[2017-03-20] MEDS: DUONEB *Not for PRN Use IH SCH ×2 (04:33→08:21)
[2017-03-20] MEDS: MORPHINE IV PRN ×2 (08:44→14:45)
[2017-03-20] MEDS ORDERED: VASELINE LIP THERAPY TP ONE (09:05)
--- NOTE | 2017-03-20 09:06 | Progress Note ---
Assessment and Plan Impression: * End stage renal disease on HD (TTS outpatient schedule) * Septic shock * Pancytopenia * Atrial fibrillation * Hyperkalemia - resolved * Acute hypoxic respiratory failure Sputum - GNR * Hx of ANCA associated vasculitis Plan: * Note family decision to withdraw care * Will sign off Subjective Date of service: 03/20/17 Interval history: Per RN, family has decided to withdraw care. Objective - Exam Narrative Exam: Deferred - Vital Signs Vital signs: Vital Signs - 12hr 03/19/17 03/19/17 03/19/17 21:16 21:30 21:46 Temperature 99.1 F Pulse Rate 92 H 92 H 94 H Pulse Rate [ Anterior Bilateral Throughout] Respiratory 14 13 13 Rate Respiratory Rate [Anterior Bilateral Throughout] Blood Pressure 118/51 115/54 115/54 O2 Sat by Pulse 90 89 89 Oximetry 03/19/17 03/19/17 03/19/17 22:00 22:16 22:30 Temperature Pulse Rate 94 H 97 H 96 H Pulse Rate [ Anterior Bilateral Throughout] Respiratory 12 13 13 Rate Respiratory Rate [Anterior Bilateral Throughout] Blood Pressure 119/49 119/49 119/49 O2 Sat by Pulse 88 88 88 Oximetry 03/19/17 03/19/17 03/19/17 22:46 22:55 23:00 Temperature Pulse Rate 93 H 93 H 93 H Pulse Rate [ Anterior Bilateral Throughout] Respiratory 12 14 14 Rate Respiratory Rate [Anterior Bilateral Throughout] Blood Pressure 119/49 119/49 119/49 O2 Sat by Pulse 80 L 84 85 Oximetry 03/19/17 03/19/17 03/19/17 23:04 23:16 23:30 Temperature Pulse Rate 93 H 93 H 93 H Pulse Rate [ Anterior Bilateral Throughout] Respiratory 13 13 12 Rate Respiratory Rate [Anterior Bilateral Throughout] Blood Pressure 119/49 119/49 119/49 O2 Sat by Pulse 85 89 86 Oximetry 03/19/17 03/20/17 03/20/17 23:46 00:00 00:16 Temperature Pulse Rate 94 H 95 H 95 H Pulse Rate [ Anterior Bilateral Throughout] Respiratory 13 13 13 Rate Respiratory Rate [Anterior Bilateral Throughout] Blood Pressure 119/49 119/49 119/49 O2 Sat by Pulse 87 84 85 Oximetry 03/20/17 03/20/17 03/20/17 00:30 00:46 01:00 Temperature Pulse Rate 95 H 93 H 96 H Pulse Rate [ Anterior Bilateral Throughout] Respiratory 13 13 12 Rate Respiratory Rate [Anterior Bilateral Throughout] Blood Pressure 119/49 119/49 119/49 O2 Sat by Pulse 87 42 L 90 Oximetry 03/20/17 03/20/17 03/20/17 01:16 01:30 01:46 Temperature Pulse Rate 97 H 97 H 96 H Pulse Rate [ Anterior Bilateral Throughout] Respiratory 13 13 13 Rate Respiratory Rate [Anterior Bilateral Throughout] Blood Pressure 119/49 119/49 119/49 O2 Sat by Pulse 89 87 88 Oximetry 03/20/17 03/20/17 03/20/17 02:00 02:16 02:30 Temperature Pulse Rate 96 H 96 H 96 H Pulse Rate [ Anterior Bilateral Throughout] Respiratory 14 14 13 Rate Respiratory Rate [Anterior Bilateral Throughout] Blood Pressure 119/49 119/49 119/49 O2 Sat by Pulse 89 89 90 Oximetry 03/20/17 03/20/17 03/20/17 02:46 03:00 03:16 Temperature Pulse Rate 98 H 95 H 95 H Pulse Rate [ Anterior Bilateral Throughout] Respiratory 14 15 14 Rate Respiratory Rate [Anterior Bilateral Throughout] Blood Pressure 119/49 119/49 119/49 O2 Sat by Pulse 89 91 91 Oximetry 03/20/17 03/20/17 03/20/17 03:30 03:46 03:48 Temperature 98.5 F Pulse Rate 96 H 95 H Pulse Rate [ Anterior Bilateral Throughout] Respiratory 15 14 Rate Respiratory Rate [Anterior Bilateral Throughout] Blood Pressure 119/49 119/56 O2 Sat by Pulse 92 89 Oximetry 03/20/17 03/20/17 03/20/17 04:00 04:16 04:30 Temperature Pulse Rate 97 H 96 H 96 H Pulse Rate [ Anterior Bilateral Throughout] Respiratory 17 13 15 Rate Respiratory Rate [Anterior Bilateral Throughout] Blood Pressure 121/65 121/65 121/65 O2 Sat by Pulse 89 88 89 Oximetry 03/20/17 03/20/17 03/20/17 04:46 05:00 05:05 Temperature Pulse Rate 96 H 95 H Pulse Rate [ Anterior Bilateral Throughout] Respiratory 15 15 Rate Respiratory Rate [Anterior Bilateral Throughout] Blood Pressure 121/65 113/55 O2 Sat by Pulse 89 88 88 Oximetry 03/20/17 03/20/17 03/20/17 05:16 05:30 05:46 Temperature Pulse Rate 94 H 92 H 94 H Pulse Rate [ Anterior Bilateral Throughout] Respiratory 13 13 15 Rate Respiratory Rate [Anterior Bilateral Throughout] Blood Pressure 113/55 113/55 113/55 O2 Sat by Pulse 89 89 90 Oximetry 03/20/17 03/20/17 03/20/17 06:00 06:16 06:30 Temperature Pulse Rate 94 H 94 H 93 H Pulse Rate [ Anterior Bilateral Throughout] Respiratory 15 14 13 Rate Respiratory Rate [Anterior Bilateral Throughout] Blood Pressure 123/57 123/57 123/57 O2 Sat by Pulse 88 88 88 Oximetry 03/20/17 03/20/17 03/20/17 06:46 07:00 07:16 Temperature Pulse Rate 94 H 95 H 95 H Pulse Rate [ Anterior Bilateral Throughout] Respiratory 15 15 13 Rate Respiratory Rate [Anterior Bilateral Throughout] Blood Pressure 113/55 130/60 130/60 O2 Sat by Pulse 88 87 89 Oximetry 03/20/17 03/20/17 03/20/17 07:30 07:46 08:00 Temperature Pulse Rate 95 H 94 H 96 H Pulse Rate [ Anterior Bilateral Throughout] Respiratory 16 13 15 Rate Respiratory Rate [Anterior Bilateral Throughout] Blood Pressure 130/60 130/60 137/57 O2 Sat by Pulse 88 89 87 Oximetry 03/20/17 03/20/17 03/20/17 08:16 08:20 08:21 Temperature Pulse Rate 98 H Pulse Rate [ 97 H Anterior Bilateral Throughout] Respiratory 15 Rate Respiratory 14 Rate [Anterior Bilateral Throughout] Blood Pressure 137/57 O2 Sat by Pulse 87 93 Oximetry 03/20/17 08:31 Temperature Pulse Rate Pulse Rate [ 95 H Anterior Bilateral Throughout] Respiratory Rate Respiratory 13 Rate [Anterior Bilateral Throughout] Blood Pressure O2 Sat by Pulse Oximetry - Lab 03/18/17 21:45 03/19/17 05:30 Most recent lab results Calcium 9.2 mg/dL (8.4-10.2) 03/18/17 21:45
--- NOTE | 2017-03-20 12:50 | Progress Note ---
Assessment and Plan Severe Sepsis. Acute hypoxemic respiratory failure Acute CVA ESRD. Hyperkalemia. BPH - continue empiric AB's - continue supplemental oxygen to keep sats > 90% - HD/UF per hazardous waste technician - aspiration precautions - received calcium gluconate, D50/Insulin, Kayexalate and emergent hemodialysis for hyperkalemia ...family seriously contemplating hospice and if they all agree he will transfer later today Subjective Date of service: 03/20/17 Principal diagnosis: Severe Sepsis; Acute Hypoxemic Resp Failure; Acute CVA; ESRD on Dialysis Interval history: Patient is seen today for: Severe Sepsis; Acute Hypoxemic Resp Failure; Acute CVA; ESRD on Dialysis Seen and examined at bedside; 24hour events reviewed; nursing and respiratory care staff consulted; no adverse overnight events reported to me; resting in bed ; lethargic; slightly labored breathing; 4 children in room; no emesis or overt asp; contemplating hospice Objective Vital Signs - 12hr 03/20/17 03/20/17 03/20/17 01:00 01:16 01:30 Temperature Pulse Rate 96 H 97 H 97 H Pulse Rate [ Anterior Bilateral Throughout] Respiratory 12 13 13 Rate Respiratory Rate [Anterior Bilateral Throughout] Blood Pressure 119/49 119/49 119/49 O2 Sat by Pulse 90 89 87 Oximetry 03/20/17 03/20/17 03/20/17 01:46 02:00 02:16 Temperature Pulse Rate 96 H 96 H 96 H Pulse Rate [ Anterior Bilateral Throughout] Respiratory 13 14 14 Rate Respiratory Rate [Anterior Bilateral Throughout] Blood Pressure 119/49 119/49 119/49 O2 Sat by Pulse 88 89 89 Oximetry 03/20/17 03/20/17 03/20/17 02:30 02:46 03:00 Temperature Pulse Rate 96 H 98 H 95 H Pulse Rate [ Anterior Bilateral Throughout] Respiratory 13 14 15 Rate Respiratory Rate [Anterior Bilateral Throughout] Blood Pressure 119/49 119/49 119/49 O2 Sat by Pulse 90 89 91 Oximetry 03/20/17 03/20/17 03/20/17 03:16 03:30 03:46 Temperature Pulse Rate 95 H 96 H 95 H Pulse Rate [ Anterior Bilateral Throughout] Respiratory 14 15 14 Rate Respiratory Rate [Anterior Bilateral Throughout] Blood Pressure 119/49 119/49 119/56 O2 Sat by Pulse 91 92 89 Oximetry 1203/20/17 03/20/17 03:48 04:00 04:16 Temperature 98.5 F Pulse Rate 97 H 96 H Pulse Rate [ Anterior Bilateral Throughout] Respiratory 17 13 Rate Respiratory Rate [Anterior Bilateral Throughout] Blood Pressure 121/65 121/65 O2 Sat by Pulse 89 88 Oximetry 03/20/17 03/20/17 03/20/17 04:30 04:46 05:00 Temperature Pulse Rate 96 H 96 H 95 H Pulse Rate [ Anterior Bilateral Throughout] Respiratory 15 15 15 Rate Respiratory Rate [Anterior Bilateral Throughout] Blood Pressure 121/65 121/65 113/55 O2 Sat by Pulse 89 89 88 Oximetry 03/20/17 03/20/17 03/20/17 05:05 05:16 05:30 Temperature Pulse Rate 94 H 92 H Pulse Rate [ Anterior Bilateral Throughout] Respiratory 13 13 Rate Respiratory Rate [Anterior Bilateral Throughout] Blood Pressure 113/55 113/55 O2 Sat by Pulse 88 89 89 Oximetry 03/20/17 03/20/17 03/20/17 05:46 06:00 06:16 Temperature Pulse Rate 94 H 94 H 94 H Pulse Rate [ Anterior Bilateral Throughout] Respiratory 15 15 14 Rate Respiratory Rate [Anterior Bilateral Throughout] Blood Pressure 113/55 123/57 123/57 O2 Sat by Pulse 90 88 88 Oximetry 03/20/17 03/20/17 03/20/17 06:30 06:46 07:00 Temperature Pulse Rate 93 H 94 H 95 H Pulse Rate [ Anterior Bilateral Throughout] Respiratory 13 15 15 Rate Respiratory Rate [Anterior Bilateral Throughout] Blood Pressure 123/57 113/55 130/60 O2 Sat by Pulse 88 88 87 Oximetry 03/20/17 03/20/17 03/20/17 07:16 07:30 07:46 Temperature Pulse Rate 95 H 95 H 94 H Pulse Rate [ Anterior Bilateral Throughout] Respiratory 13 16 13 Rate Respiratory Rate [Anterior Bilateral Throughout] Blood Pressure 130/60 130/60 130/60 O2 Sat by Pulse 89 88 89 Oximetry 03/20/17 03/20/17 03/20/17 08:00 08:16 08:20 Temperature Pulse Rate 96 H 98 H Pulse Rate [ Anterior Bilateral Throughout] Respiratory 15 15 Rate Respiratory Rate [Anterior Bilateral Throughout] Blood Pressure 137/57 137/57 O2 Sat by Pulse 87 87 93 Oximetry 03/20/17 03/20/17 08:21 08:31 Temperature Pulse Rate Pulse Rate [ 97 H 95 H Anterior Bilateral Throughout] Respiratory Rate Respiratory 14 13 Rate [Anterior Bilateral Throughout] Blood Pressure O2 Sat by Pulse Oximetry Constitutional: lethargic, other (on NIPPV, just spontaneously and intermittently opens his eyes) Eyes: non-icteric ENT: oropharynx moist Neck: supple, no lymphadenopathy, no JVD Effort: mildly labored Ascultation: Bilateral: diminished breath sounds, rhonchi Percussion: Bilateral: not dull Cardiovascular: regular rate and rhythm, other (tachycardia, S1,S2, no murmurs, gallops or rubs) Gastrointestinal: normoactive bowel sounds, soft, non-tender, non-distended, other (No HSM) Extremities: no cyanosis, no edema, pulses normal, no ischemia or petechiae Neurologic: unable to assess Psychiatric: other (unable to assess) CBC and BMP: 03/18/17 21:45 03/19/17 05:30 ABG, PT/INR, D-dimer: ABG POC ABG pH 7.326 (7.35-7.45) L 03/19/17 04:01 POC ABG pCO2 55.6 (35-45) H 03/19/17 04:01 POC ABG pO2 141 (80-105) H 03/19/17 04:01 POC ABG HCO3 29.0 03/19/17 04:01 POC ABG Total CO2 31 03/19/17 04:01 POC ABG O2 Sat 99 03/19/17 04:01 PT/INR, D-dimer PT 14.2 Sec. (12.2-14.9) 03/18/17 03:11 INR 1.05 (0.87-1.13) 03/18/17 03:11 Abnormal lab findings: Abnormal Labs 03/17/17 03/17/17 03/17/17 14:08 14:19 16:36 WBC RBC Hgb 11.6 L Hct MCV 105 H MCHC 30 L RDW 18.0 H Plt Count 105 L Seg Neuts % (Manual) Lymphocytes % (Manual) Monocytes % (Manual) 17.0 H Nucleated RBC % Seg Neutrophils # Man Lymphocytes # (Manual) Monocytes # (Manual) 1.3 H POC ABG pH POC ABG pCO2 POC ABG pO2 Sodium Potassium 8.3 H* Chloride Carbon Dioxide 14 L BUN 79 H Creatinine 16.8 H Glucose 74 L POC Glucose 210 H Lactic Acid Calcium Troponin T 0.155 H* Total Protein Albumin Triglycerides 229 H HDL Cholesterol 32 L 03/17/17 03/17/17 03/18/17 16:53 21:31 03:11 WBC RBC 3.62 L Hgb 11.6 L Hct MCV 101 H MCHC RDW 16.8 H Plt Count 93 L Seg Neuts % (Manual) 79.0 H Lymphocytes % (Manual) 12.0 L Monocytes % (Manual) Nucleated RBC % Seg Neutrophils # Man Lymphocytes # (Manual) 0.8 L Monocytes # (Manual) POC ABG pH 7.161 L POC ABG pCO2 68.4 H POC ABG pO2 123 H Sodium Potassium Chloride Carbon Dioxide BUN Creatinine Glucose POC Glucose 156 H Lactic Acid Calcium Troponin T Total Protein Albumin Triglycerides HDL Cholesterol 03/18/17 03/18/17 03/18/17 03:11 03:45 06:29 WBC RBC Hgb Hct MCV MCHC RDW Plt Count Seg Neuts % (Manual) Lymphocytes % (Manual) Monocytes % (Manual) Nucleated RBC % Seg Neutrophils # Man Lymphocytes # (Manual) Monocytes # (Manual) POC ABG pH 7.224 L 7.174 L POC ABG pCO2 74.6 H 86.1 H POC ABG pO2 70 L 229 H Sodium Potassium 5.9 H D Chloride 94.9 L Carbon Dioxide BUN 46 H Creatinine 12.7 H Glucose 104 H POC Glucose Lactic Acid Calcium 8.2 L Troponin T Total Protein 6.0 L Albumin 3.5 L Triglycerides HDL Cholesterol 03/18/17 03/18/17 03/18/17 07:57 09:07 19:02 WBC RBC Hgb Hct MCV MCHC RDW Plt Count Seg Neuts % (Manual) Lymphocytes % (Manual) Monocytes % (Manual) Nucleated RBC % Seg Neutrophils # Man Lymphocytes # (Manual) Monocytes # (Manual) POC ABG pH 7.260 L POC ABG pCO2 62.8 H POC ABG pO2 74 L Sodium Potassium 5.1 H Chloride Carbon Dioxide BUN Creatinine Glucose POC Glucose 114 H Lactic Acid Calcium Troponin T Total Protein Albumin Triglycerides HDL Cholesterol 03/18/17 03/18/17 03/18/17 21:45 21:45 21:59 WBC 2.6 L RBC 3.09 L Hgb 9.8 L Hct 32.1 L MCV 104 H MCHC 31 L RDW 17.0 H Plt Count 75 L Seg Neuts % (Manual) Lymphocytes % (Manual) 56.0 H Monocytes % (Manual) Nucleated RBC % 1.0 H Seg Neutrophils # Man 1.0 L Lymphocytes # (Manual) Monocytes # (Manual) POC ABG pH POC ABG pCO2 POC ABG pO2 Sodium 147 H Potassium Chloride Carbon Dioxide BUN 40 H Creatinine 9.7 H Glucose 143 H POC Glucose 222 H Lactic Acid Calcium Troponin T Total Protein Albumin Triglycerides HDL Cholesterol 03/18/17 03/18/17 03/19/17 22:04 23:40 01:01 WBC RBC Hgb Hct MCV MCHC RDW Plt Count Seg Neuts % (Manual) Lymphocytes % (Manual) Monocytes % (Manual) Nucleated RBC % Seg Neutrophils # Man Lymphocytes # (Manual) Monocytes # (Manual) POC ABG pH 7.105 L 7.294 L POC ABG pCO2 74.4 H 60.2 H POC ABG pO2 175 H 60 L Sodium Potassium Chloride Carbon Dioxide BUN Creatinine Glucose POC Glucose Lactic Acid 6.10 H* Calcium Troponin T Total Protein Albumin Triglycerides HDL Cholesterol 03/19/17 03/19/17 03/19/17 04:01 05:23 05:30 WBC RBC Hgb Hct MCV MCHC RDW Plt Count Seg Neuts % (Manual) Lymphocytes % (Manual) Monocytes % (Manual) Nucleated RBC % Seg Neutrophils # Man Lymphocytes # (Manual) Monocytes # (Manual) POC ABG pH 7.326 L POC ABG pCO2 55.6 H POC ABG pO2 141 H Sodium Potassium Chloride Carbon Dioxide BUN Creatinine Glucose 43 L POC Glucose < 40 L Lactic Acid Calcium Troponin T Total Protein Albumin Triglycerides HDL Cholesterol 03/19/17 12:05 WBC RBC Hgb Hct MCV MCHC RDW Plt Count Seg Neuts % (Manual) Lymphocytes % (Manual) Monocytes % (Manual) Nucleated RBC % Seg Neutrophils # Man Lymphocytes # (Manual) Monocytes # (Manual) POC ABG pH POC ABG pCO2 POC ABG pO2 Sodium Potassium Chloride Carbon Dioxide BUN Creatinine Glucose POC Glucose 48 L Lactic Acid Calcium Troponin T Total Protein Albumin Triglycerides HDL Cholesterol Chest x-ray: image reviewed Allied health notes reviewed: nursing
--- NOTE | 2017-03-20 13:10 | Progress Note ---
Assessment and Plan Sepsis Transient rapid atrial fibrillation s/p resuscitation since returned back to a stable sinus rhythm. ESRD on HD Acute Respiratory failure Moderate to large Right pleural effusion Leukopenia Thrombocytopenia AND status Echocardiogram was done that reported normal left ventricular systolic function , ejection fraction 60-65%. Conservative cardiac management. Subjective Date of service: 03/20/17 Interval history: Family has decided comfort measures only per RN. Objective Vital Signs Temp Pulse Pulse Resp Resp BP Pulse Ox 03/20/17 08:31 95 H 13 03/20/17 08:21 97 H 14 03/20/17 08:20 93 03/20/17 08:16 98 H 15 137/57 87 03/20/17 08:00 96 H 15 137/57 87 03/20/17 07:46 94 H 13 130/60 89 03/20/17 07:30 95 H 16 130/60 88 03/20/17 07:16 95 H 13 130/60 89 03/20/17 07:00 95 H 15 130/60 87 03/20/17 06:46 94 H 15 113/55 88 03/20/17 06:30 93 H 13 123/57 88 03/20/17 06:16 94 H 14 123/57 88 03/20/17 06:00 94 H 15 123/57 88 03/20/17 05:46 94 H 15 113/55 90 03/20/17 05:30 92 H 13 113/55 89 03/20/17 05:16 94 H 13 113/55 89 03/20/17 05:05 88 03/20/17 05:00 95 H 15 113/55 88 03/20/17 04:46 96 H 15 121/65 89 03/20/17 04:30 96 H 15 121/65 89 03/20/17 04:16 96 H 13 121/65 88 03/20/17 04:00 97 H 17 121/65 89 03/20/17 03:48 98.5 F 03/20/17 03:46 95 H 14 119/56 89 03/20/17 03:30 96 H 15 119/49 92 03/20/17 03:16 95 H 14 119/49 91 03/20/17 03:00 95 H 15 119/49 91 03/20/17 02:46 98 H 14 119/49 89 03/20/17 02:30 96 H 13 119/49 90 03/20/17 02:16 96 H 14 119/49 89 03/20/17 02:00 96 H 14 119/49 89 03/20/17 01:46 96 H 13 119/49 88 03/20/17 01:30 97 H 13 119/49 87 03/20/17 01:16 97 H 13 119/49 89 03/20/17 01:00 96 H 12 119/49 90 03/20/17 00:46 93 H 13 119/49 42 L 03/20/17 00:30 95 H 13 119/49 87 03/20/17 00:16 95 H 13 119/49 85 03/20/17 00:00 95 H 13 119/49 84 03/19/17 23:46 94 H 13 119/49 87 03/19/17 23:30 93 H 12 119/49 86 03/19/17 23:16 93 H 13 119/49 89 03/19/17 23:04 93 H 13 119/49 85 03/19/17 23:00 93 H 14 119/49 85 03/19/17 22:55 93 H 14 119/49 84 03/19/17 22:46 93 H 12 119/49 80 L 03/19/17 22:30 96 H 13 119/49 88 03/19/17 22:16 97 H 13 119/49 88 03/19/17 22:00 94 H 12 119/49 88 03/19/17 21:46 94 H 13 115/54 89 03/19/17 21:30 99.1 F 92 H 13 115/54 89 03/19/17 21:16 92 H 14 118/51 90 03/19/17 21:00 92 H 13 118/51 90 03/19/17 20:46 92 H 13 115/54 90 03/19/17 20:30 91 H 13 160/61 91 03/19/17 20:16 91 H 14 160/61 88 03/19/17 20:00 93 H 15 160/61 100 03/19/17 19:46 89 14 133/66 88 03/19/17 19:30 85 24 120/58 98 03/19/17 19:16 85 24 123/57 100 03/19/17 19:00 81 24 134/56 100 03/19/17 18:46 80 24 139/67 100 03/19/17 18:30 79 24 143/68 99 03/19/17 18:16 79 25 H 142/66 100 03/19/17 18:00 82 24 138/76 100 03/19/17 17:46 77 24 145/68 100 03/19/17 17:30 81 24 141/70 100 03/19/17 17:16 81 24 143/69 100 03/19/17 17:00 81 24 136/68 99 03/19/17 16:46 80 18 122/63 99 03/19/17 16:30 79 20 101/78 96 03/19/17 16:16 80 23 121/66 99 03/19/17 16:00 99.3 F 81 24 123/66 03/19/17 15:52 82 129/71 99 03/19/17 15:46 82 24 134/66 99 03/19/17 15:30 81 24 129/69 99 03/19/17 15:16 83 24 128/68 100 03/19/17 15:00 81 24 130/76 99 03/19/17 14:46 84 24 123/68 99 03/19/17 14:30 84 24 118/67 99 03/19/17 14:16 84 24 127/69 99 03/19/17 14:00 85 24 126/70 99 03/19/17 13:46 86 24 123/69 99 03/19/17 13:45 83 24 03/19/17 13:30 88 25 H 113/70 99 03/19/17 13:16 86 21 119/68 99 03/19/17 13:15 84 25 H - Physical Examination Cardiac: Positive: Reg Rate and Rhythm
[2017-03-20 13:16] VITALS: BP 103/52
--- NOTE | 2017-03-20 13:32 | Discharge Summary ---
Providers - Providers Date of Admission: 03/17/17 18:29 Date of discharge: 03/20/17 Attending physician: CECILE MAYFIELD 03/17/17 18:29 Consult to Physician [CONS] Routine Consulting Provider: TODD PALACIOS Reason For Exam: esrd Place consult to:: NEPHROLOGY Notified:: Y Was contact made?: Yes If yes, spoke with:: DR FELIX Time called:: 17:20 03/18/17 03:45 Consult to Physician [CONS] Routine Consulting Provider: YESY DEY Reason For Exam: acute respiratory failure Place consult to:: Dr. Dey Notified:: yes 03/18/17 04:59 Consult to Physician [CONS] Routine Consulting Provider: MIKE JAIMES Reason For Exam: central line placement Place consult to:: Fiona Notified:: DR Jaimes 03/18/17 07:29 Occupational Therapy Evaluate and Treat [CONS] Routine Comment: Reason For Exam: Neuro deficits Physical Therapy Evaluation and Treat [CONS] Routine Comment: Reason For Exam: Neuro deficits 03/18/17 07:32 Consult to Physician [CONS] Routine Consulting Provider: TONIE VELÁSQUEZ Reason For Exam: cVA Place consult to:: Dr. Velásquez Notified:: yes 03/18/17 18:50 Consult to Physician [CONS] Routine Consulting Provider: JACKIE HANNA Reason For Exam: tachycardia Place consult to:: Dr. Hanna Notified:: yes Phone number called:: [phone] If yes, spoke with:: Dr. Lin Time called:: 19:00 03/19/17 09:55 Consult to Physician [CONS] Routine Consulting Provider: GORDO KIM Reason For Exam: sepsis Place consult to:: Dr. Varma Notified:: yes Time called:: 09:56 Comment:: placed on list Primary care physician: ZEENAT PORTILLO Hospitalization Reason for admission: sepsis Condition: Stable Hospital course: 71 years old male with history of ESRD on HD who missed dialysis the day of admission and was admitted due to 2-day history of AMS / left-sided weakness and 5 day history of SOB, cough and chest congestion. He has HD via a left AVF. Upon admission, initial temperature was 102.4, heart rate 1:15, respirations 26, O2 sat 96, blood pressure 179/80. Initial white count 7.8. Hemoglobin 11.6. Platelets 105. Creatinine 16. Potassium 8.3. Lactic acid 6.1. Saturation was in the 70s when EMS arrived. The patient was admitted for acute hypoxemic respiratory failure, sepsis, ESRD, right lower lobe gram- negative pneumonia with pleural effusion and toxic metabolic encephalopathy. Patient was seen by pulmonary, cardiology, nephrology and neurology consultants. The patient initially was treated with BiPAP for respiratory failure and admitted to the ICU. Unfortunately, patient did not improve with BiPAP and was intubated. The patient continued to deteriorate and decline requiring pressors for hypotension. He later had a CODE BLUE on the evening of 03/18/17 at approximately 2100. Patient was noted to have a PEA arrest. Please see code note for details. The patient developed transient rapid atrial fibrillation following the PEA arrest and was seen by cardiology in consultation. He was treated with a single bolus of intravenous amiodarone, and has since returned back to a stable sinus rhythm. Serial ECGs showed evidence of left ventricular hypertrophy with nonspecific repolarization abnormalities. There is no acute ischemia or infarction on ECGs. The sputum culture revealed gram-negative rods. The family later in the hospital stay opted for DO NOT RESUSCITATE and withdrawal/deceleration of care. The patient was extubated. Patient will be transferred to [facility] inpatient hospice. Dedicated discharge time 32 minutes. Disposition: [facility] ([facility]) Time spent for discharge: 32 - Discharge Diagnoses (1) Toxic metabolic encephalopathy Status: Acute (2) ESRD (end stage renal disease) on dialysis Status: Chronic (3) Acute hypoxemic respiratory failure Status: Acute (4) Pleural effusion Status: Acute (5) ESRD (end stage renal disease) on dialysis Status: Chronic Core Measure Documentation - Palliative Care Palliative Care/ Comfort Measures: Hospice Care - Core Measures Any of the following diagnoses?: none Exam - Constitutional Vitals: Temp Pulse Resp BP Pulse Ox 98.5 F 95 H 13 137/57 93 03/20/17 03:48 03/20/17 08:31 03/20/17 08:31 03/20/17 08:16 03/20/17 08:20 General appearance: Present: no acute distress, well-nourished - EENT Eyes: Present: PERRL ENT: hearing intact, clear oral mucosa - Neck Neck: Present: supple, normal ROM - Respiratory Respiratory effort: normal Respiratory: bilateral: diminished, rhonchi - Cardiovascular Heart Sounds: Present: S1 & S2. Absent: rub, click - Extremities Extremities: pulses symmetrical, No edema Peripheral Pulses: within normal limits - Abdominal General gastrointestinal: Present: soft, non-tender, non-distended, normal bowel sounds Male genitourinary: Present: normal - Integumentary Integumentary: Present: clear, warm, dry - Musculoskeletal Musculoskeletal: gait normal, strength equal bilaterally - Psychiatric Psychiatric: appropriate mood/affect, intact judgment & insight - Neurologic Neurologic: CNII-XII intact, moves all extremities Plan Activity: advance as tolerated Weight Bearing Status: Non-Weight Bearing Diet: other (per med director) Follow up with: ZEENAT PORTILLO MD [Primary Care Provider] - 3-5 Days
[2017-03-20 21:27] LABS: Myeloperoxidase Antibody 4.8 AI (<1.0)
[2017-03-22] MEDS ORDERED: LANOXIN IV SCH (17:00)
--- NOTE | 2017-03-25 15:06 | Vascular Lab Report ---
CAROTID DUPLEX STUDY: RIGHT PSVEDV CCA PROX:[id number] CCA [id number] ICA PROX:9214 ICA MID:6911 ICA DIST:8616 ECA: 97 VERT: 96 14 LEFT PSVEDV CCA PROX:[id number] CCA DIST:8719 ICA PROX:5611 ICA MID:[id number] ICA DIST:[id number] ECA: 149 VERT: 166 12 REASON FOR EXAM: Stroke. COMMENTS ON THE RIGHT: Doppler frequency analysis is consistent with 16 to 49 percent diameter reduction of the internal carotid artery. Some calcified plaque is seen in the bulb. The common carotid artery is patent. The external carotid artery is patent. The vertebral artery has antegrade flow. COMMENTS ON THE LEFT: Doppler frequency analysis is consistent with 16 to 49 percent diameter reduction of the internal carotid artery. There is calcified plaque in the bulb. The common carotid artery is patent. The external carotid artery is patent. The vertebral artery has antegrade flow. IMPRESSION: Less than 50% diameter reduction in the internal carotid arteries bilaterally. Consider repeat study in one year due to calcified plaque in the bulb.
== END 2017-03-20 16:45 | disposition hospice, inpatient (51) | DRG 871 ==
LOC: ED 13:20 → CC1 18:29
PROVIDERS: ADMIT Internal Medicine; ATTEND Hospitalist
PROC: 5A09357 Assistance with Respiratory Ventilation, Less than 24 Consecutive Hours, Continuous Positive Airway Pressure (ICD-10-PCS; 2017-03-17)
PROC: 4A033R1 Measurement of Arterial Saturation, Peripheral, Percutaneous Approach (ICD-10-PCS; 2017-03-17)
PROC: 5A1D70Z Performance of Urinary Filtration, Intermittent, Less than 6 Hours Per Day (ICD-10-PCS; 2017-03-17)
PROC: 02HV33Z Insertion of Infusion Device into Superior Vena Cava, Percutaneous Approach (ICD-10-PCS; principal; 2017-03-18)
PROC: 5A09357 Assistance with Respiratory Ventilation, Less than 24 Consecutive Hours, Continuous Positive Airway Pressure (ICD-10-PCS; 2017-03-18)
PROC: 5A1945Z Respiratory Ventilation, 24-96 Consecutive Hours (ICD-10-PCS; 2017-03-18)
PROC: 0BH17EZ Insertion of Endotracheal Airway into Trachea, Via Natural or Artificial Opening (ICD-10-PCS; 2017-03-18)
PROC: B548ZZA Ultrasonography of Superior Vena Cava, Guidance (ICD-10-PCS; 2017-03-18)
PROC: 5A1D70Z Performance of Urinary Filtration, Intermittent, Less than 6 Hours Per Day (ICD-10-PCS; 2017-03-18)
DX: A41.9 Sepsis, unspecified organism (principal); J96.01 Acute respiratory failure with hypoxia; N18.6 End stage renal disease; I63.9 Cerebral infarction, unspecified; J15.6 Pneumonia due to other Gram-negative bacteria; G92 Toxic encephalopathy; J90 Pleural effusion, not elsewhere classified; I13.2 Hypertensive heart and chronic kidney disease with heart failure and with stage 5 chronic kidney disease, or end stage renal disease; D61.818 Other pancytopenia; R65.20 Severe sepsis without septic shock; J45.909 Unspecified asthma, uncomplicated; E87.5 Hyperkalemia; I48.91 Unspecified atrial fibrillation; F20.9 Schizophrenia, unspecified; J44.9 Chronic obstructive pulmonary disease, unspecified; I50.9 Heart failure, unspecified; N40.0 Benign prostatic hyperplasia without lower urinary tract symptoms; D69.6 Thrombocytopenia, unspecified; Z79.899 Other long term (current) drug therapy
CPT/HCPCS: 31500; 36415; 36600; 70450; 71010; 74000; 80048; 80053; 80061; 82140; 82803; 82947; 82962; 83036; 84132; 84484; 85007; 85025; 85610; 85730; 86021; 86160; 86850; 86900; 86901; 87040; 87070; 87076; 87186; 87205; 92950; 93005; 93010; 93306; 93880; 94002; 94003; 94640; 94660; 94760; 95819; 96374; 96375; A9270-GY; J0153; J0171; J0282; J0610; J1160; J1265; J1644; J1815; J2270; J2370; J2543; J3370; J7030; J7050; J7060; J7120; P9047